=== PATIENT | female | born 1955 | race Caucasian/White ===

== ENCOUNTER 2017-09-25 17:47 | Inpatient (IN) | END 2017-09-29 10:49 | disposition left against medical advice (07) | DRG 291 ==

== ENCOUNTER 2018-10-05 11:34 | Inpatient (IN) | payer BC ==
[~2018-10-05] VITALS: Ht 177.8 cm; Wt 106.5 kg
[2018-10-05] MEDS ORDERED: PIPER-TAZO 3.375 GM IV (PMX) 100 ML IVPB STA (17:48)
[2018-10-05] MEDS ORDERED: VANCOMYCIN 1 GM (PMX) 250 ML IVPB STA (17:48)
--- NOTE | 2018-10-05 17:49 | ERD ---
ER Documentation Chief Complaint Chief Complaint Pt referred to Ed with severe lymph edema and cullulitis HPI This is a 63-year-old female with a history of CHF, as well as atrial fibrillation who presents with shortness of breath and bilateral lower extremity edema. She has a lesion over her right bhandari, and had been referred for surgical removal, she saw the surgeon today, who noted lower extremity swelling, and redness and pain, and recommended she evaluated. Additionally over the last week patient has complained of exertional shortness of breath, with associated chest pain. She has been smoking marijuana for many years, she is a former tobacco user. He denies a fever ROS All systems reviewed and are negative except as per history of present illness. Medications Home Meds Reported Medications Estradiol (Estradiol) 1 Each Patch.tdwk, 1 EACH TD Q7D 10/05/18 Torsemide (Torsemide) 20 Mg Tablet, 20 MG PO DAILY, TAB 10/05/18 Pramipexole* (Pramipexole*) 0.25 Mg Tablet, 0.25 MG PO TID, TAB 10/05/18 Apixaban* (Eliquis*) 5 Mg Tablet, 5 MG PO BID, TAB 10/05/18 Allergies Allergies: Coded Allergies: No Known Allergy (Unverified , 10/05/18) spoke with pt, no known allergy PMhx/Soc History of Surgery: Yes Anesthesia Reaction: No Hx Neurological Disorder: Yes (restless leg syndrome) Hx Respiratory Disorders: No Hx Cardiac Disorders: Yes Hx Psychiatric Problems: No Hx Miscellaneous Medical Probl: No Hx Alcohol Use: No Hx Substance Use: No Hx Tobacco Use: No Physical Exam Vitals Vital Signs Date Temp Pulse Resp B/P (MAP) Pulse Ox O2 O2 Flow FiO2 Time Delivery Rate 10/05/18 68 16 110/80 99 Room Air 19:10 (90) 10/05/18 72 18 100 21 19:09 10/05/18 97.9 91 16 125/81 97 11:38 (96) Physical Exam Const: Well-developed, well-nourished, nontoxic Head: Atraumatic Eyes: Normal Conjunctiva ENT: Normal External Ears, Nose and Mouth. Neck: Full range of motion. No meningismus. Resp: Breath sounds are coarse bilaterally, there is mild wheezing noted Cardio: Regular rate and rhythm, no murmurs Abd: Soft, non tender, non distended. Normal bowel sounds Skin: No petechiae or rashes Back: No midline or flank tenderness Ext: There is significant edema noted bilaterally, with erythema and induration, there are no fluctuant masses, there is a 2 x 2 area with an irregular shaped lesion, with no purulent drainage, pulses are intact distally Neur: Awake and alert Psych: Normal Mood and Affect Result Diagram: 10/05/18183110/05/18 183 Results 24 hrs Laboratory Tests Test 10/05/18 18:32 10/05/18 18:35 White Blood Count 8.9 10^3/ul Red Blood Count 3.99 10^6/ul Hemoglobin 12.0 g/dl Hematocrit 37.6 % Mean Corpuscular Volume 94.2 fl Mean Corpuscular Hemoglobin 30.1 pg Mean Corpuscular Hemoglobin Concent 31.9 g/dl Red Cell Distribution Width 14.8 % Platelet Count 206 10^3/UL Mean Platelet Volume 9.9 fl Immature Granulocytes % 0.500 % Neutrophils % 74.7 % Lymphocytes % 13.0 % Monocytes % 8.6 % Eosinophils % 2.6 % Basophils % 0.6 % Nucleated Red Blood Cells % 0.0 /100WBC Immature Granulocytes # 0.040 10^3/ul Neutrophils # 6.6 10^3/ul Lymphocytes # 1.2 10^3/ul Monocytes # 0.8 10^3/ul Eosinophils # 0.2 10^3/ul Basophils # 0.1 10^3/ul Nucleated Red Blood Cells # 0.0 10^3/ul Prothrombin Time 14.6 Sec Prothrombin Time Ratio 1.1 INR International Normalized Ratio 1.13 Activated Partial Thromboplast Time 28.4 Sec Urine Color YELLOW Urine Clarity SLIGHTLY CLOUDY Urine pH 7.0 Urine Specific [place] 1.029 Urine Ketones TRACE mg/dL Urine Nitrite NEGATIVE mg/dL Urine Bilirubin NEGATIVE mg/dL Urine Urobilinogen 1+ mg/dL Urine Leukocyte Esterase TRACE O[place]a/ul Urine Microscopic RBC 2 /HPF Urine Microscopic WBC 1 /HPF Urine Bacteria FEW /HPF Urine Hemoglobin NEGATIVE mg/dL Urine Glucose NEGATIVE mg/dL Urine Total Protein NEGATIVE mg/dl Sodium Level 141 mmol/L Potassium Level 4.4 mmol/L Chloride Level 107 mmol/L Carbon Dioxide Level 28 mmol/L Anion Gap 6 Blood Urea Nitrogen 21 mg/dl Creatinine 0.89 mg/dl Est Glomerular Filtrat Rate mL/min > 60 mL/min Glucose Level 93 mg/dl Calcium Level 8.9 mg/dl Total Bilirubin 0.2 mg/dl Direct Bilirubin 0.00 mg/dl Indirect Bilirubin 0.2 mg/dl Aspartate Amino Transf (AST/SGOT) 41 IU/L Alanine Aminotransferase (ALT/SGPT) 34 IU/L Alkaline Phosphatase 110 IU/L Troponin I < 0.012 ng/ml B-Type Natriuretic Peptide 1330 PG/ML Total Protein 6.6 g/dl Albumin 3.6 g/dl Globulin 3.00 g/dl Albumin/Globulin Ratio 1.20 POC Venous Lactate 2.1 mmol/L Current Medications Medications Dose Sig/Carli Start Time Status Last (Trade) Ordered Route PRN Stop Time Admin Dose Reason Admin Vancomycin 250 ml @ ONCE STAT 10/05/18 HCl 125 mls/hr IVPB 17:48 10/05/18 19:47 Piperacillin 100 ml @ ONCE STAT 10/05/18 DC 10/05/18 Sod/ 200 mls/hr IVPB 17:48 10/05/18 18:43 Tazobactam 18:17 Sod Albuterol 5 mg ONCE STAT 10/05/18 DC 10/05/18 (Proventil INH 18:24 10/05/18 19:09 0.083% (Neb)) 18:25 Ipratropium 0.5 mg ONCE STAT 10/05/18 DC 10/05/18 [place] INH 18:24 10/05/18 19:09 (Atrovent 18:25 0.02% (Neb)) Procedures/MDM EKG: Rate/Rhythm: Atrial fibrillation rate 74 QRS, ST, T-waves: No changes consistent w/ acute ischemia Impression: No evidence of ischemia or arrhythmia This is a 63-year-old female who presents for evaluation of shortness of breath, as well as leg swelling. Her leg swelling has been chronic for many years, she has a history of lymphedema, they were significant erythematous, and I cannot rule out cellulitis, thus we will treat empirically with vancomycin and Zosyn. She has no evidence of sepsis or severe sepsis, her exertional symptoms could be related to asthma/COPD, versus CHF, additionally she has a chronic right-sided pleural effusion which could also be extruding factor, patient will be given Lasix, and will require admission for further work-up, Accepting Care Team: Current data and ongoing care discussed. Primary: Sid Consulting: None Outstanding Data: none Departure Diagnosis: Primary Impression: Cellulitis Site of cellulitis: unspecified site Qualified Codes: L03.90 - Cellulitis, unspecified Additional Impression: Shortness of breath Condition: Stable NURY HASSAN MD October 05, 2018 17:49
[2018-10-05] MEDS ORDERED: PRAM0.25 PO (18:11)
[2018-10-05] MEDS ORDERED: APIX5TAB PO (18:11)
[2018-10-05] MEDS ORDERED: TORS20TA PO (18:12)
[2018-10-05] MEDS ORDERED: ESTR1PAT80 TD (18:14)
[2018-10-05] MEDS ORDERED: IPRATROPIUM (NEB) 0.5 MG/2.5 ML AMP INH STA (18:24)
[2018-10-05] MEDS ORDERED: ALBUTEROL 0.083% (NEB) 2.5 MG/3 ML AMP INH STA (18:24)
[2018-10-05] MEDS ORDERED: SOD CHLORIDE 0.9% 100 ML ONE (19:35)
[2018-10-05] MEDS ORDERED: IOHEXOL 350MG/ML 50 ML BTL ONE (19:35)
[2018-10-05] MEDS ORDERED: IOHEXOL 100 ML ONE (19:35)
[2018-10-05] MEDS ORDERED: PRAMIPEXOLE 0.25 MG TAB PO ONE (22:00)
[2018-10-05] MEDS ORDERED: HYDROCODONE/APAP (10/325) TAB PO ONE (22:00)
[2018-10-05] MEDS ORDERED: NACL 0.9% 3 ML SYG IV SCH (23:00)
[2018-10-05] MEDS ORDERED: ACETAMINOPHEN 325 MG TAB PO PRN (23:00)
[2018-10-05] MEDS ORDERED: ONDANSETRON 4 MG INJ IV PRN (23:00)
[2018-10-05] MEDS ORDERED: BISACODYL (EC) 5 MG TAB PO PRN (23:00)
[2018-10-05] MEDS ORDERED: DOCUSATE SODIUM 100 MG CAP PO PRN (23:00)
[2018-10-05] MEDS ORDERED: ACETAMINOPHEN 650 MG SUPP PR PRN (23:00)
[2018-10-05] MEDS ORDERED: MAGNESIUM HYDROXIDE 30ML CUP PO PRN (23:00)
[2018-10-05 23:54] VITALS: BP 113/67; PULSE 62; RESP 18; RESP 70
[2018-10-05 23:58] VITALS: Ht 177.8 cm; Wt 106.5 kg
[2018-10-06] VITALS (12 sets, daily range): BP systolic 112–129; BP diastolic 64–77; PULSE 64–97; RESP 16–20
[2018-10-06] MEDS: HYDROCODONE/APAP (5/325) TAB PO PRN ×3 (04:55→21:02)
[2018-10-06] MEDS ORDERED: PANTOPRAZOLE 40 MG INJ IV SCH (06:00)
[2018-10-06] MEDS: PRAMIPEXOLE 0.25 MG TAB PO SCH ×4 (09:00→20:29)
[2018-10-06] MEDS ORDERED: ENOXAPARIN 30 MG/0.3 ML SYG SC SCH ×2 (09:00)
[2018-10-06] MEDS ORDERED: FAMOTIDINE 20 MG INJ IV SCH (09:00)
[2018-10-06] MEDS ORDERED: FUROSEMIDE 40 MG INJ IV SCH ×2 (09:00→11:00)
[2018-10-06] MEDS: APIXABAN 5 MG TABLET PO SCH ×2 (10:00→20:28)
[2018-10-06] MEDS: CEFTRIAXONE 1 GM/50 ML (PMX) 50 ML IVPB SCH (10:01)
--- NOTE | 2018-10-06 10:45 | CONS ---
Assessment/Plan Cardiology NYHA: II Heart Failure Type: Acute Assessment/Plan Hospital Course (Demo Recall) Acute decompensated congestive heart failure Atrial fibrillation History of mitral valve repair Cough -Patient with symptoms of progressive shortness of breath, cough, wheezing and lower extremity edema -She does have evidence of volume overload. Would increase diuretic regimen to twice daily -CT of her chest with no evidence of significant volume overload. Consider possible infectious or primary pulmonary etiology as well -Would obtain echocardiogram -Anticoagulation as tolerated Consultation Date/Type/Reason Admit Date/Time October 05, 2018 at 19:04 Type of Consult Cardiology Reason for Consultation Shortness of breath, cough and lower extremity edema Date/Time of Note DATE: 10/06/18 TIME: 10:40 Hx of Present Illness This is a 63-year-old female who presents with progressive worsening shortness of breath, lower extremity edema and cough over the past few weeks. Patient has initially noticed increased lower extremity edema. She had a recent biopsy done from the lesion on her leg. She thinks since then, everything is started. She also complains with exertional shortness of breath. She complains of a cough which is been going on for months and occasional wheezing. She feels better after resuming nebulizers in the hospital. She does admit to significant marijuana use daily. She denies any fevers or chills, denies any chest pain. 12 point review of systems was performed with all pertinent positives and negatives mentioned above and all else is negative Past Medical History Atrial fibrillation History of mitral valve repair Medical History: congestive heart failure Home Meds Reported Medications Estradiol (Estradiol) 1 Each Patch.tdwk, 1 EACH TD Q7D 10/05/18 Torsemide (Torsemide) 20 Mg Tablet, 20 MG PO DAILY, TAB 10/05/18 Pramipexole* (Pramipexole*) 0.25 Mg Tablet, 0.25 MG PO TID, TAB 10/05/18 Apixaban* (Eliquis*) 5 Mg Tablet, 5 MG PO BID, TAB 10/05/18 Medications Current Medications Apixaban (Eliquis) 5 mg BID PO Last administered on 10/06/18at 10:00; Admin Dose 5 MG; Start 10/06/18 at 09:00 Pramipexole (Mirapex) 0.25 mg TID PO ; Start 10/06/18 at 09:00 IV Flush (NS 3 ml) 3 ml PER PROTOCOL IV ; Start 10/05/18 at 23:00 Ondansetron HCl (Zofran Inj) 4 mg Q6H PRN IV NAUSEA/VOMITING; Start 10/05/18 at 23:00 Acetaminophen (Tylenol Tab) 650 mg Q6H PRN PO .PAIN 1-3 OR TEMP; Start 10/05/18 at 23:00 Acetaminophen (Tylenol Supp) 650 mg Q6H PRN NC .PAIN 1-3 OR TEMP; Start 10/05/18 at 23:00 Acetaminophen/ Hydrocodone Bitart ([place] (5/325)) 1 tab Q6H PRN PO .MOD PAIN 4- 6 Last administered on 10/06/18at 04:55; Admin Dose 1 TAB; Start 10/05/18 at 23:00 Docusate Sodium (Colace) 100 mg Q12H PRN PO .CONSTIPATION; Start 10/05/18 at 23:00 Magnesium Hydroxide (Milk Of Mag) 30 ml DAILY PRN PO .CONSTIPATION; Start 10/05/18 at 23:00 Bisacodyl (Dulcolax) 5 mg DAILY PRN PO .CONSTIPATION; Start 10/05/18 at 23:00 Ceftriaxone Sodium 50 ml @ 100 mls/hr DAILY IVPB Last administered on 10/06/18at 10:01; Admin Dose 100 MLS/HR; Start 10/06/18 at 09:00 Furosemide (Lasix) 40 mg DAILY IV Last administered on 10/06/18at 10:00; Admin Dose 40 MG; Start 10/06/18 at 09:00 Enoxaparin Sodium (Lovenox) 30 mg DAILY SC ; Start 10/06/18 at 09:00; Status UNV Famotidine (Pepcid Iv) 20 mg BID IV Last administered on 10/06/18at 10:00; Admin Dose 20 MG; Start 10/06/18 at 09:00 Allergies: Coded Allergies: No Known Allergy (Unverified , 10/05/18) spoke with pt, no known allergy Past Surgical History Past Surgical Hx: other (Mitral valve repair) Social History Smoking Status: Unknown if ever smoked Drug Use: marijuana Exam/Review of Systems Vital Signs Vitals Vital Signs Date Temp Pulse Resp B/P (MAP) Pulse Ox O2 O2 Flow FiO2 Time Delivery Rate 10/06/18 98.1 67 16 129/74 98 Room Air 10:02 (92) 10/05/18 21 19:09 Exam Constitutional: alert, oriented (No apparent distress, no dyspnea with speaking, becomes agitated at times) Head: normocephalic Respiratory: other (Course breath sounds bilaterally with scattered wheezing and rhonchi) Cardiovascular: irregular rhythm (S1-S2 heard) Gastrointestinal: soft, non-tender, bowel sounds Extremities: edema, other (Lesion right lower extremity) Labs Result Diagram: 10/06/18 0421 10/06/18 0421 Results 24hrs Laboratory Tests Test 10/05/18 18:32 10/05/18 18:35 10/05/18 20:41 10/05/18 21:49 White Blood Count 8.9 Red Blood Count 3.99 L Hemoglobin 12.0 Hematocrit 37.6 Mean Corpuscular 94.2 Volume Mean Corpuscular 30.1 Hemoglobin Mean Corpuscular 31.9 L Hemoglobin Concent Red Cell 14.8 H Distribution Width Platelet Count 206 Mean Platelet 9.9 Volume Immature 0.500 H Granulocytes % Neutrophils % 74.7 Lymphocytes % 13.0 L Monocytes % 8.6 Eosinophils % 2.6 Basophils % 0.6 Nucleated Red 0.0 Blood Cells % Immature 0.040 H Granulocytes # Neutrophils # 6.6 Lymphocytes # 1.2 Monocytes # 0.8 Eosinophils # 0.2 Basophils # 0.1 Nucleated Red 0.0 Blood Cells # Prothrombin Time 14.6 Prothrombin Time 1.1 Ratio INR International 1.13 Normalized Ratio Activated 28.[address] Time Urine Color YELLOW Urine Clarity SLIGHTLY CLOUDY A Urine pH 7.0 Urine Specific 1.029 [place] Urine Ketones TRACE A Urine Nitrite NEGATIVE Urine Bilirubin NEGATIVE Urine Urobilinogen 1+ H Urine Leukocyte TRACE A Esterase Urine Microscopic 2 RBC Urine Microscopic 1 WBC Urine Bacteria FEW A Urine Hemoglobin NEGATIVE Urine Glucose NEGATIVE Urine Total NEGATIVE Protein Sodium Level 141 Potassium Level 4.4 Chloride Level 107 Carbon Dioxide 28 Level Anion Gap 6 Blood Urea 21 H Nitrogen Creatinine 0.89 Est Glomerular > 60 Filtrat Rate mL/min Glucose Level 93 Calcium Level 8.9 Total Bilirubin 0.2 Direct Bilirubin 0.00 Indirect Bilirubin 0.2 Aspartate Amino 41 Transf (AST/SGOT) Alanine 34 Aminotransferase ( ALT/SGPT) Alkaline 110 Phosphatase Troponin I < 0.012 B-Type Natriuretic 1330 H Peptide Total Protein 6.6 Albumin 3.6 Globulin 3.00 Albumin/Globulin 1.20 Ratio POC Venous Lactate 2.1 *H 1.6 Lactic Acid Level 1.0 Test 10/06/18 00:15 10/06/18 04:21 Creatine Kinase 158 145 Creatine Kinase 2.5 2.3 Index Creatinine Kinase 3.92 H 3.28 H MB (Mass) Troponin I < 0.012 < 0.012 White Blood Count 6.7 # Red Blood Count 3.81 L Hemoglobin 11.5 L Hematocrit 35.7 L Mean Corpuscular 93.7 Volume Mean Corpuscular 30.2 Hemoglobin Mean Corpuscular 32.2 Hemoglobin Concent Red Cell 14.8 H Distribution Width Platelet Count 183 Mean Platelet 9.6 Volume Immature 0.400 Granulocytes % Neutrophils % 68.9 Lymphocytes % 18.6 Monocytes % 9.2 Eosinophils % 2.5 Basophils % 0.4 Nucleated Red 0.0 Blood Cells % Immature 0.030 Granulocytes # Neutrophils # 4.6 Lymphocytes # 1.3 Monocytes # 0.6 Eosinophils # 0.2 Basophils # 0.0 Nucleated Red 0.0 Blood Cells # Sodium Level 141 Potassium Level 4.6 Chloride Level 111 H Carbon Dioxide 26 Level Anion Gap 4 L Blood Urea 17 Nitrogen Creatinine 0.87 Est Glomerular > 60 Filtrat Rate mL/min Glucose Level 95 Calcium Level 8.8 Total Bilirubin 0.4 Direct Bilirubin 0.00 Indirect Bilirubin 0.4 Aspartate Amino 35 Transf (AST/SGOT) Alanine 34 Aminotransferase ( ALT/SGPT) Alkaline 101 Phosphatase Total Protein 6.2 Albumin 3.2 L Globulin 3.00 Albumin/Globulin 1.06 Ratio Imaging Imaging ECG demonstrates atrial fibrillation at 74 bpm, QRS 96 ms, PVC, nonspecific ST abnormalities Medications Medications Current Medications Apixaban (Eliquis) 5 mg BID PO Last administered on 10/06/18at 10:00; Admin Dose 5 MG; Start 10/06/18 at 09:00 Pramipexole (Mirapex) 0.25 mg TID PO ; Start 10/06/18 at 09:00 IV Flush (NS 3 ml) 3 ml PER PROTOCOL IV ; Start 10/05/18 at 23:00 Ondansetron HCl (Zofran Inj) 4 mg Q6H PRN IV NAUSEA/VOMITING; Start 10/05/18 at 23:00 Acetaminophen (Tylenol Tab) 650 mg Q6H PRN PO .PAIN 1-3 OR TEMP; Start 10/05/18 at 23:00 Acetaminophen (Tylenol Supp) 650 mg Q6H PRN NC .PAIN 1-3 OR TEMP; Start 10/05/18 at 23:00 Acetaminophen/ Hydrocodone Bitart ([place] (5/325)) 1 tab Q6H PRN PO .MOD PAIN 4- 6 Last administered on 10/06/18at 04:55; Admin Dose 1 TAB; Start 10/05/18 at 23:00 Docusate Sodium (Colace) 100 mg Q12H PRN PO .CONSTIPATION; Start 10/05/18 at 23:00 Magnesium Hydroxide (Milk Of Mag) 30 ml DAILY PRN PO .CONSTIPATION; Start 10/05/18 at 23:00 Bisacodyl (Dulcolax) 5 mg DAILY PRN PO .CONSTIPATION; Start 10/05/18 at 23:00 Ceftriaxone Sodium 50 ml @ 100 mls/hr DAILY IVPB Last administered on 09/27 at 10:01; Admin Dose 100 MLS/HR; Start 10/06/18 at 09:00 Furosemide (Lasix) 40 mg DAILY IV Last administered on 10/06/18at 10:00; Admin Dose 40 MG; Start 10/06/18 at 09:00 Enoxaparin Sodium (Lovenox) 30 mg DAILY SC ; Start 10/06/18 at 09:00; Status UNV Famotidine (Pepcid Iv) 20 mg BID IV Last administered on 10/06/18at 10:00; Admin Dose 20 MG; Start 10/06/18 at 09:00 Juvenal Bond DO October 06, 2018 10:45
--- NOTE | 2018-10-06 13:43 | RADRPT ---
Echocardiogram Report Patient Name: LAVELL LIMPatient ID: [id number] : 1955 (63y 4m)Study Date: 10/06/2018 11:05:41 AM Gender: FAccession #: [id number] Tech: [facility] Location: 3307-A Ref.Physician: JUVENAL BOND Height(Cm): BSA: Weight(Kg): Quality: AdequateAccount #: Procedures: Echocardiographic Report: Transthoracic echocardiogram with complete 2D, M-Mode, and doppler examination. Indications: Congential Heart Disease, MV Repair. Measurements: 2D/M Mode Doppler Measurement Value Normal Range Measurement Value Normal Range LVIDd 2D 5.6 [ 3.8 - 5.2 ] cm AV Peak Leonard 1.4 [ 100.0 - 170.0 ] cm/sec LVIDs 2D 4.7 [ 2.2 - 3.5 ] cm AV Peak PG 8.0 [ 2.0 - 9.0 ] mmHg LVPWd 2D 1.0 [ 0.6 - 0.9 ] cm LVOT Peak Leonard 0.5 [ 70.0 - 110.0 ] cm/sec IVSd 2D 1.0 [ 0.6 - 0.9 ] cm LVOT Peak PG 1.0 [ 2.0 - 6.0 ] mmHg AoR Diam 2D 3.1 [ 2.3 - 3.1 ] cm MV Peak Leonard 1.9 [ 60.0 - 130.0 ] cm/sec EDV 2D 152.0 [ 46.0 - 106.0 ] ml MV Peak PG 15.0 [ 1.0 - 10.0 ] mmHg ESV 2D 102.0 [ 14.0 - 42.0 ] ml MV Mean Leonard 0.7 cm/sec EF 2D 32.9 [ 54.0 - 74.0 ] percent MV Mean PG 3.0 mmHg LA Dimen 2D 5.6 [ 2.7 - 3.8 ] cm MV VTI 59.9 cm TR Peak Leonard 2.1 [ 100.0 - 280.0 ] cm/sec TR Peak PG 17.0 mmHg RVSP 32.0 [ 10.0 - 36.0 ] mmHg Findings: Left Ventricle: Lower limits of normal systolic function. Left ventricular wall thickness upper limits of normal. Mild enlargement of left ventricle cavity. Ejection fraction is visually estimated at 50 %. Abnormal Diastolic Function. Right Ventricle: Normal right ventricular size. Normal right ventricular systolic function. Left Atrium: There is severe enlargement of left atrium. Right Atrium: The right atrium is normal in size. Mitral Valve: Mitral valve repair. Mild mitral leaflet calcification. Mild mitral annular calcification. Trace mitral regurgitation. Aortic Valve: No hemodynamically significant aortic stenosis by doppler. Aortic cusps appear mildly calcified. Tricuspid Valve: Normal appearance of the tricuspid valve. Estimated peak PA systolic pressure 32 mmHg. There is mild tricuspid regurgitation. Pericardium: Normal pericardium with no significant pericardial effusion. Aorta: Normal aortic root. IVC: Dilated IVC without respiratory collapse consistent with elevated right atrial pressure. Conclusions: Lower limits of normal systolic function. Left ventricular wall thickness upper limits of normal. Mild enlargement of left ventricle cavity. Ejection fraction is visually estimated at 50 %. Abnormal Diastolic Function. Normal right ventricular size. Normal right ventricular systolic function. There is severe enlargement of left atrium. The right atrium is normal in size. Mitral valve repair. Mild mitral leaflet calcification. Trace mitral regurgitation. No hemodynamically significant aortic stenosis by doppler. Estimated peak PA systolic pressure 32 mmHg. There is mild tricuspid regurgitation. Normal pericardium with no significant pericardial effusion. Electronically Signed By: Juvenal Bond 2018-10-06 13:43:20 PDT
--- NOTE | 2018-10-06 14:06 | HP ---
PARTH LORENZOA 10/06/18 1406: Date/Time of Note Date/Time of Note DATE: 10/06/18 TIME: 14:01 Assessment/Plan VTE Prophylaxis [place] [facility] [place] risk: 2 SCD applied (from [facility] [place] No SCD contraindicated: bilateral LE trauma Pharmacological prophylaxis: apixaban Lines/Catheters IV Catheter Type (from [facility] Saline Lock Urinary Cath still in place: No Assessment/Plan Hospital Course 1. Acute decompensated congestive heart failure, EF 50% 2. Atrial fibrillation 3. History of mitral valve repair 4. Cough 5. Obesity 6. history of restless legs syndrome, 7. Lymphedema lower extremities mixed etiology pt had vascular surgery on lower extremities, also abdominal liposuction. 8. History of being transgender , ow changed gender, currently on estrogen 9. Keratoacanthoma right leg with cellulitis, s/p biopsy. results are pending 10, S/p tonsillectomy, S.p removal of Tellez's neuroma, 2000, left wrist fracture fixed, 1997, open heart surgery, mitral valve repair 05/2009, full facial reconstruction, facelift, neck lift 03/2013 as far as gender reassignment surgery, 2012, leg veins palliative surgery, 2014, facelift, neck lift, breast augmentation twice, liposaction, and hair transplants. 10. hx of trauma right foot recently Assessment/Plan -Patient with symptoms of progressive shortness of breath, cough, wheezing and lower extremity edema -DVT prop. Eliquiz BID -tele -ID consult -c/w Rocephin -supp. oxygen -breathing treatment -pain meds -GI proph. Famotidine BID - diuretic regimen to twice daily -CT of her chest with no evidence of significant volume overload. Consider possible infectious or primary pulmonary etiology as well -Echocardiogram:Ejection fraction is visually estimated at 50 %. Abnormal Diastolic Function. -Dr Clark cardiology - right lung thoracentesis. -pt need plastic surgeon consultation right leg for reconstructive surgery outpatient Result Diagram: 10/06/1842010/06/181 Results 24hrs Laboratory Tests Test 10/05/18 18:32 10/05/18 18:35 10/05/18 20:41 10/05/18 21:49 White Blood Count 8.9 Red Blood Count 3.99 L Hemoglobin 12.0 Hematocrit 37.6 Mean Corpuscular 94.2 Volume Mean Corpuscular 30.1 Hemoglobin Mean Corpuscular 31.9 L Hemoglobin Concent Red Cell 14.8 H Distribution Width Platelet Count 206 Mean Platelet 9.9 Volume Immature 0.500 H Granulocytes % Neutrophils % 74.7 Lymphocytes % 13.0 L Monocytes % 8.6 Eosinophils % 2.6 Basophils % 0.6 Nucleated Red 0.0 Blood Cells % Immature 0.040 H Granulocytes # Neutrophils # 6.6 Lymphocytes # 1.2 Monocytes # 0.8 Eosinophils # 0.2 Basophils # 0.1 Nucleated Red 0.0 Blood Cells # Prothrombin Time 14.6 Prothrombin Time 1.1 Ratio INR International 1.13 Normalized Ratio Activated 28.[address] Time Urine Color YELLOW Urine Clarity SLIGHTLY CLOUDY A Urine pH 7.0 Urine Specific 1.029 [place] Urine Ketones TRACE A Urine Nitrite NEGATIVE Urine Bilirubin NEGATIVE Urine Urobilinogen 1+ H Urine Leukocyte TRACE A Esterase Urine Microscopic 2 RBC Urine Microscopic 1 WBC Urine Bacteria FEW A Urine Hemoglobin NEGATIVE Urine Glucose NEGATIVE Urine Total NEGATIVE Protein Sodium Level 141 Potassium Level 4.4 Chloride Level 107 Carbon Dioxide 28 Level Anion Gap 6 Blood Urea 21 H Nitrogen Creatinine 0.89 Est Glomerular > 60 Filtrat Rate mL/min Glucose Level 93 Calcium Level 8.9 Total Bilirubin 0.2 Direct Bilirubin 0.00 Indirect Bilirubin 0.2 Aspartate Amino 41 Transf (AST/SGOT) Alanine 34 Aminotransferase ( ALT/SGPT) Alkaline 110 Phosphatase Troponin I < 0.012 B-Type Natriuretic 1330 H Peptide Total Protein 6.6 Albumin 3.6 Globulin 3.00 Albumin/Globulin 1.20 Ratio POC Venous Lactate 2.1 *H 1.6 Lactic Acid Level 1.0 Test 10/06/18 00:15 10/06/18 04:21 Creatine Kinase 158 145 Creatine Kinase 2.5 2.3 Index Creatinine Kinase 3.92 H 3.28 H MB (Mass) Troponin I < 0.012 < 0.012 White Blood Count 6.7 # Red Blood Count 3.81 L Hemoglobin 11.5 L Hematocrit 35.7 L Mean Corpuscular 93.7 Volume Mean Corpuscular 30.2 Hemoglobin Mean Corpuscular 32.2 Hemoglobin Concent Red Cell 14.8 H Distribution Width Platelet Count 183 Mean Platelet 9.6 Volume Immature 0.400 Granulocytes % Neutrophils % 68.9 Lymphocytes % 18.6 Monocytes % 9.2 Eosinophils % 2.5 Basophils % 0.4 Nucleated Red 0.0 Blood Cells % Immature 0.030 Granulocytes # Neutrophils # 4.6 Lymphocytes # 1.3 Monocytes # 0.6 Eosinophils # 0.2 Basophils # 0.0 Nucleated Red 0.0 Blood Cells # Sodium Level 141 Potassium Level 4.6 Chloride Level 111 H Carbon Dioxide 26 Level Anion Gap 4 L Blood Urea 17 Nitrogen Creatinine 0.87 Est Glomerular > 60 Filtrat Rate mL/min Glucose Level 95 Calcium Level 8.8 Total Bilirubin 0.4 Direct Bilirubin 0.00 Indirect Bilirubin 0.4 Aspartate Amino 35 Transf (AST/SGOT) Alanine 34 Aminotransferase ( ALT/SGPT) Alkaline 101 Phosphatase Total Protein 6.2 Albumin 3.2 L Globulin 3.00 Albumin/Globulin 1.06 Ratio HPI/ROS Admit Date/Time Admit Date/Time October 05, 2018 at 19:04 Hx of Present Illness This is a 63-year-old female who presents with progressive worsening shortness of breath, lower extremity edema and cough over the past few weeks. Patient has initially noticed increased lower extremity edema fro 2 weeks. She had a recent biopsy done from the lesion on her right leg by dr Leos. She thinks since then, everything is started. She also complains with exertional shortness of breath. She complains of a dry cough which is been going on for months and occasional wheezing. She feels better after resuming nebulizers in the hospital. She does admit to significant marijuana use daily, she quit smoking cigarettes 2011. PMX: , CHF, history of restless legs syndrome, Hx of a.fib. on Eliquiz. , history of transgender , currently on estrogen Surgical history: In 1968 tonsillectomy, in 1973, wisdom teeth extraction, 2000, removal of Tellez's neuroma, 2000, left wrist fracture fixed, 1997, open heart surgery, mitral valve repair 05/2009, full facial reconstruction, facelift, neck lift 03/2013 as far as gender reassignment surgery, 2012, leg veins palliative surgery, 2014, facelift, neck lift, breast augmentation, and hair transplants. ROS Constitutional: other (pain) Respiratory: cough, shortness of breath Musculoskeletal: back pain Lymphatic: lymphadema (lower extremities) PMH/Family/Social Past Medical History Medical History: congestive heart failure Medications Current Medications Apixaban (Eliquis) 5 mg BID PO Last administered on 10/06/18at 10:00; Admin Dose 5 MG; Start 10/06/18 at 09:00 Pramipexole (Mirapex) 0.25 mg TID PO ; Start 10/06/18 at 09:00 IV Flush (NS 3 ml) 3 ml PER PROTOCOL IV ; Start 10/05/18 at 23:00 Ondansetron HCl (Zofran Inj) 4 mg Q6H PRN IV NAUSEA/VOMITING; Start 10/05/18 at 23:00 Acetaminophen (Tylenol Tab) 650 mg Q6H PRN PO .PAIN 1-3 OR TEMP; Start 10/05/18 at 23:00 Acetaminophen (Tylenol Supp) 650 mg Q6H PRN [place] .PAIN 1-3 OR TEMP; Start 10/05/18 at 23:00 Acetaminophen/ Hydrocodone Bitart ([place] (5/325)) 1 tab Q6H PRN PO .MOD PAIN 4- 6 Last administered on 10/06/18at 04:55; Admin Dose 1 TAB; Start 10/05/18 at 23:00 Docusate Sodium (Colace) 100 mg Q12H PRN PO .CONSTIPATION; Start 10/05/18 at 23:00 Magnesium Hydroxide (Milk Of Mag) 30 ml DAILY PRN PO .CONSTIPATION; Start 10/05/18 at 23:00 Bisacodyl (Dulcolax) 5 mg DAILY PRN PO .CONSTIPATION; Start 10/05/18 at 23:00 Ceftriaxone Sodium 50 ml @ 100 mls/hr DAILY IVPB Last administered on 10/06at 10:01; Admin Dose 100 MLS/HR; Start 10/06/18 at 09:00 Famotidine (Pepcid Iv) 20 mg BID IV Last administered on 10/06/18at 10:00; Admin Dose 20 MG; Start 10/06/18 at 09:00 Furosemide (Lasix) 40 mg BID DIURETICS IV ; Start 10/06/18 at 18:00; Stop 10/07/18 at 18:01 Coded Allergies: No Known Allergy (Unverified , 10/05/18) spoke with pt, no known allergy Past Surgical History Past Surgical Hx: other (Mitral valve repair and other) Social History Alcohol Use: none Smoking Status: Former smoker Drug Use: marijuana Exam/Review of Systems Vital Signs Vitals Vital Signs Date Temp Pulse Resp B/P (MAP) Pulse Ox O2 O2 Flow FiO2 Time Delivery Rate 10/06/18 97.9 75 17 124/67 97 Room Air 13:46 (86) 10/05/18 21 19:09 Exam Constitutional: alert, oriented Head: normocephalic Neck: supple Respiratory: congested cough, diminished breath sounds Cardiovascular: regular rate and rhythm Gastrointestinal: soft Musculoskeletal: swelling (3 +, right leg wound) SARAH GARCIA MD 10/06/18 1628: Assessment/Plan Assessment/Plan Assessment/Plan pt seen and examined with DRIVE IN TELLER BLE EDEMA/ LYmphedema? ? iv diurectics le cellutuis,> iv abx, will call ID Will get reports of CT A+P if done Result Diagram: 10/06/1842010/06/18 042 PMH/Family/Social Past Medical History Coded Allergies: No Known Allergy (Unverified , 10/05/18) spoke with pt, no known allergy KIRTI LORENZO October 06, 2018 14:06 SARAH GARCIA MD October 06, 2018 16:28
[2018-10-06] MEDS ORDERED: ALPRAZOLAM 0.25 MG TAB PO ONE (17:00)
[2018-10-06] MEDS ORDERED: MAGNESIUM OXIDE 400 MG TAB PO ONE (17:00)
[2018-10-06] MEDS: FUROSEMIDE 40 MG INJ IV SCH (17:27)
[2018-10-06] MEDS ORDERED: VANCOMYCIN IV PER PHARMACY XX SCH (17:30)
--- NOTE | 2018-10-06 18:01 | CONS ---
DATE OF ADMISSION: 10/05/2018 DATE OF CONSULTATION: 10/06/2018 TYPE OF CONSULTATION: Infectious disease. REASON FOR CONSULTATION: Antibiotic management. HISTORY OF PRESENT ILLNESS: Luz Marina Fowler is a 63-year-old female status post transgender surgery who comes in with severe lymphedema and cellulitis and is being seen for antibiotic management. Her past problems include acute decompensated congestive heart failure with ejection fraction of 50%, atrial fibrillation, history of mitral valve repair, obesity, restless leg syndrome. The patient has lymphe elke of the lower extremities. She has vascular surgery on both lower extremities. She also had abd ominal liposuction. She had gender change in 2012, currently on estrogens. She had a keratoacanthom a of the right leg with cellulitis, status post biopsy. Other surgeries include status post tonsille ctomy, status post removal of a Tellez's neuroma status post left wrist fracture, open heart surgery with mitral valve repair in 05/2009, full facial reconstruction, facelift, neck lift in 03/2010, hist ory of trauma to the right foot recently. The patient presents with shortness of breath. She is cu rrently on, I believe, Rocephin. Dr. Bond is seeing her for cardiology. She needs an ultrasound f or right lung thoracentesis and plastic surgeon consult for the right leg for reconstructive surgery as an outpatient. On admission, her white count was 8.9, H and H of 12 and 37.6, platelet count 206, 000. BUN and creatinine is 21/0.89. PHYSICAL EXAMINATION: SKIN: Without generalized rash. HEENT: Within normal limits. NECK: Supple. LYMPH NODES: None palpable. CHEST: Decreased breath sounds at the bases. HEART: Without murmur or gallop. ABDOMEN: Soft, nontender without organosplenomegaly or masses. EXTREMITIES: She has significant edema bilaterally with erythema and induration. There are no fluct uant masses. A 2 x 2 cm area of irregularly shaped lesion. No purulent drainage. RECTAL AND GENITAL: Deferred. NEUROLOGIC: No focal neurological abnormalities. HOSPITAL COURSE: A chest x-ray shows right-sided pleural effusion with infiltrates in the right lowe r lobe suggestive of airspace disease. These findings are stable compared to 09/25/2018; however, leonard perimposed airspace disease is not excluded. A CT scan of thorax, CT angiogram shows no pulmonary em boli, no aortic dissection, extensive chronic abnormalities of the right chest, pleural thickening an d parenchymal mass-like infiltrates. The patient is currently on ceftriaxone. She was on vancomycin and Zosyn. Urine shows mixed gram-positive organisms. I would think that the patient would require vancomycin and cefepime and Zosyn and I believe we will change the antibiotics around. I will dicta te my findings to the hospitalist I believe to Dr. Mario and Dr. Doshi and nurse practitioner Daniela mathews. Dictated By: SIMEON STINSON MD LIBAN/NTS Conf#: [id number] DID#: [id number] CC: GARDENIA DOSHI MD;*EndCC*
[2018-10-06] MEDS: IPRATROPIUM (NEB) 0.5 MG/2.5 ML AMP HHN SCH (20:08)
[2018-10-06] MEDS: ALBUTEROL 0.083% (NEB) 2.5 MG/3 ML AMP HHN SCH (20:08)
[2018-10-06] MEDS: VANCOMYCIN HCL 1.25 GM in SOD CHLORIDE 0.9% 250 ML IVPB SCH (20:29)
[2018-10-06] MEDS: FAMOTIDINE 20 MG TAB PO SCH (20:29)
[2018-10-06] MEDS: ALPRAZOLAM 0.5 MG TAB PO SCH (21:00)
[2018-10-07] VITALS (12 sets, daily range): BP systolic 117–148; BP diastolic 63–88; PULSE 64–150; RESP 16–18
[2018-10-07] MEDS: IPRATROPIUM (NEB) 0.5 MG/2.5 ML AMP HHN SCH ×4 (02:10→20:16)
[2018-10-07] MEDS: ALBUTEROL 0.083% (NEB) 2.5 MG/3 ML AMP HHN SCH ×4 (02:10→20:16)
[2018-10-07] MEDS ORDERED: MAGNESIUM OXIDE 400 MG TAB PO ONE ×2 (03:30→17:00)
[2018-10-07] MEDS: FUROSEMIDE 40 MG INJ IV SCH ×2 (05:53→17:01)
[2018-10-07] MEDS: HYDROCODONE/APAP (5/325) TAB PO PRN ×3 (06:02→21:48)
[2018-10-07] MEDS: FAMOTIDINE 20 MG TAB PO SCH ×2 (09:27→21:48)
[2018-10-07] MEDS: APIXABAN 5 MG TABLET PO SCH ×2 (09:27→21:48)
[2018-10-07] MEDS: VANCOMYCIN HCL 1.25 GM in SOD CHLORIDE 0.9% 250 ML IVPB SCH ×2 (09:28→20:22)
[2018-10-07] MEDS: ALPRAZOLAM 0.5 MG TAB PO SCH ×2 (09:33→21:48)
--- NOTE | 2018-10-07 10:23 | CONS ---
Assessment/Plan Assessment/Plan Hospital Course (Demo Recall) ID PROGRESS NOTE CURRENT ABX: DAY # 2-> Vanco IV + Ceftriaxone 10/07/18 0551 10/07/18 0551 24H INTERVAL SUMMARY * Awake, alert -- BLEXT pain issues ongoing * No fevers/chills, VSS, labs, chart reviewed DIAGNOSTIC IMAGING * 10/06/18 CXT US: No pleural fluid on either side * 10/05/2018 CT Chest: IMPRESSION: * 1. No CT evidence of pulmonary embolus. * 2. No CT evidence of aortic dissection or aneurysm. * 3. Extensive chronic abnormalities of the right chest including volume loss, pleural thickening, and parenchymal mass-like infiltrates, most likely stable since 09/25/2017. * 10/05/18 CXR:1. Redemonstration of right-sided pleural effusion with infiltrates in the right lower lobe, suggestive of airspace disease. These findings are stable compared to 09/25/2017, however superimposed airspace disease is not excluded. * 10/06/18 2D ECHO: Conclusions: * Lower limits of normal systolic function. Left ventricular wall thickness upper limits of normal. Mild enlargement of left ventricle cavity. Ejection fraction is visually estimated at 50 %. Abnormal Diastolic Function. * Normal right ventricular size. Normal right ventricular systolic function. * There is severe enlargement of left atrium. * The right atrium is normal in size. * Mitral valve repair. Mild mitral leaflet calcification. Trace mitral regurgitation. * No hemodynamically significant aortic stenosis by doppler. * Estimated peak PA systolic pressure 32 mmHg. There is mild tricuspid regurgitation. * Normal pericardium with no significant pericardial effusion. MICRO/OTHER * 10/05/18 URINE CULTURE Preliminary Organism 1 MIXED GRAM POSITIVE ORGANISMS COLONY COUNT <10,000 CFU/ml * 10/05/18 BCX (-) PHYSICAL EXAMINATION: GENERAL: VSS HEENT: AT, NC, anicteric NECK: Supple, CHEST: Equal chest rise bilaterally, without dyspnea on observation HEART: Pulse RRR ABDOMEN: Soft / NT EXTREMITIES: Warm, BLEXT lymphedema w/erythema and induration * -- See photos RLEXT 2 x 2 area with an irregular shaped lesion,open wound clean wound bed SKIN: No rash, no diaphoresis ID ASSESSMENT 63 yo obese F TNS-Gender on Estrogen replacement Tx admit with: 1. Acute decompensated congestive heart failure, EF 50% w/Diastolic dysfx on ECHO * Atrial fibrillation w/LAE contributing to fluid overload * History of mitral valve repair * BNP 1330 on admission w/cough 2. Acute on chronic BLEXT Lymphedema lower extremities mixed etiology pt had vascular surgery on lower extremities, also abdominal liposuction. * Fluid overloaded state * Venous insufficiency -> venous HTN due to obesity 3. RLEXT cellulitis w/ open wound * Keratoacanthoma right leg with cellulitis, s/p biopsy. results are pending 4. hx of trauma right foot recently 5. COPD suspected w/ exacerbation -- (+)Cough * CT chest & Chest US show clear lungs * Long-term tobacco history suspect emphysema (+/-) mixed COPD 6. Prothrombotic state - Afib, Estrogen Tx, obesity, lymphedema 7. Bacteriuria vs contaminated urine sample -> Insignificant * 10/05/18 URINE CULTURE Preliminary Organism 1 MIXED GRAM POSITIVE ORGANISMS COLONY COUNT <10,000 CFU/ml ABX ALLERGIES: NKDA INVASIVES: PIV CURRENT ABX: DAY #2-> Vanco IV + Ceftriaxone ID RECOMMENDATIONS/PLAN: 1. Continue Vanco IV and Ceftriaxone 2. Swab nares for MRSA screening and obtain open wound cx . Consultation Date/Type/Reason Admit Date/Time October 05, 2018 at 19:04 Initial Consult Date Date/Time of Note DATE: 10/07/18 TIME: 10:02 Exam/Review of Systems Exam Vitals Vital Signs Date Temp Pulse Resp B/P (MAP) Pulse Ox O2 O2 Flow FiO2 Time Delivery Rate 10/07/18 75 18 Nasal 2.0 08:53 Cannula 10/07/18 97.3 130/88 94 07:26 (102) 10/05/18 21 19:09 Intake and Output 10/06/18 10/06/18 10/07/18 1515:00 23:00 07:00 IntakeIntake Total 50 ml 1220 ml 400 ml BalanceBalance 50 ml 1220 ml 400 ml Results Result Diagram: 10/07/18 0551 10/07/18 0551 Results 24hrs Laboratory Tests Test 10/06/18 17:01 10/07/18 05:51 Potassium Level 4.4 3.9 Magnesium Level 1.9 White Blood Count 7.3 Red Blood Count 3.88 L Hemoglobin 11.7 L Hematocrit 35.8 L Mean Corpuscular Volume 92.3 Mean Corpuscular Hemoglobin 30.2 Mean Corpuscular Hemoglobin Concent 32.7 Red Cell Distribution Width 14.7 H Platelet Count 209 Mean Platelet Volume 9.7 Immature Granulocytes % 0.400 Neutrophils % 72.9 Lymphocytes % 14.5 L Monocytes % 7.8 Eosinophils % 3.7 Basophils % 0.7 Nucleated Red Blood Cells % 0.0 Immature Granulocytes # 0.030 Neutrophils # 5.3 Lymphocytes # 1.1 Monocytes # 0.6 Eosinophils # 0.3 Basophils # 0.1 Nucleated Red Blood Cells # 0.0 Sodium Level 140 Chloride Level 105 Carbon Dioxide Level 28 Anion Gap 7 Blood Urea Nitrogen 21 H Creatinine 1.00 Est Glomerular Filtrat Rate mL/min 56 L Glucose Level 141 # Hemoglobin A1c 5.7 Calcium Level 8.7 Thyroid Stimulating Hormone (TSH) 3.440 Medications Medication Current Medications Apixaban (Eliquis) 5 mg BID PO Last administered on 10/07/18at 09:27; Admin Dose 5 MG; Start 10/06/18 at 09:00 IV Flush (NS 3 ml) 3 ml PER PROTOCOL IV ; Start 10/05/18 at 23:00 Ondansetron HCl (Zofran Inj) 4 mg Q6H PRN IV NAUSEA/VOMITING; Start 10/05/18 at 23:00 Acetaminophen (Tylenol Tab) 650 mg Q6H PRN PO .PAIN 1-3 OR TEMP; Start 10/05/18 at 23:00 Acetaminophen (Tylenol Supp) 650 mg Q6H PRN [place] .PAIN 1-3 OR TEMP; Start 10/05/18 at 23:00 Acetaminophen/ Hydrocodone Bitart ([place] (5/325)) 1 tab Q6H PRN PO .MOD PAIN 4- 6 Last administered on 10/07/18at 06:02; Admin Dose 1 TAB; Start 10/05/18 at 23:00 Docusate Sodium (Colace) 100 mg Q12H PRN PO .CONSTIPATION; Start 10/05/18 at 23:00 Magnesium Hydroxide (Milk Of Mag) 30 ml DAILY PRN PO .CONSTIPATION; Start 10/05/18 at 23:00 Bisacodyl (Dulcolax) 5 mg DAILY PRN PO .CONSTIPATION; Start 10/05/18 at 23:00 Ceftriaxone Sodium 50 ml @ 100 mls/hr DAILY IVPB Last administered on 10:01; Admin Dose 100 MLS/HR; Start 10/06/18 at 09:00 Furosemide (Lasix) 40 mg BID DIURETICS IV Last administered on 10/07/18 05:53; Admin Dose 40 MG; Start 10/06/18 at 18:00; Stop 10/07/18 at 18:01 Albuterol (Proventil 0.083% (Neb)) 1.25 mg Q6H RESP THERAPY HHN Last administered on 10/07/18 08:50; Admin Dose 1.25 MG; Start 10/06/18 at 20:00 Ipratropium [place] (Atrovent 0.02% (Neb)) 0.5 mg Q6H RESP THERAPY HHN Last administered on 10/07/18 08:50; Admin Dose 0.5 MG; Start 10/06/18 at 20:00 Pramipexole (Mirapex) 0.75 mg QHS PO Last administered on 10/06/18 20:29; Admin Dose 0.75 MG; Start 10/06/18 at 21:00 Alprazolam (Xanax) 0.5 mg BID PO Last administered on 10/07/18 09:33; Admin Dose 0.5 MG; Start 10/06/18 at 21:00 Vancomycin HCl (Vanco Iv Per Pharmacy) VANCOMYCIN PER PHARMACY PER PROTOCOL XX ; Start 10/06/18 at 17:30 Famotidine (Pepcid) 20 mg BID PO Last administered on 10/07/18 09:27; Admin Dose 20 MG; Start 10/06/18 at 21:00 Vancomycin HCl 1.25 gm/Sodium Chloride 250 ml @ 83.333 mls/ hr Q12H IVPB Last administered on 10/07/18 09:28; Admin Dose 83.333 MLS/HR; Start 10/06/18 at 20:00 DUDLEY ARREDONDO NP October 07, 2018 10:16
--- NOTE | 2018-10-07 12:16 | CONS ---
Consult Date/Type/Reason Admit Date/Time October 05, 2018 at 19:04 Initial Consult Date Type of Consultation: cv Date/Time of Note DATE: 10/07/18 TIME: 12:12 Subjective cardiology follow up note S: Discussed with the staff and telemetry was reviewed patient remains in atrial fibrillation heart rate is under control She is still complain of shortness of breath. No chest pain or pressure No bleeding Objective:' General: no acute distress HEENT: NC/AT. pupils are equal. round. NECK: no stridor. CV irregularly irregular. systolic murmur; no gallop or rubs. PULM: Mild wheezing / rhonchi. GI: SOFT, NT, ND, no rebound or guarding Extremity: trace B/L LE edema. no clubbing. neuro: awake and alert, OX3. Psych: Anxious but pleasant rectal: deferred Objective Vitals Vital Signs Date Temp Pulse Resp B/P (MAP) Pulse Ox O2 O2 Flow FiO2 Time Delivery Rate 10/07/18 98.2 64 16 136/72 99 11:35 (93) 10/07/18 Nasal 2.0 08:53 Cannula 10/05/18 21 19:09 Intake and Output 10/06/18 10/06/18 10/07/18 1515:00 23:00 07:00 IntakeIntake Total 50 ml 1220 ml 400 ml BalanceBalance 50 ml 1220 ml 400 ml Results/Medications Result Diagram: 10/07/18 0551 10/07/18 0551 Results 24 hrs Laboratory Tests Test 10/06/18 17:01 10/07/18 05:51 Potassium Level 4.4 3.9 Magnesium Level 1.9 White Blood Count 7.3 Red Blood Count 3.88 L Hemoglobin 11.7 L Hematocrit 35.8 L Mean Corpuscular Volume 92.3 Mean Corpuscular Hemoglobin 30.2 Mean Corpuscular Hemoglobin Concent 32.7 Red Cell Distribution Width 14.7 H Platelet Count 209 Mean Platelet Volume 9.7 Immature Granulocytes % 0.400 Neutrophils % 72.9 Lymphocytes % 14.5 L Monocytes % 7.8 Eosinophils % 3.7 Basophils % 0.7 Nucleated Red Blood Cells % 0.0 Immature Granulocytes # 0.030 Neutrophils # 5.3 Lymphocytes # 1.1 Monocytes # 0.6 Eosinophils # 0.3 Basophils # 0.1 Nucleated Red Blood Cells # 0.0 Sodium Level 140 Chloride Level 105 Carbon Dioxide Level 28 Anion Gap 7 Blood Urea Nitrogen 21 H Creatinine 1.00 Est Glomerular Filtrat Rate mL/min 56 L Glucose Level 141 # Hemoglobin A1c 5.7 Calcium Level 8.7 Thyroid Stimulating Hormone (TSH) 3.440 Home Meds Reported Medications Estradiol (Estradiol) 1 Each Patch.tdwk, 1 EACH TD Q7D 10/05/18 Torsemide (Torsemide) 20 Mg Tablet, 20 MG PO DAILY, TAB 10/05/18 Pramipexole* (Pramipexole*) 0.25 Mg Tablet, 0.25 MG PO TID, TAB 10/05/18 Apixaban* (Eliquis*) 5 Mg Tablet, 5 MG PO BID, TAB 10/05/18 Medications Current Medications Apixaban (Eliquis) 5 mg BID PO Last administered on 10/07/18at 09:27; Admin Dose 5 MG; Start 10/06/18 at 09:00 IV Flush (NS 3 ml) 3 ml PER PROTOCOL IV ; Start 10/05/18 at 23:00 Ondansetron HCl (Zofran Inj) 4 mg Q6H PRN IV NAUSEA/VOMITING; Start 10/05/18 at 23:00 Acetaminophen (Tylenol Tab) 650 mg Q6H PRN PO .PAIN 1-3 OR TEMP; Start 10/05/18 at 23:00 Acetaminophen (Tylenol Supp) 650 mg Q6H PRN [place] .PAIN 1-3 OR TEMP; Start 10/05/18 at 23:00 Acetaminophen/ Hydrocodone Bitart ([place] (5/325)) 1 tab Q6H PRN PO .MOD PAIN 4- 6 Last administered on 10/07/18at 06:02; Admin Dose 1 TAB; Start 10/05/18 at 23:00 Docusate Sodium (Colace) 100 mg Q12H PRN PO .CONSTIPATION; Start 10/05/18 at 23:00 Magnesium Hydroxide (Milk Of Mag) 30 ml DAILY PRN PO .CONSTIPATION; Start 10/05/18 at 23:00 Bisacodyl (Dulcolax) 5 mg DAILY PRN PO .CONSTIPATION; Start 10/05/18 at 23:00 Ceftriaxone Sodium 50 ml @ 100 mls/hr DAILY IVPB Last administered on 10/06/18at 10:01; Admin Dose 100 MLS/HR; Start 10/06/18 at 09:00 Furosemide (Lasix) 40 mg BID DIURETICS IV Last administered on 10/07/18 05:53; Admin Dose 40 MG; Start 10/06/18 at 18:00; Stop 10/07/18 at 18:01 Albuterol (Proventil 0.083% (Neb)) 1.25 mg Q6H RESP THERAPY HHN Last administered on 10/07/18 08:50; Admin Dose 1.25 MG; Start 10/06/18 at 20:00 Ipratropium [place] (Atrovent 0.02% (Neb)) 0.5 mg Q6H RESP THERAPY HHN Last administered on 10/07/18 08:50; Admin Dose 0.5 MG; Start 10/06/18 at 20:00 Pramipexole (Mirapex) 0.75 mg QHS PO Last administered on 10/06/18 20:29; Admin Dose 0.75 MG; Start 10/06/18 at 21:00 Alprazolam (Xanax) 0.5 mg BID PO Last administered on 10/07/18 09:33; Admin Dose 0.5 MG; Start 10/06/18 at 21:00 Vancomycin HCl (Vanco Iv Per Pharmacy) VANCOMYCIN PER PHARMACY PER PROTOCOL XX ; Start 10/06/18 at 17:30 Famotidine (Pepcid) 20 mg BID PO Last administered on 10/07/18 09:27; Admin Dose 20 MG; Start 10/06/18 at 21:00 Vancomycin HCl 1.25 gm/Sodium Chloride 250 ml @ 83.333 mls/ hr Q12H IVPB Last administered on 10/07/18 09:28; Admin Dose 83.333 MLS/HR; Start 10/06/18 at 20:00 Assessment/Plan Hospital Course (Demo Recall) Dyspnea: Multifactorial partially related to CHF but appears to be also at least partially related to her pulmonary disease History of asthma as a child Status mitral valve repair Atrial fibrillation ANEMIA ANXIETY REC cont anticoagulation HR is stable cont lasix for now and dec tomorrow if stable consider pulm consultations thank you GALEN ARMENTA,GALEN BA October 07, 2018 12:16
[2018-10-07] MEDS: CEFTRIAXONE 1 GM/50 ML (PMX) 50 ML IVPB SCH (12:29)
--- NOTE | 2018-10-07 14:13 | PN ---
Date/Time of Note Date/Time of Note DATE: 10/07/18 TIME: 14:10 Assessment/Plan VTE Prophylaxis Risk score (from Ns)>0 risk: 2 SCD applied (from Ns): No SCD contraindicated: low risk/ambulating Pharmacological prophylaxis: apixaban Lines/Catheters IV [facility] (from [facility] Saline Lock Urinary Cath still in place: No Assessment/Plan Hospital Course 1. SOB with acute decompensated congestive heart failure, EF 50% 2. Chronic Atrial fibrillation, controlled 3. History of mitral valve repair 4. Cough, decreased 5. Obesity 6. history of restless legs syndrome, 7. Lymphedema lower extremities mixed etiology pt had vascular surgery on lower extremities, also abdominal liposuction. 8. History of being transgender , ow changed gender, currently on estrogen 9. Keratoacanthoma right leg with cellulitis, s/p biopsy. results are pending 10, S/p tonsillectomy, S.p removal of Tellez's neuroma, 2000, left wrist fracture fixed, 1997, open heart surgery, mitral valve repair 05/2009, full facial reconstruction, facelift, neck lift 03/2013 as far as gender reassignment surgery, 2012, leg veins palliative surgery, 2014, facelift, neck lift, breast augmentation twice, liposuction, and hair transplants. 10. hx of trauma right foot recently 11. Anemia Assessment/Plan -Patient with symptoms of progressive shortness of breath, cough, wheezing and lower extremity edema -DVT prop. Eliquiz BID -tele -US lower extremities ordered -ID consult Dr Walter seen -c/w Rocephin and Vanco -supp. oxygen -fluid restrictions 1 L -breathing treatment -pain meds -GI proph. Famotidine BID - diuretic regimen to twice daily -CT of her chest with no evidence of significant volume overload. Consider possible infectious or primary pulmonary etiology as well -Echocardiogram: Ejection fraction is visually estimated at 50 %. Abnormal Diastolic Function. -Dr Bond cardiology -US right lung normal -pt need plastic surgeon consultation right leg for reconstructive surgery outpatient Result Diagram: 10/07/18 0551 10/07/18 0551 Results 24hrs Laboratory Tests Test 10/06/18 17:01 10/07/18 05:51 Potassium Level 4.4 3.9 Magnesium Level 1.9 White Blood Count 7.3 Red Blood Count 3.88 L Hemoglobin 11.7 L Hematocrit 35.8 L Mean Corpuscular Volume 92.3 Mean Corpuscular Hemoglobin 30.2 Mean Corpuscular Hemoglobin Concent 32.7 Red Cell Distribution Width 14.7 H Platelet Count 209 Mean Platelet Volume 9.7 Immature Granulocytes % 0.400 Neutrophils % 72.9 Lymphocytes % 14.5 L Monocytes % 7.8 Eosinophils % 3.7 Basophils % 0.7 Nucleated Red Blood Cells % 0.0 Immature Granulocytes # 0.030 Neutrophils # 5.3 Lymphocytes # 1.1 Monocytes # 0.6 Eosinophils # 0.3 Basophils # 0.1 Nucleated Red Blood Cells # 0.0 Sodium Level 140 Chloride Level 105 Carbon Dioxide Level 28 Anion Gap 7 Blood Urea Nitrogen 21 H Creatinine 1.00 Est Glomerular Filtrat Rate mL/min 56 L Glucose Level 141 # Hemoglobin A1c 5.7 Calcium Level 8.7 Thyroid Stimulating Hormone (TSH) 3.440 Subjective 24 Hr Interval Summary Cardiovascular: no complaints Musculoskeletal: bone/joint pain, restricted range of motion Skin: skin lesions (RIGHT LEG) Exam/Review of Systems Exam Vitals Vital Signs Date Temp Pulse Resp B/P (MAP) Pulse Ox O2 O2 Flow FiO2 Time Delivery Rate 10/07/18 2.0 13:30 10/07/18 72 18 Nasal 13:25 Cannula 10/07/18 98.2 136/72 99 11:35 (93) 10/05/18 21 19:09 Intake and Output 10/06/18 10/06/18 10/07/18 1515:00 23:00 07:00 IntakeIntake Total 50 ml 1220 ml 400 ml BalanceBalance 50 ml 1220 ml 400 ml Constitutional: alert, oriented Psych: nl mood/affect Head: normocephalic Eyes: nl conjunctiva Respiratory: diminished breath sounds Cardiovascular: irregular rhythm (AFIB ON MONITOR) Gastrointestinal: soft Musculoskeletal: swelling (2 PLUS) Skin: other (RIGHT LEG KERATOACANTOMA) Results Results 24hrs Laboratory Tests Test 10/06/18 17:01 10/07/18 05:51 Potassium Level 4.4 3.9 Magnesium Level 1.9 White Blood Count 7.3 Red Blood Count 3.88 L Hemoglobin 11.7 L Hematocrit 35.8 L Mean Corpuscular Volume 92.3 Mean Corpuscular Hemoglobin 30.2 Mean Corpuscular Hemoglobin Concent 32.7 Red Cell Distribution Width 14.7 H Platelet Count 209 Mean Platelet Volume 9.7 Immature Granulocytes % 0.400 Neutrophils % 72.9 Lymphocytes % 14.5 L Monocytes % 7.8 Eosinophils % 3.7 Basophils % 0.7 Nucleated Red Blood Cells % 0.0 Immature Granulocytes # 0.030 Neutrophils # 5.3 Lymphocytes # 1.1 Monocytes # 0.6 Eosinophils # 0.3 Basophils # 0.1 Nucleated Red Blood Cells # 0.0 Sodium Level 140 Chloride Level 105 Carbon Dioxide Level 28 Anion Gap 7 Blood Urea Nitrogen 21 H Creatinine 1.00 Est Glomerular Filtrat Rate mL/min 56 L Glucose Level 141 # Hemoglobin A1c 5.7 Calcium Level 8.7 Thyroid Stimulating Hormone (TSH) 3.440 Medications Medication Current Medications Apixaban (Eliquis) 5 mg BID PO Last administered on 10/07/18at 09:27; Admin Dose 5 MG; Start 10/06/18 at 09:00 IV Flush (NS 3 ml) 3 ml PER PROTOCOL IV ; Start 10/05/18 at 23:00 Ondansetron HCl (Zofran Inj) 4 mg Q6H PRN IV NAUSEA/VOMITING; Start 10/05/18 at 23:00 Acetaminophen (Tylenol Tab) 650 mg Q6H PRN PO .PAIN 1-3 OR TEMP; Start 10/05/18 at 23:00 Acetaminophen (Tylenol Supp) 650 mg Q6H PRN [place] .PAIN 1-3 OR TEMP; Start 10/05/18 at 23:00 Acetaminophen/ Hydrocodone Bitart ([place] (5/325)) 1 tab Q6H PRN PO .MOD PAIN 4- 6 Last administered on 10/07/18at 06:02; Admin Dose 1 TAB; Start 10/05/18 at 23:00 Docusate Sodium (Colace) 100 mg Q12H PRN PO .CONSTIPATION; Start 10/05/18 at 23:00 Magnesium Hydroxide (Milk Of Mag) 30 ml DAILY PRN PO .CONSTIPATION; Start 10/05/18 at 23:00 Bisacodyl (Dulcolax) 5 mg DAILY PRN PO .CONSTIPATION; Start 10/05/18 at 23:00 Ceftriaxone Sodium 50 ml @ 100 mls/hr DAILY IVPB Last administered on 10/07/18at 12:29; Admin Dose 100 MLS/HR; Start 10/06/18 at 09:00 Furosemide (Lasix) 40 mg BID DIURETICS IV Last administered on 10/07/18 05:53; Admin Dose 40 MG; Start 10/06/18 at 18:00; Stop 10/07/18 at 18:01 Albuterol (Proventil 0.083% (Neb)) 1.25 mg Q6H RESP THERAPY HHN Last administered on 10/07/18 13:23; Admin Dose 1.25 MG; Start 10/06/18 at 20:00 Ipratropium [place] (Atrovent 0.02% (Neb)) 0.5 mg Q6H RESP THERAPY HHN Last administered on 10/07/18 13:22; Admin Dose 0.5 MG; Start 10/06/18 at 20:00 Pramipexole (Mirapex) 0.75 mg QHS PO Last administered on 10/06/18 20:29; Admin Dose 0.75 MG; Start 10/06/18 at 21:00 Alprazolam (Xanax) 0.5 mg BID PO Last administered on 10/07/18 09:33; Admin Dose 0.5 MG; Start 10/06/18 at 21:00 Vancomycin HCl (Vanco Iv Per Pharmacy) VANCOMYCIN PER PHARMACY PER PROTOCOL XX ; Start 10/06/18 at 17:30 Famotidine (Pepcid) 20 mg BID PO Last administered on 10/07/18 09:27; Admin Dose 20 MG; Start 10/06/18 at 21:00 Vancomycin HCl 1.25 gm/Sodium Chloride 250 ml @ 83.333 mls/ hr Q12H IVPB Last administered on 10/07/18 09:28; Admin Dose 83.333 MLS/HR; Start 10/06/18 at 20:00 Miscellaneous Information (*Rx Drug Level Order Reminder*) 1 0700 ONCE XX ; Start 10/08/18 at 07:00; Stop 10/08/18 at 07:01 KIRTI LORENZO October 07, 2018 14:13
[2018-10-07] MEDS: PRAMIPEXOLE 0.25 MG TAB PO SCH (21:48)
[2018-10-08] VITALS (11 sets, daily range): BP systolic 102–143; BP diastolic 50–84; PULSE 62–91; RESP 16–18
[2018-10-08] MEDS: HYDROCODONE/APAP (5/325) TAB PO PRN ×2 (01:10→18:16)
[2018-10-08] MEDS: ALBUTEROL 0.083% (NEB) 2.5 MG/3 ML AMP HHN SCH ×4 (01:37→20:22)
[2018-10-08] MEDS: IPRATROPIUM (NEB) 0.5 MG/2.5 ML AMP HHN SCH ×4 (01:37→20:22)
[2018-10-08] MEDS: VANCOMYCIN HCL 1.25 GM in SOD CHLORIDE 0.9% 250 ML IVPB SCH ×2 (08:29→20:26)
[2018-10-08] MEDS: APIXABAN 5 MG TABLET PO SCH ×2 (08:31→20:27)
[2018-10-08] MEDS: FAMOTIDINE 20 MG TAB PO SCH ×2 (08:31→20:27)
[2018-10-08] MEDS: ALPRAZOLAM 0.5 MG TAB PO SCH ×2 (08:31→20:27)
--- NOTE | 2018-10-08 10:48 | PN ---
Date/Time of Note Date/Time of Note DATE: 10/08/18 TIME: 10:44 Assessment/Plan VTE Prophylaxis Risk score (from Ns)>0 risk: 2 SCD applied (from Ns): Yes SCD contraindicated: bilateral LE trauma Pharmacological prophylaxis: apixaban Lines/Catheters IV Catheter Type (from [facility]): Saline Lock Urinary Cath still in place: No Assessment/Plan Hospital Course 1. SOB with acute decompensated congestive heart failure, EF 50% 2. Chronic Atrial fibrillation, controlled 3. History of mitral valve repair 4. Cough, decreased 5. Obesity 6. history of restless legs syndrome, 7. Lymphedema lower extremities mixed etiology pt had vascular surgery on lower extremities, also abdominal liposuction. 8. History of being transgender , ow changed gender, currently on estrogen 9. Keratoacanthoma right leg with cellulitis, s/p biopsy. results are pending 10, S/p tonsillectomy, S.p removal of Tellez's neuroma, 2000, left wrist fracture fixed, 1997, open heart surgery, mitral valve repair 05/2009, full facial reconstruction, facelift, neck lift 03/2013 as far as gender reassignment surgery, 2012, leg veins palliative surgery, 2014, facelift, neck lift, breast augmentation twice, liposuction, and hair transplants. 10. hx of trauma right foot recently 11. Anemia Assessment/Plan -creatinine increased more likely due to Vanco -DVT prop. Eliquiz BID -tele -US lower extremities negative -ID consult Dr Walter seen -c/w Rocephin and Vanco -supp. oxygen -bl. cul negative -fluid restrictions 1 L -c/w breathing treatment -pain meds -GI proph. Famotidine BID - diuretic regimen to twice daily -CT of her chest with no evidence of significant volume overload. Consider possible infectious or primary pulmonary etiology as well -Echocardiogram: Ejection fraction is visually estimated at 50 %. Abnormal Diastolic Function. -Dr Bond cardiology seen -US right lung normal -pt need plastic surgeon consultation right leg for reconstructive surgery outpatient, dr Rodriguez might see her on Tuesday Result Diagram: 10/08/18 0648 10/08/18 0648 Results 24hrs Laboratory Tests Test 10/08/18 06:48 White Blood Count 8.4 Red Blood Count 4.24 Hemoglobin 12.7 Hematocrit 39.3 Mean Corpuscular Volume 92.7 Mean Corpuscular Hemoglobin 30.0 Mean Corpuscular Hemoglobin Concent 32.3 Red Cell Distribution Width 14.5 Platelet Count 238 Mean Platelet Volume 9.4 Immature Granulocytes % 0.500 H Neutrophils % 70.0 Lymphocytes % 17.1 Monocytes % 7.5 Eosinophils % 4.2 Basophils % 0.7 Nucleated Red Blood Cells % 0.0 Immature Granulocytes # 0.040 H Neutrophils # 5.9 Lymphocytes # 1.4 Monocytes # 0.6 Eosinophils # 0.4 Basophils # 0.1 Nucleated Red Blood Cells # 0.0 Sodium Level 138 Potassium Level 4.2 Chloride Level 103 Carbon Dioxide Level 28 Anion Gap 7 Blood Urea Nitrogen 20 Creatinine 1.01 H Est Glomerular Filtrat Rate mL/min 56 L Glucose Level 118 Calcium Level 8.8 Phosphorus Level 4.1 Magnesium Level 2.0 Vancomycin Level Trough 14.6 Subjective 24 Hr Interval Summary Respiratory: shortness of breath Skin: skin lesions (right leg) Exam/Review of Systems Exam Vitals Vital Signs Date Temp Pulse Resp B/P (MAP) Pulse Ox O2 O2 Flow FiO2 Time Delivery Rate 10/08/18 Nasal 2.0 09:54 Cannula 10/08/18 79 08:55 10/08/18 97.4 16 143/81 99 07:26 (101) 10/05/18 21 19:09 Intake and Output 10/07/18 10/07/18 10/08/18 1515:00 23:00 07:00 IntakeIntake Total 1250 ml 250 ml BalanceBalance 1250 ml 250 ml Constitutional: alert, oriented Psych: depression Neck: supple Respiratory: clear to auscultation Cardiovascular: regular rate and rhythm Gastrointestinal: soft Musculoskeletal: muscle weakness, swelling Results Results 24hrs Laboratory Tests Test 10/08/18 06:48 White Blood Count 8.4 Red Blood Count 4.24 Hemoglobin 12.7 Hematocrit 39.3 Mean Corpuscular Volume 92.7 Mean Corpuscular Hemoglobin 30.0 Mean Corpuscular Hemoglobin Concent 32.3 Red Cell Distribution Width 14.5 Platelet Count 238 Mean Platelet Volume 9.4 Immature Granulocytes % 0.500 H Neutrophils % 70.0 Lymphocytes % 17.1 Monocytes % 7.5 Eosinophils % 4.2 Basophils % 0.7 Nucleated Red Blood Cells % 0.0 Immature Granulocytes # 0.040 H Neutrophils # 5.9 Lymphocytes # 1.4 Monocytes # 0.6 Eosinophils # 0.4 Basophils # 0.1 Nucleated Red Blood Cells # 0.0 Sodium Level 138 Potassium Level 4.2 Chloride Level 103 Carbon Dioxide Level 28 Anion Gap 7 Blood Urea Nitrogen 20 Creatinine 1.01 H Est Glomerular Filtrat Rate mL/min 56 L Glucose Level 118 Calcium Level 8.8 Phosphorus Level 4.1 Magnesium Level 2.0 Vancomycin Level Trough 14.6 Medications Medication Current Medications Apixaban (Eliquis) 5 mg BID PO Last administered on 10/08/18at 08:31; Admin Dose 5 MG; Start 10/06/18 at 09:00 IV Flush (NS 3 ml) 3 ml PER PROTOCOL IV ; Start 10/05/18 at 23:00 Ondansetron HCl (Zofran Inj) 4 mg Q6H PRN IV NAUSEA/VOMITING; Start 10/05/18 at 23:00 Acetaminophen (Tylenol Tab) 650 mg Q6H PRN PO .PAIN 1-3 OR TEMP; Start 10/05/18 at 23:00 Acetaminophen (Tylenol Supp) 650 mg Q6H PRN [place] .PAIN 1-3 OR TEMP; Start 10/05/18 at 23:00 Docusate Sodium (Colace) 100 mg Q12H PRN PO .CONSTIPATION; Start 10/05/18 at 23:00 Magnesium Hydroxide (Milk Of Mag) 30 ml DAILY PRN PO .CONSTIPATION; Start 10/05/18 at 23:00 Bisacodyl (Dulcolax) 5 mg DAILY PRN PO .CONSTIPATION; Start 10/05/18 at 23:00 Ceftriaxone Sodium 50 ml @ 100 mls/hr DAILY IVPB Last administered on 10/07/18at 12:29; Admin Dose 100 MLS/HR; Start 10/06/18 at 09:00 Albuterol (Proventil 0.083% (Neb)) 1.25 mg Q6H RESP THERAPY HHN Last administered on 10/08/18at 09:11; Admin Dose 1.25 MG; Start 10/06/18 at 20:00 Ipratropium [place] (Atrovent 0.02% (Neb)) 0.5 mg Q6H RESP THERAPY HHN Last administered on 10/08/18at 09:10; Admin Dose 0.5 MG; Start 10/06/18 at 20:00 Pramipexole (Mirapex) 0.75 mg QHS PO Last administered on 10/07/18at 21:48; Admin Dose 0.75 MG; Start 10/06/18 at 21:00 Alprazolam (Xanax) 0.5 mg BID PO Last administered on 10/08/18 08:31; Admin Dose 0.5 MG; Start 10/06/18 at 21:00 Vancomycin HCl (Vanco Iv Per Pharmacy) VANCOMYCIN PER PHARMACY PER PROTOCOL XX ; Start 10/06/18 at 17:30 Famotidine (Pepcid) 20 mg BID PO Last administered on 10/08/18at 08:31; Admin Dose 20 MG; Start 10/06/18 at 21:00 Vancomycin HCl 1.25 gm/Sodium Chloride 250 ml @ 83.333 mls/ hr Q12H IVPB Last administered on 10/08/18at 08:29; Admin Dose 83.333 MLS/HR; Start 10/06/18 at 20:00 Acetaminophen/ Hydrocodone Bitart ([place] (5/325)) 1 tab Q4H PRN PO PAIN LEVEL 7-10 Last administered on 10/08/18at 01:10; Admin Dose 1 TAB; Start 10/07/18 at 21:30 KIRTI LORENZO October 08, 2018 10:48
--- NOTE | 2018-10-08 12:23 | CONS ---
Assessment/Plan Assessment/Plan Hospital Course (Demo Recall) ID PROGRESS NOTE CURRENT ABX: DAY # 3-> Vanco IV + Ceftriaxone 24H INTERVAL SUMMARY * Clinically stable -- Awake, alert, polite -- BLEXT pain issues ongoing -No fevers/chills, VSS, labs, chart reviewed * Leg wound cx and MRSA Nares cx pending * Leg wound COVERED WITH FOAM DRESSING- pending plastic surgery can be done as OP * (-)BLEXT DVT, (-) Upper ext DVT DIAGNOSTIC IMAGING * 10/06/18 CXT US: No pleural fluid on either side * 10/05/2018 CT Chest: IMPRESSION: * 1. No CT evidence of pulmonary embolus. * 2. No CT evidence of aortic dissection or aneurysm. * 3. Extensive chronic abnormalities of the right chest including volume loss, pleural thickening, and parenchymal mass-like infiltrates, most likely stable since 09/25/2017. * 10/05/18 CXR:1. Redemonstration of right-sided pleural effusion with infiltrates in the right lower lobe, suggestive of airspace disease. These findings are stable compared to 09/25/2017, however superimposed airspace disease is not excluded. * 10/06/18 2D ECHO: Conclusions: * Lower limits of normal systolic function. Left ventricular wall thickness upper limits of normal. Mild enlargement of left ventricle cavity. Ejection fraction is visually estimated at 50 %. Abnormal Diastolic Function. * Normal right ventricular size. Normal right ventricular systolic function. * There is severe enlargement of left atrium. * The right atrium is normal in size. * Mitral valve repair. Mild mitral leaflet calcification. Trace mitral regurgitation. * No hemodynamically significant aortic stenosis by doppler. * Estimated peak PA systolic pressure 32 mmHg. There is mild tricuspid regurgitation. * Normal pericardium with no significant pericardial effusion. MICRO/OTHER * 10/05/18 URINE CULTURE Preliminary Organism 1 MIXED GRAM POSITIVE ORGANISMS COLONY COUNT <10,000 CFU/ml * 10/05/18 BCX (-) PHYSICAL EXAMINATION: GENERAL: VSS HEENT: AT, NC, anicteric NECK: Supple, CHEST: Equal chest rise bilaterally, without dyspnea on observation HEART: Pulse RRR ABDOMEN: Soft / NT EXTREMITIES: Warm, BLEXT lymphedema w/erythema and induration * -- See photos RLEXT 2 x 2 area with an irregular shaped lesion,open wound clean wound bed SKIN: No rash, no diaphoresis ID ASSESSMENT 63 yo obese F TNS-Gender on Estrogen replacement Tx admit with: 1. Acute decompensated congestive heart failure, EF 50% w/Diastolic dysfx on ECHO * Atrial fibrillation w/LAE contributing to fluid overload * History of mitral valve repair * BNP 1330 on admission w/cough 2. Acute on chronic BLEXT Lymphedema lower extremities mixed etiology pt had vascular surgery on lower extremities, also abdominal liposuction. * Fluid overloaded state * Venous insufficiency -> venous HTN due to obesity 3. RLEXT cellulitis w/ open wound * Keratoacanthoma right leg with cellulitis, s/p biopsy. results are pending 4. hx of trauma right foot recently 5. COPD suspected w/ exacerbation -- (+)Cough * CT chest & Chest US show clear lungs * Long-term tobacco history suspect emphysema (+/-) mixed COPD 6. Prothrombotic state - Afib, Estrogen Tx, obesity, lymphedema 7. Bacteriuria vs contaminated urine sample -> Insignificant * 10/05/18 URINE CULTURE Preliminary Organism 1 MIXED GRAM POSITIVE ORGANISMS COLONY COUNT <10,000 CFU/ml ABX ALLERGIES: NKDA INVASIVES: PIV CURRENT ABX: DAY #3-> Vanco IV + Ceftriaxone ID RECOMMENDATIONS/PLAN: 1. Continue Vanco IV and Ceftriaxone = if wound cx (-) consider DC ABX vs change to PO Doxy/Keflex and DC home to OP plastic surgery f/u 2. Swab nares for MRSA screening and obtain open wound cx . Consultation Date/Type/Reason Admit Date/Time October 05, 2018 at 19:04 Initial Consult Date Date/Time of Note DATE: 10/08/18 TIME: 12:20 Exam/Review of Systems Exam Vitals Vital Signs Date Temp Pulse Resp B/P (MAP) Pulse Ox O2 O2 Flow FiO2 Time Delivery Rate 10/08/18 97.6 82 16 110/64 98 11:27 (79) 10/08/18 Nasal 2.0 09:54 Cannula 10/05/18 21 19:09 Intake and Output 10/07/18 10/07/18 10/08/18 1515:00 23:00 07:00 IntakeIntake Total 1250 ml 250 ml BalanceBalance 1250 ml 250 ml Results Result Diagram: 5/12/19 0648 10/08/18 0648 Results 24hrs Laboratory Tests Test 10/08/18 06:48 White Blood Count 8.4 Red Blood Count 4.24 Hemoglobin 12.7 Hematocrit 39.3 Mean Corpuscular Volume 92.7 Mean Corpuscular Hemoglobin 30.0 Mean Corpuscular Hemoglobin Concent 32.3 Red Cell Distribution Width 14.5 Platelet Count 238 Mean Platelet Volume 9.4 Immature Granulocytes % 0.500 H Neutrophils % 70.0 Lymphocytes % 17.1 Monocytes % 7.5 Eosinophils % 4.2 Basophils % 0.7 Nucleated Red Blood Cells % 0.0 Immature Granulocytes # 0.040 H Neutrophils # 5.9 Lymphocytes # 1.4 Monocytes # 0.6 Eosinophils # 0.4 Basophils # 0.1 Nucleated Red Blood Cells # 0.0 Sodium Level 138 Potassium Level 4.2 Chloride Level 103 Carbon Dioxide Level 28 Anion Gap 7 Blood Urea Nitrogen 20 Creatinine 1.01 H Est Glomerular Filtrat Rate mL/min 56 L Glucose Level 118 Calcium Level 8.8 Phosphorus Level 4.1 Magnesium Level 2.0 Vancomycin Level Trough 14.6 Medications Medication Current Medications Apixaban (Eliquis) 5 mg BID PO Last administered on 10/08/18at 08:31; Admin Dose 5 MG; Start 10/06/18 at 09:00 IV Flush (NS 3 ml) 3 ml PER PROTOCOL IV ; Start 10/05/18 at 23:00 Ondansetron HCl (Zofran Inj) 4 mg Q6H PRN IV NAUSEA/VOMITING; Start 10/05/18 at 23:00 Acetaminophen (Tylenol Tab) 650 mg Q6H PRN PO .PAIN 1-3 OR TEMP; Start 10/05/18 at 23:00 Acetaminophen (Tylenol Supp) 650 mg Q6H PRN [place] .PAIN 1-3 OR TEMP; Start 10/05/18 at 23:00 Docusate Sodium (Colace) 100 mg Q12H PRN PO .CONSTIPATION; Start 10/05/18 at 23:00 Magnesium Hydroxide (Milk Of Mag) 30 ml DAILY PRN PO .CONSTIPATION; Start 10/05/18 at 23:00 Bisacodyl (Dulcolax) 5 mg DAILY PRN PO .CONSTIPATION; Start 10/05/18 at 23:00 Ceftriaxone Sodium 50 ml @ 100 mls/hr DAILY IVPB Last administered on 10/07/18 12:29; Admin Dose 100 MLS/HR; Start 10/06/18 at 09:00 Albuterol (Proventil 0.083% (Neb)) 1.25 mg Q6H RESP THERAPY HHN Last administered on 10/08/18 09:11; Admin Dose 1.25 MG; Start 10/06/18 at 20:00 Ipratropium [place] (Atrovent 0.02% (Neb)) 0.5 mg Q6H RESP THERAPY HHN Last administered on 10/08/18 09:10; Admin Dose 0.5 MG; Start 10/06/18 at 20:00 Pramipexole (Mirapex) 0.75 mg QHS PO Last administered on 10/07/18 21:48; Admin Dose 0.75 MG; Start 10/06/18 at 21:00 Alprazolam (Xanax) 0.5 mg BID PO Last administered on 10/08/18 08:31; Admin Dose 0.5 MG; Start 10/06/18 at 21:00 Vancomycin HCl (Vanco Iv Per Pharmacy) VANCOMYCIN PER PHARMACY PER PROTOCOL XX ; Start 10/06/18 at 17:30 Famotidine (Pepcid) 20 mg BID PO Last administered on 10/08/18 08:31; Admin Dose 20 MG; Start 10/06/18 at 21:00 Vancomycin HCl 1.25 gm/Sodium Chloride 250 ml @ 83.333 mls/ hr Q12H IVPB Last administered on 10/08/18 08:29; Admin Dose 83.333 MLS/HR; Start 10/06/18 at 20:00 Acetaminophen/ Hydrocodone Bitart ([place] (5/325)) 1 tab Q4H PRN PO PAIN LEVEL 7-10 Last administered on 10/08/18 01:10; Admin Dose 1 TAB; Start 10/07/18 at 21:30 DUDLEY ARREDONDO NP October 08, 2018 12:23
[2018-10-08] MEDS: CEFTRIAXONE 1 GM/50 ML (PMX) 50 ML IVPB SCH (12:53)
--- NOTE | 2018-10-08 12:58 | CONS ---
Consult Date/Type/Reason Admit Date/Time October 05, 2018 at 19:04 Initial Consult Date Type of Consultation: cv Reason for Consultation cardiology follow up note S: Discussed with the staff and telemetry was reviewed patient remains in atrial fibrillation heart rate is under control now but last night was tachycardic She is still complain of shortness of breath but better today No chest pain or pressure No bleeding Objective:' General: no acute distress HEENT: NC/AT. pupils are equal. round. NECK: no stridor. CV irregularly irregular. systolic murmur; no gallop or rubs. PULM: Mild wheezing / rhonchi. GI: SOFT, NT, ND, no rebound or guarding Extremity: trace B/L LE edema. no clubbing. neuro: awake and alert, OX3. Psych: Anxious but pleasant rectal: deferred Date/Time of Note DATE: 10/08/18 TIME: 12:57 Objective Vitals Vital Signs Date Temp Pulse Resp B/P (MAP) Pulse Ox O2 O2 Flow FiO2 Time Delivery Rate 10/08/18 82 12:30 10/08/18 97.6 16 110/64 98 11:27 (79) 10/08/18 Nasal 2.0 09:54 Cannula 10/05/18 21 19:09 Intake and Output 10/07/18 10/07/18 10/08/18 1515:00 23:00 07:00 IntakeIntake Total 1250 ml 250 ml BalanceBalance 1250 ml 250 ml Results/Medications Result Diagram: 10/08/18 0648 10/08/18 0648 Results 24 hrs Laboratory Tests Test 10/08/18 06:48 White Blood Count 8.4 Red Blood Count 4.24 Hemoglobin 12.7 Hematocrit 39.3 Mean Corpuscular Volume 92.7 Mean Corpuscular Hemoglobin 30.0 Mean Corpuscular Hemoglobin Concent 32.3 Red Cell Distribution Width 14.5 Platelet Count 238 Mean Platelet Volume 9.4 Immature Granulocytes % 0.500 H Neutrophils % 70.0 Lymphocytes % 17.1 Monocytes % 7.5 Eosinophils % 4.2 Basophils % 0.7 Nucleated Red Blood Cells % 0.0 Immature Granulocytes # 0.040 H Neutrophils # 5.9 Lymphocytes # 1.4 Monocytes # 0.6 Eosinophils # 0.4 Basophils # 0.1 Nucleated Red Blood Cells # 0.0 Sodium Level 138 Potassium Level 4.2 Chloride Level 103 Carbon Dioxide Level 28 Anion Gap 7 Blood Urea Nitrogen 20 Creatinine 1.01 H Est Glomerular Filtrat Rate mL/min 56 L Glucose Level 118 Calcium Level 8.8 Phosphorus Level 4.1 Magnesium Level 2.0 Vancomycin Level Trough 14.6 Home Meds Reported Medications Estradiol (Estradiol) 1 Each Patch.tdwk, 1 EACH TD Q7D 10/05/18 Torsemide (Torsemide) 20 Mg Tablet, 20 MG PO DAILY, TAB 10/05/18 Pramipexole* (Pramipexole*) 0.25 Mg Tablet, 0.25 MG PO TID, TAB 10/05/18 Apixaban* (Eliquis*) 5 Mg Tablet, 5 MG PO BID, TAB 10/05/18 Medications Current Medications Apixaban (Eliquis) 5 mg BID PO Last administered on 10/08/18at 08:31; Admin Dose 5 MG; Start 10/06/18 at 09:00 IV Flush (NS 3 ml) 3 ml PER PROTOCOL IV ; Start 10/05/18 at 23:00 Ondansetron HCl (Zofran Inj) 4 mg Q6H PRN IV NAUSEA/VOMITING; Start 10/05/18 at 23:00 Acetaminophen (Tylenol Tab) 650 mg Q6H PRN PO .PAIN 1-3 OR TEMP; Start 10/05/18 at 23:00 Acetaminophen (Tylenol Supp) 650 mg Q6H PRN [place] .PAIN 1-3 OR TEMP; Start 10/05/18 at 23:00 Docusate Sodium (Colace) 100 mg Q12H PRN PO .CONSTIPATION; Start 10/05/18 at 23:00 Magnesium Hydroxide (Milk Of Mag) 30 ml DAILY PRN PO .CONSTIPATION; Start 10/05/18 at 23:00 Bisacodyl (Dulcolax) 5 mg DAILY PRN PO .CONSTIPATION; Start 10/05/18 at 23:00 Ceftriaxone Sodium 50 ml @ 100 mls/hr DAILY IVPB Last administered on 10/08/18at 12:53; Admin Dose 100 MLS/HR; Start 10/06/18 at 09:00 Albuterol (Proventil 0.083% (Neb)) 1.25 mg Q6H RESP THERAPY HHN Last administered on 10/08/18at 09:11; Admin Dose 1.25 MG; Start 10/06/18 at 20:00 Ipratropium [place] (Atrovent 0.02% (Neb)) 0.5 mg Q6H RESP THERAPY HHN Last administered on 10/08/18 09:10; Admin Dose 0.5 MG; Start 10/06/18 at 20:00 Pramipexole (Mirapex) 0.75 mg QHS PO Last administered on 10/07/18 21:48; Admin Dose 0.75 MG; Start 10/06/18 at 21:00 Alprazolam (Xanax) 0.5 mg BID PO Last administered on 10/08/18 08:31; Admin Dose 0.5 MG; Start 10/06/18 at 21:00 Vancomycin HCl (Vanco Iv Per Pharmacy) VANCOMYCIN PER PHARMACY PER PROTOCOL XX ; Start 10/06/18 at 17:30 Famotidine (Pepcid) 20 mg BID PO Last administered on 10/08/18 08:31; Admin Dose 20 MG; Start 10/06/18 at 21:00 Vancomycin HCl 1.25 gm/Sodium Chloride 250 ml @ 83.333 mls/ hr Q12H IVPB Last administered on 10/08/18 08:29; Admin Dose 83.333 MLS/HR; Start 10/06/18 at 20:00 Acetaminophen/ Hydrocodone Bitart ([place] (5/325)) 1 tab Q4H PRN PO PAIN LEVEL 7-10 Last administered on 10/08/18 01:10; Admin Dose 1 TAB; Start 10/07/18 at 21:30 Assessment/Plan Hospital Course (Demo Recall) Dyspnea: Multifactorial partially related to CHF but appears to be also at least partially related to her pulmonary disease History of asthma as a child Status mitral valve repair Atrial fibrillation ANEMIA ANXIETY REC cont anticoagulation HR is stable cont lasix for now consider pulm consultations thank you. I will follow along with you until Dr. Mcfarland returns on Tuesday GALEN ARMENTA,GALEN BA October 08, 2018 12:58
[2018-10-08] MEDS: PRAMIPEXOLE 0.25 MG TAB PO SCH (20:27)
[2018-10-09] VITALS (12 sets, daily range): BP systolic 100–141; BP diastolic 62–79; PULSE 56–83; RESP 16–20
[2018-10-09] MEDS: IPRATROPIUM (NEB) 0.5 MG/2.5 ML AMP HHN SCH ×4 (01:09→21:05)
[2018-10-09] MEDS: ALBUTEROL 0.083% (NEB) 2.5 MG/3 ML AMP HHN SCH ×4 (01:09→21:04)
[2018-10-09] MEDS: FAMOTIDINE 20 MG TAB PO SCH ×2 (09:01→21:20)
[2018-10-09] MEDS: APIXABAN 5 MG TABLET PO SCH ×2 (09:01→21:21)
[2018-10-09] MEDS: ALPRAZOLAM 0.5 MG TAB PO SCH ×2 (09:01→21:20)
[2018-10-09] MEDS: VANCOMYCIN HCL 1.25 GM in SOD CHLORIDE 0.9% 250 ML IVPB SCH ×2 (09:02→21:20)
[2018-10-09] MEDS: CEFTRIAXONE 1 GM/50 ML (PMX) 50 ML IVPB SCH (09:04)
[2018-10-09] MEDS: HYDROCODONE/APAP (5/325) TAB PO PRN ×3 (09:08→21:21)
--- NOTE | 2018-10-09 12:37 | CONS ---
Assessment/Plan Cardiology NYHA: II Heart Failure Type: Acute Heart Failure Type: Both Assessment/Plan Hospital Course (Demo Recall) Acute decompensated systolic/diastolic congestive heart failure Cardiomyopathy with left ventricular ejection fraction 50% Atrial fibrillation History of mitral valve repair -Patient shortness of breath has continued to improve as well as lower extremity edema. -Patient's diuretics have been stopped for unclear reason, if no contraindication, would restart. BMP was initially elevated, has been trending down -Lower extremity edema likely multifactorial including an element of volume overload as well as possibly lymphedema versus venous insufficiency. Her legs are less tense after diuretics -Continue anticoagulation as tolerated Consultation Date/Type/Reason Admit Date/Time October 05, 2018 at 19:04 Initial Consult Date Type of Consult Cardiology Date/Time of Note DATE: 10/09/18 TIME: 12:34 24 HR Interval Summary Free Text/Dictation Feeling better, denies shortness of breath. Lower examinee swelling has improved Exam/Review of Systems Vital Signs Vitals Vital Signs Date Temp Pulse Resp B/P (MAP) Pulse Ox O2 O2 Flow FiO2 Time Delivery Rate 10/09/18 97.8 67 16 130/79 98 11:21 (96) 10/09/18 21 07:46 10/09/18 Nasal 2.0 01:10 Cannula Intake and Output 10/08/18 10/08/18 10/09/18 1414:59 22:59 06:59 IntakeIntake Total 250 ml 850 ml 450 ml BalanceBalance 250 ml 850 ml 450 ml Exam Constitutional: alert, oriented (No apparent distress) Head: normocephalic Respiratory: other (Coarse breath sounds bilaterally, no wheezing) Cardiovascular: irregular rhythm (S1-S2 heard) Gastrointestinal: soft, non-tender, bowel sounds Extremities: edema Labs Result Diagram: 10/09/18 0940 10/09/18 0940 Results 24hrs Laboratory Tests Test 10/09/18 09:40 White Blood Count 8.3 Red Blood Count 4.12 L Hemoglobin 12.3 Hematocrit 38.4 Mean Corpuscular Volume 93.2 Mean Corpuscular Hemoglobin 29.9 Mean Corpuscular Hemoglobin Concent 32.0 Red Cell Distribution Width 14.5 Platelet Count 238 Mean Platelet Volume 9.5 Immature Granulocytes % 0.600 H Neutrophils % 73.5 Lymphocytes % 12.2 L Monocytes % 9.2 Eosinophils % 4.0 Basophils % 0.5 Nucleated Red Blood Cells % 0.0 Immature Granulocytes # 0.050 H Neutrophils # 6.1 Lymphocytes # 1.0 Monocytes # 0.8 Eosinophils # 0.3 Basophils # 0.0 Nucleated Red Blood Cells # 0.0 Sodium Level 140 Potassium Level 4.5 Chloride Level 106 Carbon Dioxide Level 27 Anion Gap 7 Blood Urea Nitrogen 21 H Creatinine 0.87 Est Glomerular Filtrat Rate mL/min > 60 Glucose Level 104 Calcium Level 9.1 Magnesium Level 2.1 Total Bilirubin 0.4 Direct Bilirubin 0.00 Indirect Bilirubin 0.4 Aspartate Amino Transf (AST/SGOT) 32 Alanine Aminotransferase (ALT/SGPT) 18 Alkaline Phosphatase 103 B-Type Natriuretic Peptide 531 H Total Protein 7.5 Albumin 3.8 Globulin 3.70 H Albumin/Globulin Ratio 1.02 Medications Medications Current Medications Apixaban (Eliquis) 5 mg BID PO Last administered on 10/09/18at 09:01; Admin Dose 5 MG; Start 10/06/18 at 09:00 IV Flush (NS 3 ml) 3 ml PER PROTOCOL IV ; Start 10/05/18 at 23:00 Ondansetron HCl (Zofran Inj) 4 mg Q6H PRN IV NAUSEA/VOMITING; Start 10/05/18 at 23:00 Acetaminophen (Tylenol Tab) 650 mg Q6H PRN PO .PAIN 1-3 OR TEMP; Start 10/05/18 at 23:00 Acetaminophen (Tylenol Supp) 650 mg Q6H PRN [place] .PAIN 1-3 OR TEMP; Start 10/05/18 at 23:00 Docusate Sodium (Colace) 100 mg Q12H PRN PO .CONSTIPATION; Start 10/05/18 at 23:00 Magnesium Hydroxide (Milk Of Mag) 30 ml DAILY PRN PO .CONSTIPATION; Start 10/05/18 at 23:00 Bisacodyl (Dulcolax) 5 mg DAILY PRN PO .CONSTIPATION; Start 10/05/18 at 23:00 Ceftriaxone Sodium 50 ml @ 100 mls/hr DAILY IVPB Last administered on 10/09/18at 09:04; Admin Dose 100 MLS/HR; Start 10/06/18 at 09:00 Albuterol (Proventil 0.083% (Neb)) 1.25 mg Q6H RESP THERAPY HHN Last administered on 10/09/18at 07:45; Admin Dose 1.25 MG; Start 10/06/18 at 20:00 Ipratropium [place] (Atrovent 0.02% (Neb)) 0.5 mg Q6H RESP THERAPY HHN Last administered on 10/09/18 07:45; Admin Dose 0.5 MG; Start 10/06/18 at 20:00 Pramipexole (Mirapex) 0.75 mg QHS PO Last administered on 10/08/18 20:27; Admin Dose 0.75 MG; Start 10/06/18 at 21:00 Alprazolam (Xanax) 0.5 mg BID PO Last administered on 10/09/18 09:01; Admin Dose 0.5 MG; Start 10/06/18 at 21:00 Vancomycin HCl (Vanco Iv Per Pharmacy) VANCOMYCIN PER PHARMACY PER PROTOCOL XX ; Start 10/06/18 at 17:30 Famotidine (Pepcid) 20 mg BID PO Last administered on 10/09/18 09:01; Admin Dose 20 MG; Start 10/06/18 at 21:00 Vancomycin HCl 1.25 gm/Sodium Chloride 250 ml @ 83.333 mls/ hr Q12H IVPB Last administered on 10/09/18 09:02; Admin Dose 83.333 MLS/HR; Start 10/06/18 at 20:00 Acetaminophen/ Hydrocodone Bitart ([place] (5/325)) 1 tab Q4H PRN PO PAIN LEVEL 7-10 Last administered on 10/09/18 09:08; Admin Dose 1 TAB; Start 10/07/18 at 21:30 Juvenal Bond DO October 09, 2018 12:37
--- NOTE | 2018-10-09 13:53 | PN ---
Date/Time of Note Date/Time of Note DATE: 10/09/18 TIME: 13:49 Assessment/Plan VTE Prophylaxis Risk score (from Ns)>0 risk: 4 SCD applied (from Ns): Yes Pharmacological prophylaxis: NA/contraindicated Pharm contraindication: low risk/ambulating Lines/Catheters IV [facility]ter Type [facility]from [facility] [place] Urinary Cath still in place: No Assessment/Plan Assessment/Plan ospital Course 1. SOB with acute decompensated congestive heart failure, EF 50%, CT chest Exte nsive chronic abnormalities of the right chest including volume loss, pleural thickening, and parenchymal mass-like infiltrates, most likely stable since 09/25/2017, She was seen in the past for this and was told that it has been shrinking and patient had refused biopsy in the past, this was probably done in [place] 2. Chronic Atrial fibrillation, controlled 3. History of mitral valve repair 4. Cough, decreased 5. Obesity 6. history of restless legs syndrome, 7. BLE edema likely secondary to CHF vs Lymphedema lower extremities mixed etiology pt had vascular surgery on lower extremities, also abdominal liposuction. Since patient is on estradiol due to transgender change 8. History of being transgender , ow changed gender, currently on estrogen 9. Keratoacanthoma right leg with cellulitis, s/p biopsy. results are pending 10, S/p tonsillectomy, S.p removal of Tellez's neuroma, 2000, left wrist fracture fixed, 1997, open heart surgery, mitral valve repair 05/2009, full facial reconstruction, facelift, neck lift 03/2013 as far as gender reassignment surgery, 2012, leg veins palliative surgery, 2014, facelift, neck lift, breast augmentation twice, liposuction, and hair transplants. 10. hx of trauma right foot recently 11. Anemia Assessment/Plan - restart lasix dont know why discontinued, fluid restriction, daily weight -CT scan of the abdomen and pelvis to check for lymph nodes -c/w Rocephin and Vanco -Treated with Eliquis -supp. oxygen -bl. cul negative -fluid restrictions 1 L -c/w breathing treatment -CT of her chest with no evidence of significant volume overload. Consider possible infectious or primary pulmonary etiology as well -Echocardiogram: Ejection fraction is visually estimated at 50 %. Abnormal D iastolic Function. -Dr Bond cardiology seen -pt need plastic surgeon consultation right leg for reconstructive surgery outpatient, dr Rodriguez might see her on Tuesday Result Diagram: 10/09/1840 10/09/18 0940 Results 24hrs Laboratory Tests Test 10/09/18 09:40 White Blood Count 8.3 Red Blood Count 4.12 L Hemoglobin 12.3 Hematocrit 38.4 Mean Corpuscular Volume 93.2 Mean Corpuscular Hemoglobin 29.9 Mean Corpuscular Hemoglobin Concent 32.0 Red Cell Distribution Width 14.5 Platelet Count 238 Mean Platelet Volume 9.5 Immature Granulocytes % 0.600 H Neutrophils % 73.5 Lymphocytes % 12.2 L Monocytes % 9.2 Eosinophils % 4.0 Basophils % 0.5 Nucleated Red Blood Cells % 0.0 Immature Granulocytes # 0.050 H Neutrophils # 6.1 Lymphocytes # 1.0 Monocytes # 0.8 Eosinophils # 0.3 Basophils # 0.0 Nucleated Red Blood Cells # 0.0 Sodium Level 140 Potassium Level 4.5 Chloride Level 106 Carbon Dioxide Level 27 Anion Gap 7 Blood Urea Nitrogen 21 H Creatinine 0.87 Est Glomerular Filtrat Rate mL/min > 60 Glucose Level 104 Calcium Level 9.1 Magnesium Level 2.1 Total Bilirubin 0.4 Direct Bilirubin 0.00 Indirect Bilirubin 0.4 Aspartate Amino Transf (AST/SGOT) 32 Alanine Aminotransferase (ALT/SGPT) 18 Alkaline Phosphatase 103 B-Type Natriuretic Peptide 531 H Total Protein 7.5 Albumin 3.8 Globulin 3.70 H Albumin/Globulin Ratio 1.02 Subjective 24 Hr Interval Summary Free Text/Dictation Feels The swelling is slightly better still sob at times Exam/Review of Systems Exam Vitals Vital Signs Date Temp Pulse Resp B/P (MAP) Pulse Ox O2 O2 Flow FiO2 Time Delivery Rate 10/09/18 74 18 95 21 13:12 10/09/18 97.8 130/79 11:21 (96) 10/09/18 Nasal 2.0 01:10 Cannula Intake and Output 10/08/18 10/08/18 10/09/18 1414:59 22:59 06:59 IntakeIntake Total 250 ml 850 ml 450 ml BalanceBalance 250 ml 850 ml 450 ml Exam onstitutional: alert, oriented Psych: depression Neck: supple Respiratory: deCreased breath sounds at the bases Cardiovascular: regular rate and rhythm Gastrointestinal: soft Musculoskeletal: ble swelling++, thickening of the skin present at the ankles Results Results 24hrs Laboratory Tests Test 10/09/18 09:40 White Blood Count 8.3 Red Blood Count 4.12 L Hemoglobin 12.3 Hematocrit 38.4 Mean Corpuscular Volume 93.2 Mean Corpuscular Hemoglobin 29.9 Mean Corpuscular Hemoglobin Concent 32.0 Red Cell Distribution Width 14.5 Platelet Count 238 Mean Platelet Volume 9.5 Immature Granulocytes % 0.600 H Neutrophils % 73.5 Lymphocytes % 12.2 L Monocytes % 9.2 Eosinophils % 4.0 Basophils % 0.5 Nucleated Red Blood Cells % 0.0 Immature Granulocytes # 0.050 H Neutrophils # 6.1 Lymphocytes # 1.0 Monocytes # 0.8 Eosinophils # 0.3 Basophils # 0.0 Nucleated Red Blood Cells # 0.0 Sodium Level 140 Potassium Level 4.5 Chloride Level 106 Carbon Dioxide Level 27 Anion Gap 7 Blood Urea Nitrogen 21 H Creatinine 0.87 Est Glomerular Filtrat Rate mL/min > 60 Glucose Level 104 Calcium Level 9.1 Magnesium Level 2.1 Total Bilirubin 0.4 Direct Bilirubin 0.00 Indirect Bilirubin 0.4 Aspartate Amino Transf (AST/SGOT) 32 Alanine Aminotransferase (ALT/SGPT) 18 Alkaline Phosphatase 103 B-Type Natriuretic Peptide 531 H Total Protein 7.5 Albumin 3.8 Globulin 3.70 H Albumin/Globulin Ratio 1.02 Medications Medication Current Medications Apixaban (Eliquis) 5 mg BID PO Last administered on 10/09/18at 09:01; Admin Dose 5 MG; Start 10/06/18 at 09:00 IV Flush (NS 3 ml) 3 ml PER PROTOCOL IV ; Start 10/05/18 at 23:00 Ondansetron HCl (Zofran Inj) 4 mg Q6H PRN IV NAUSEA/VOMITING; Start 10/05/18 at 23:00 Acetaminophen (Tylenol Tab) 650 mg Q6H PRN PO .PAIN 1-3 OR TEMP; Start 10/05/18 at 23:00 Acetaminophen (Tylenol Supp) 650 mg Q6H PRN [place] .PAIN 1-3 OR TEMP; Start 10/05/18 at 23:00 Docusate Sodium (Colace) 100 mg Q12H PRN PO .CONSTIPATION; Start 10/05/18 at 23:00 Magnesium Hydroxide (Milk Of Mag) 30 ml DAILY PRN PO .CONSTIPATION; Start 10/05/18 at 23:00 Bisacodyl (Dulcolax) 5 mg DAILY PRN PO .CONSTIPATION; Start 10/05/18 at 23:00 Ceftriaxone Sodium 50 ml @ 100 mls/hr DAILY IVPB Last administered on 10/09/18 09:04; Admin Dose 100 MLS/HR; Start 10/06/18 at 09:00 Albuterol (Proventil 0.083% (Neb)) 1.25 mg Q6H RESP THERAPY HHN Last administered on 10/09/18 13:11; Admin Dose 1.25 MG; Start 10/06/18 at 20:00 Ipratropium [place] (Atrovent 0.02% (Neb)) 0.5 mg Q6H RESP THERAPY HHN Last administered on 10/09/18 13:11; Admin Dose 0.5 MG; Start 10/06/18 at 20:00 Pramipexole (Mirapex) 0.75 mg QHS PO Last administered on 10/08/18 20:27; Admin Dose 0.75 MG; Start 10/06/18 at 21:00 Alprazolam (Xanax) 0.5 mg BID PO Last administered on 10/09/18 09:01; Admin Dose 0.5 MG; Start 10/06/18 at 21:00 Vancomycin HCl (Vanco Iv Per Pharmacy) VANCOMYCIN PER PHARMACY PER PROTOCOL XX ; Start 10/06/18 at 17:30 Famotidine (Pepcid) 20 mg BID PO Last administered on 10/09/18 09:01; Admin Dose 20 MG; Start 10/06/18 at 21:00 Vancomycin HCl 1.25 gm/Sodium Chloride 250 ml @ 83.333 mls/ hr Q12H IVPB Last administered on 10/09/18 09:02; Admin Dose 83.333 MLS/HR; Start 10/06/18 at 20:00 Acetaminophen/ Hydrocodone Bitart ([place] (5/325)) 1 tab Q4H PRN PO PAIN LEVEL 7-10 Last administered on 10/09/18 09:08; Admin Dose 1 TAB; Start 10/07/18 at 21:30 Furosemide (Lasix) 40 mg DAILY IV ; Start 10/09/18 at 14:00; Status UNSARAH HERNADEZ MD October 09, 2018 13:53
--- NOTE | 2018-10-09 15:15 | CONS ---
Assessment/Plan Assessment/Plan Hospital Course (Demo Recall) No events overnight patient is alert looks comfortable denies pain no fevers WBC 8.3 no shift no bands BUN 21 creatinine 0.87 Microbiology: Blood cultures negative wound culture pending Antimicrobials: Vancomycin and Rocephin Physical examination: Well-developed obese 63-year-old woman who is alert in no distress. Head atraumatic normocephalic sclera nonicteric vehicle mucosa dry neck is supple chest rise symmetrical breath sounds clear heart S1-S2 abdomen soft bowel sounds present extremities with bilateral lower extremities edema right leg has a dry wound below knee Assessment: 1. Bilateral lower extremities lymphedema 2. Acute on chronic bilateral lower extremity cellulitis 3. CHF exacerbation 4. Atrial fibrillation 5. History of mitral valve repair 6. COPD Plan: Patient remains stable continue present care continue on current antibiotics for now follow cardiology recommendations Consultation Date/Type/Reason Admit Date/Time October 05, 2018 at 19:04 Initial Consult Date Type of Consult id Date/Time of Note DATE: 10/09/18 TIME: 15:15 Exam/Review of Systems Exam Vitals Vital Signs Date Temp Pulse Resp B/P (MAP) Pulse Ox O2 O2 Flow FiO2 Time Delivery Rate 10/09/18 74 18 95 21 13:12 10/09/18 97.8 130/79 11:21 (96) 10/09/18 Nasal 2.0 01:10 Cannula Intake and Output 10/08/18 10/08/18 10/09/18 1515:00 23:00 07:00 IntakeIntake Total 250 ml 850 ml 450 ml BalanceBalance 250 ml 850 ml 450 ml Results Result Diagram: 10/09/18 0940 10/09/18 0940 Results 24hrs Laboratory Tests Test 10/09/18 09:40 White Blood Count 8.3 Red Blood Count 4.12 L Hemoglobin 12.3 Hematocrit 38.4 Mean Corpuscular Volume 93.2 Mean Corpuscular Hemoglobin 29.9 Mean Corpuscular Hemoglobin Concent 32.0 Red Cell Distribution Width 14.5 Platelet Count 238 Mean Platelet Volume 9.5 Immature Granulocytes % 0.600 H Neutrophils % 73.5 Lymphocytes % 12.2 L Monocytes % 9.2 Eosinophils % 4.0 Basophils % 0.5 Nucleated Red Blood Cells % 0.0 Immature Granulocytes # 0.050 H Neutrophils # 6.1 Lymphocytes # 1.0 Monocytes # 0.8 Eosinophils # 0.3 Basophils # 0.0 Nucleated Red Blood Cells # 0.0 Sodium Level 140 Potassium Level 4.5 Chloride Level 106 Carbon Dioxide Level 27 Anion Gap 7 Blood Urea Nitrogen 21 H Creatinine 0.87 Est Glomerular Filtrat Rate mL/min > 60 Glucose Level 104 Calcium Level 9.1 Magnesium Level 2.1 Total Bilirubin 0.4 Direct Bilirubin 0.00 Indirect Bilirubin 0.4 Aspartate Amino Transf (AST/SGOT) 32 Alanine Aminotransferase (ALT/SGPT) 18 Alkaline Phosphatase 103 B-Type Natriuretic Peptide 531 H Total Protein 7.5 Albumin 3.8 Globulin 3.70 H Albumin/Globulin Ratio 1.02 Medications Medication Current Medications Apixaban (Eliquis) 5 mg BID PO Last administered on 10/09/18at 09:01; Admin Dose 5 MG; Start 10/06/18 at 09:00 IV Flush (NS 3 ml) 3 ml PER PROTOCOL IV ; Start 10/05/18 at 23:00 Ondansetron HCl (Zofran Inj) 4 mg Q6H PRN IV NAUSEA/VOMITING; Start 10/05/18 at 23:00 Acetaminophen (Tylenol Tab) 650 mg Q6H PRN PO .PAIN 1-3 OR TEMP; Start 10/05/18 at 23:00 Acetaminophen (Tylenol Supp) 650 mg Q6H PRN [place] .PAIN 1-3 OR TEMP; Start 10/05/18 at 23:00 Docusate Sodium (Colace) 100 mg Q12H PRN PO .CONSTIPATION; Start 10/05/18 at 23:00 Magnesium Hydroxide (Milk Of Mag) 30 ml DAILY PRN PO .CONSTIPATION; Start 10/05/18 at 23:00 Bisacodyl (Dulcolax) 5 mg DAILY PRN PO .CONSTIPATION; Start 10/05/18 at 23:00 Ceftriaxone Sodium 50 ml @ 100 mls/hr DAILY IVPB Last administered on 10/09/18at 09:04; Admin Dose 100 MLS/HR; Start 10/06/18 at 09:00 Albuterol (Proventil 0.083% (Neb)) 1.25 mg Q6H RESP THERAPY HHN Last administered on 10/09/18at 13:11; Admin Dose 1.25 MG; Start 10/06/18 at 20:00 Ipratropium [place] (Atrovent 0.02% (Neb)) 0.5 mg Q6H RESP THERAPY HHN Last administered on 10/09/18 13:11; Admin Dose 0.5 MG; Start 10/06/18 at 20:00 Pramipexole (Mirapex) 0.75 mg QHS PO Last administered on 10/08/18 20:27; Admin Dose 0.75 MG; Start 10/06/18 at 21:00 Alprazolam (Xanax) 0.5 mg BID PO Last administered on 10/09/18 09:01; Admin Dose 0.5 MG; Start 10/06/18 at 21:00 Vancomycin HCl (Vanco Iv Per Pharmacy) VANCOMYCIN PER PHARMACY PER PROTOCOL XX ; Start 10/06/18 at 17:30 Famotidine (Pepcid) 20 mg BID PO Last administered on 10/09/18 09:01; Admin Dose 20 MG; Start 10/06/18 at 21:00 Vancomycin HCl 1.25 gm/Sodium Chloride 250 ml @ 83.333 mls/ hr Q12H IVPB Last administered on 10/09/18 09:02; Admin Dose 83.333 MLS/HR; Start 10/06/18 at 20:00 Acetaminophen/ Hydrocodone Bitart ([place] (5/325)) 1 tab Q4H PRN PO PAIN LEVEL 7-10 Last administered on 10/09/18 09:08; Admin Dose 1 TAB; Start 10/07/18 at 21:30 Furosemide (Lasix) 40 mg DAILY IV ; Start 10/09/18 at 14:00 Miscellaneous Information (*Rx Drug Level Order Reminder*) VANCO TROUGH ON 09/27... 0700 ONCE XX ; Start 10/10/18 at 07:00; Stop 10/10/18 at 07:01 ALMA ROSA BARNES NP October 09, 2018 15:15
[2018-10-09] MEDS: COLLAGENASE 5 GM (UD JAR) TOP SCH ×2 (16:03→21:20)
[2018-10-09] MEDS: FUROSEMIDE 40 MG INJ IV SCH (16:03)
--- NOTE | 2018-10-09 17:48 | CONS ---
DATE OF ADMISSION: 10/05/2018 DATE OF CONSULTATION: 10/09/2018 TYPE OF CONSULTATION: Surgical. REASON FOR CONSULTATION: Evaluation of the lesion on the right bhandari and also evaluation of the patient with both lower extremities edema and swelling for a long time. HISTORY OF PRESENT ILLNESS: Actually, this patient was referred to Dr. Gerard' surgical clinic several days ago. When I saw her first in, she was complaining of shortness of breath and also swelling of both lower extremities and at that time, they found that there was erythema of both lower extremities and also on the right bhandari, there was anteriorly a dry lesion of the skin about 3 x 3 cm which appears to be a little bit deep going into the tissues. The patient had a biopsy report in which apparently wound doctor had done biopsy outside of the hospital in clinic for her and the report of the biopsy was keratoacanthoma. Considering the possibility of cellulitis of the lower extremities with lymphedema and possibly also pitting edema, so the patient was advised and was referred to emergency room to be worked out for her possible congestive heart failure, possible pneumonia, possible cellulitis of lower extremities and other medical problems. The patient was admitted to the medical service and has been seen by data management specialist in consultation for heart problem and also has been seen by infectious disease people and by internal medicine. The patient has been started on antibiotics, Zosyn and vancomycin, considering the cellulitis of the lower extremities and possible pneumonia and also Lasix for treatment of possible congestive heart failure. The patient meanwhile has had more study including chest thorax, CT angiogram and also chest ultrasound which failed to show any evidence of pleural effusion, both lower extremities venous study which failed to show any deep vein thrombosis and also ultrasound evaluation of the left upper extremity venous system which failed to show any evidence of deep vein thrombosis in that area. PAST MEDICAL HISTORY: The patient was admitted in this hospital almost a year ago for possible congestive heart failure and past history, the patient states that she was in [place], [place] few years ago when she was rehabilitation for treatment of alcohol addiction and over there, she got pneumonia with some chest problem with pleural effusion, but she said that they never admitted her in the hospital and somehow they treated her over there. PAST SURGICAL HISTORY: The patient has extensive history of operation in the past includin. 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 2. In 2012, she has had transgender sex transformation operation in [facility] [place]. 3. Later on in 2010, she has had liposuction of the lower abdomen and groin areas. 4. She has had complete facelift x2. 5. She has had breast augmentation some years ago. 6. She has had bilateral lower extremity superficial saphenous vein ablation for bilateral varicose veins per patient. 7. She has had also some trauma to the wrist and fractured bone which has been treated by internal fixation. PHYSICAL EXAMINATION: GENERAL: The patient is alert, awake, oriented x3, lying down in the bed, does not appear in acute distress. VITAL SIGNS: Today, temperature 97.8, heart rate 67 in atrial fibrillation, respiratory rate 16 and 18, blood pressure 130/79, saturation 98% on room air. HEAD AND NECK: Grossly within normal limits. HEART: Atrial fibrillation with slow rate. LUNGS: Harsh breathing sound, slight decreased breathing sound mainly on the right side. ABDOMEN: Soft. GENITOURINARY: The patient has external genitalia of the female, but of course she admits that she has had sex change operation many years ago in [facility] [place] and has status from genital male to female. EXTREMITIES: Lower extremities: There is mild erythema of both lower extremities. There appears to be 2+ pitting edema of both feet, but also there is generalized edema of both lower extremities from the ankles to thighs to the groins. To me, it appears to be lymphedema and maybe trace pitting edema. Dorsalis pedis pulses bilaterally are palpable. There is 3 x 3 cm wide lesion of the skin anterior bhandari which is quite dry and appears like it was grossly. There is no purulence and discharge to this lesion and this is the lesion which has been biopsied and has been reported to be keratoacanthoma. LABORATORY DATA: Today, WBC 8300 and it has been like this since admission, differential 73% which is normal differential, hemoglobin 12.3, hematocrit 38.4. Chemistry at time of admission: Sodium and potassium are normal. BUN and creatinine are normal. There has been 1 episode of increased beta natriuretic peptide which was high at 1330. Today chemistry: Sodium, potassium are normal. BUN and creatinine are normal. Natriuretic peptide has decreased to 531, still is up. Bilirubin is normal. Albumin and globulin are normal range. Coagulation normal parameters. Urinalysis has not been abnormal. DIAGNOSTIC DATA: Reports of the images including chest x-ray and CT scan of the thorax: Please refer to the official report which is in the chart. IMPRESSION: This is a transgender woman with multiple medical complaints or problems includin. Possible congestive heart failure. 2. Thickening of the pleural lining on the right side, question of pleural effusion, question of old infection and fibrosis in the right lung. 3. Cannabis abuser. 4. Previously EtOH. 5. Previously cigarette smoker. 6. Question of chronic obstructive pulmonary disease. 7. Bilateral lower extremity lymphedema (possible cause liposuction and destroying the lymphatics in the groin). 8. Possible mild pitting edema due to possible congestive heart failure with fluid overload. 9. Cellulitis of bilateral lower extremity with induration of the subcutaneous tissues. 10. Keratoacanthoma of the right anterior bhandari per report of the biopsy which was done outside of the hospital. SUGGESTIONS AND PLAN: Under general surgery, I recommend: 1. Elevation of the lower extremity by elevating lower end of bed and this should be done by putting a special pillows under the mattress not above the mattress but under the mattress and elevate it up to 45 degrees and keep the patient's lower extremities on top of it all the time. 2. Local treatment of the wound as follows: A. Put Santyl cream on the wound. B. Cover it with Adaptic. C. Place [place] jelly on Adaptic for moisture. D. Put sponges on top of it. E. Wrap around it with Kerlix or tape it onto the skin. The dressing should be done b.i.d. 3. Continue antibiotic per infectious disease. 4. Treatment of heart problem and pulmonary problem per internal medicine and data management specialist. 5. We will continue to see the patient on daily basis. 6. Please make sure that the foot of the bed is always elevated 45 degrees. Thank you for consultation. Dictated By: JAYDE KANG MD PS/NTS Conf#: [id number] DID#: [id number] CC: GARDENIA DOSHI MD;*EndCC* MTDD
[2018-10-09] MEDS: PRAMIPEXOLE 0.25 MG TAB PO SCH (21:20)
[2018-10-10] VITALS (12 sets, daily range): BP systolic 116–128; BP diastolic 68–83; PULSE 68–86; RESP 16–20
[2018-10-10] MEDS: ALBUTEROL 0.083% (NEB) 2.5 MG/3 ML AMP HHN SCH ×4 (01:17→19:46)
[2018-10-10] MEDS: IPRATROPIUM (NEB) 0.5 MG/2.5 ML AMP HHN SCH ×4 (01:17→19:47)
[2018-10-10] MEDS: CEFTRIAXONE 1 GM/50 ML (PMX) 50 ML IVPB SCH (08:38)
[2018-10-10] MEDS: APIXABAN 5 MG TABLET PO SCH ×2 (08:38→20:16)
[2018-10-10] MEDS: COLLAGENASE 5 GM (UD JAR) TOP SCH ×2 (08:38→20:17)
[2018-10-10] MEDS: FAMOTIDINE 20 MG TAB PO SCH ×2 (08:38→20:15)
[2018-10-10] MEDS: ALPRAZOLAM 0.5 MG TAB PO SCH (08:39)
[2018-10-10] MEDS: FUROSEMIDE 40 MG INJ IV SCH ×2 (08:39→20:17)
[2018-10-10] MEDS: VANCOMYCIN HCL 1.25 GM in SOD CHLORIDE 0.9% 250 ML IVPB SCH (10:50)
[2018-10-10] MEDS ORDERED: METOCLOPRAMIDE 10 MG INJ IV PRN (12:00)
[2018-10-10] MEDS ORDERED: METOCLOPRAMIDE 10 MG INJ IV SCH (12:00)
--- NOTE | 2018-10-10 12:51 | PN ---
Date/Time of Note Date/Time of Note DATE: 10/10/18 TIME: 12:42 Assessment/Plan VTE Prophylaxis Risk score (from Ns)>0 risk: 4 SCD applied (from Ns): Yes Pharmacological prophylaxis: NA/contraindicated Pharm contraindication: low risk/ambulating Lines/Catheters IV Catheter Type (from Nrs): Saline Lock Urinary Cath still in place: No Assessment/Plan Assessment/Plan 1. SOB with acute decompensated congestive heart failure, EF 50%, CT chest Extensive chronic abnormalities of the right chest including volume loss, pleural thickening, and parenchymal mass-like infiltrates, most likely stable since 09/25/2017, She was seen in the past for this and was told that it has been shrinking and patient had refused biopsy in the past, this was probably done in [place] 2. Chronic Atrial fibrillation, controlled 3. History of mitral valve repair 4. Cough, decreased 5. Obesity 6. history of restless legs syndrome, 7. BLE edema likely secondary to CHF vs Lymphedema lower extremities mixed etiology pt had vascular surgery on lower extremities, also abdominal liposuction. Since patient is on estradiol due to transgender change 8. History of being transgender , ow changed gender, currently on estrogen 9. Keratoacanthoma right leg with cellulitis, s/p biopsy. results are pending 10, S/p tonsillectomy, S.p removal of Tellez's neuroma, 2000, left wrist fracture fixed, 1997, open heart surgery, mitral valve repair 05/2009, full facial reconstruction, facelift, neck lift 03/2013 as far as gender reassignment surgery, 2012, leg veins palliative surgery, 2014, facelift, neck lift, breast augmentation twice, liposuction, and hair transplants. 10. hx of trauma right foot recently 11. Anemia Assessment/Plan -Increase Lasix to 40 IV twice daily, restriction strict 1 L and strict I's and O's -Decrease frequency of [place] due to sleepiness and dose as needed -CT scan of the abdomen and pelvis today for any lymphadenopathy -Elevate the legs as per surgery -c/w Rocephin and Vanco, fu ID recs -Treated with Eliquis -supp. oxygen -bl. cul negative -fluid restrictions 1 L -c/w breathing treatment -CT of her chest with no evidence of significant volume overload. Consider possible infectious or primary pulmonary etiology as well -Echocardiogram: Ejection fraction is visually estimated at 50 %. Abnormal Diastolic Function. -Dr Bond cardiology seen -pt need plastic surgeon consultation right leg for reconstructive surgery outpatient Result Diagram: 10/09/18 0940 10/10/18 0704 Results 24hrs Laboratory Tests Test 10/10/18 07:04 Sodium Level 140 Potassium Level 4.2 Chloride Level 103 Carbon Dioxide Level 31 Anion Gap 6 Blood Urea Nitrogen 21 H Creatinine 1.02 H Est Glomerular Filtrat Rate mL/min 55 L Glucose Level 93 Calcium Level 9.0 Phosphorus Level 4.5 Magnesium Level 2.1 Vancomycin Level Trough 18.1 Subjective 24 Hr Interval Summary Free Text/Dictation lethargic does not like to raise her legs and she gets short of breath Exam/Review of Systems Exam Vitals Vital Signs Date Temp Pulse Resp B/P (MAP) Pulse Ox O2 O2 Flow FiO2 Time Delivery Rate 10/10/18 85 12:12 10/10/18 97.4 16 128/68 96 Room Air 11:18 (88) 10/10/18 2.0 08:00 10/10/18 21 01:17 Intake and Output 10/09/18 10/09/18 10/10/18 1414:59 22:59 06:59 IntakeIntake Total 850 ml 550 ml BalanceBalance 850 ml 550 ml Exam nstitutional: Lethargic Psych: depression Neck: supple Respiratory: deCreased breath sounds at the bases, rhonchi at the bases Cardiovascular: regular rate and rhythm Gastrointestinal: soft Musculoskeletal: ble swelling++, thickening of the skin present at the ankles keratocanthoma t leg Results Results 24hrs Laboratory Tests Test 10/10/18 07:04 Sodium Level 140 Potassium Level 4.2 Chloride Level 103 Carbon Dioxide Level 31 Anion Gap 6 Blood Urea Nitrogen 21 H Creatinine 1.02 H Est Glomerular Filtrat Rate mL/min 55 L Glucose Level 93 Calcium Level 9.0 Phosphorus Level 4.5 Magnesium Level 2.1 Vancomycin Level Trough 18.1 Medications Medication Current Medications Apixaban (Eliquis) 5 mg BID PO Last administered on 10/10/18at 08:38; Admin Dose 5 MG; Start 10/06/18 at 09:00 IV Flush (NS 3 ml) 3 ml PER PROTOCOL IV ; Start 10/05/18 at 23:00 Ondansetron HCl (Zofran Inj) 4 mg Q6H PRN IV NAUSEA/VOMITING Last administered on 10/10/18at 05:52; Admin Dose 4 MG; Start 10/05/18 at 23:00 Acetaminophen (Tylenol Tab) 650 mg Q6H PRN PO .PAIN 1-3 OR TEMP; Start 10/05/18 at 23:00 Acetaminophen (Tylenol Supp) 650 mg Q6H PRN [place] .PAIN 1-3 OR TEMP; Start 10/05/18 at 23:00 Docusate Sodium (Colace) 100 mg Q12H PRN PO .CONSTIPATION; Start 10/05/18 at 23:00 Magnesium Hydroxide (Milk Of Mag) 30 ml DAILY PRN PO .CONSTIPATION; Start 10/05/18 at 23:00 Bisacodyl (Dulcolax) 5 mg DAILY PRN PO .CONSTIPATION; Start 10/05/18 at 23:00 Ceftriaxone Sodium 50 ml @ 100 mls/hr DAILY IVPB Last administered on 10/10/18at 08:38; Admin Dose 100 MLS/HR; Start 10/06/18 at 09:00 Albuterol (Proventil 0.083% (Neb)) 1.25 mg Q6H RESP THERAPY HHN Last administered on 10/10/18 01:17; Admin Dose 1.25 MG; Start 10/06/18 at 20:00 Ipratropium [place] (Atrovent 0.02% (Neb)) 0.5 mg Q6H RESP THERAPY HHN Last administered on 10/10/18at 01:17; Admin Dose 0.5 MG; Start 10/06/18 at 20:00 Pramipexole (Mirapex) 0.75 mg QHS PO Last administered on 10/09/18at 21:20; Admin Dose 0.75 MG; Start 10/06/18 at 21:00 Alprazolam (Xanax) 0.5 mg BID PO Last administered on 10/10/18 08:39; Admin Dose 0.5 MG; Start 10/06/18 at 21:00 Vancomycin HCl (Vanco Iv Per Pharmacy) VANCOMYCIN PER PHARMACY PER PROTOCOL XX ; Start 10/06/18 at 17:30 Famotidine (Pepcid) 20 mg BID PO Last administered on 10/10/18at 08:38; Admin Dose 20 MG; Start 10/06/18 at 21:00 Acetaminophen/ Hydrocodone Bitart ([place] (5/325)) 1 tab Q4H PRN PO PAIN LEVEL 7-10 Last administered on 10/09/18at 21:21; Admin Dose 1 TAB; Start 10/07/18 at 21:30 Furosemide (Lasix) 40 mg DAILY IV Last administered on 10/10/18at 08:39; Admin Dose 40 MG; Start 10/09/18 at 14:00 Collagenase (Santyl) 1 applic BID TOP Last administered on 10/10/18at 08:38; Admin Dose 1 APPLIC; Start 10/09/18 at 16:00 Metoclopramide HCl (Reglan) 10 mg Q6H PRN IV NAUSEA; Start 10/10/18 at 12:00 Vancomycin HCl 250 ml @ 125 mls/hr Q12H IVPB ; Start 10/10/18 at 22:00 SARAH GARCIA MD October 10, 2018 12:51
--- NOTE | 2018-10-10 15:22 | CONS ---
Assessment/Plan Assessment/Plan Hospital Course (Demo Recall) No events overnight no fevers Microbiology: Blood cultures negative wound culture pending Antimicrobials: Vancomycin and Rocephin Physical examination: Well-developed obese 63-year-old woman who is alert in no distress. Head atraumatic normocephalic sclera nonicteric vehicle mucosa dry neck is supple chest rise symmetrical breath sounds clear heart S1-S2 abdomen soft bowel sounds present extremities with bilateral lower extremities edema right leg has a dry wound below knee Assessment: 1. Bilateral lower extremities lymphedema 2. Acute on chronic bilateral lower extremity cellulitis 3. CHF exacerbation 4. Atrial fibrillation 5. History of mitral valve repair 6. COPD Plan: Patient remains stable, will change abx to oral Doxycycline to continue for 5 more days Consultation Date/Type/Reason Admit Date/Time October 05, 2018 at 19:04 Initial Consult Date Type of Consult id Date/Time of Note DATE: 10/10/18 TIME: 15:21 Exam/Review of Systems Exam Vitals Vital Signs Date Temp Pulse Resp B/P (MAP) Pulse Ox O2 O2 Flow FiO2 Time Delivery Rate 10/10/18 69 18 98 21 14:44 10/10/18 97.4 128/68 Room Air 11:18 (88) 10/10/18 2.0 08:00 Intake and Output 10/09/18 10/09/18 10/10/18 1515:00 23:00 07:00 IntakeIntake Total 850 ml 550 ml BalanceBalance 850 ml 550 ml Results Result Diagram: 10/09/18 0940 10/10/18 0704 Results 24hrs Laboratory Tests Test 10/10/18 07:04 Sodium Level 140 Potassium Level 4.2 Chloride Level 103 Carbon Dioxide Level 31 Anion Gap 6 Blood Urea Nitrogen 21 H Creatinine 1.02 H Est Glomerular Filtrat Rate mL/min 55 L Glucose Level 93 Calcium Level 9.0 Phosphorus Level 4.5 Magnesium Level 2.1 Vancomycin Level Trough 18.1 Medications Medication Current Medications Apixaban (Eliquis) 5 mg BID PO Last administered on 10/10/18at 08:38; Admin Dose 5 MG; Start 10/06/18 at 09:00 IV Flush (NS 3 ml) 3 ml PER PROTOCOL IV ; Start 10/05/18 at 23:00 Ondansetron HCl (Zofran Inj) 4 mg Q6H PRN IV NAUSEA/VOMITING Last administered on 10/10/18 05:52; Admin Dose 4 MG; Start 10/05/18 at 23:00 Acetaminophen (Tylenol Tab) 650 mg Q6H PRN PO .PAIN 1-3 OR TEMP; Start 10/05/18 at 23:00 Acetaminophen (Tylenol Supp) 650 mg Q6H PRN [place] .PAIN 1-3 OR TEMP; Start 10/05/18 at 23:00 Docusate Sodium (Colace) 100 mg Q12H PRN PO .CONSTIPATION; Start 10/05/18 at 23:00 Magnesium Hydroxide (Milk Of Mag) 30 ml DAILY PRN PO .CONSTIPATION; Start 10/05/18 at 23:00 Bisacodyl (Dulcolax) 5 mg DAILY PRN PO .CONSTIPATION; Start 10/05/18 at 23:00 Ceftriaxone Sodium 50 ml @ 100 mls/hr DAILY IVPB Last administered on 10/10/18 08:38; Admin Dose 100 MLS/HR; Start 10/06/18 at 09:00 Albuterol (Proventil 0.083% (Neb)) 1.25 mg Q6H RESP THERAPY HHN Last administered on 10/10/18 14:44; Admin Dose 1.25 MG; Start 10/06/18 at 20:00 Ipratropium [place] (Atrovent 0.02% (Neb)) 0.5 mg Q6H RESP THERAPY HHN Last ad ministered on 10/10/18at 14:44; Admin Dose 0.5 MG; Start 10/06/18 at 20:00 Pramipexole (Mirapex) 0.75 mg QHS PO Last administered on 10/09/18at 21:20; Admin Dose 0.75 MG; Start 10/06/18 at 21:00 Vancomycin HCl (Vanco Iv Per Pharmacy) VANCOMYCIN PER PHARMACY PER PROTOCOL XX ; Start 10/06/18 at 17:30 Famotidine (Pepcid) 20 mg BID PO Last administered on 10/10/18 08:38; Admin Dose 20 MG; Start 10/06/18 at 21:00 Collagenase (Santyl) 1 applic BID TOP Last administered on 10/10/18 08:38; Admin Dose 1 APPLIC; Start 10/09/18 at 16:00 Metoclopramide HCl (Reglan) 10 mg Q6H PRN IV NAUSEA; Start 10/10/18 at 12:00 Vancomycin HCl 250 ml @ 125 mls/hr Q12H IVPB ; Start 10/10/18 at 22:00 Acetaminophen/ Hydrocodone Bitart ([place] (5/325)) 1 tab Q6 PRN PO PAIN LEVEL 7- 10; Start 10/10/18 at 13:00 Alprazolam (Xanax) 0.5 mg BID PRN PO ANXIETY; Start 10/10/18 at 13:00 Furosemide (Lasix) 40 mg BID IV ; Start 10/10/18 at 21:00 ALMA ROSA BARNES NP October 10, 2018 15:22
--- NOTE | 2018-10-10 15:51 | PN ---
DATE: 10/10/2018 The patient has been admitted because of complaint of shortness of breath and swelling of the lower extremities and lesion on the right anterior bhandari. Biopsy on the lesion of the skin of anterior bhandari which has been done off site has been reported by pathologist as keratoacanthoma. SUBJECTIVE: Feels okay. No new event except that she states that she gets more short of breath when the foot of the leg is elevated. OBJECTIVE: VITAL SIGNS: Temperature maximum 97.4, heart rate 70, respirations 16, blood pressure 128/68, saturation 96% on room air. HOSPITAL COURSE: We had ordered to have Santyl ointment and then cover with Adaptic and other dressings and wrap it with Kerlix, but right now, the patient is out of the bed and walking in the hallway and there is no dressing on the wound over the right leg. The patient prefers that the dressing be fixed and hold in place with tapes. Overall, the admitting diagnosis of the patient has been: 1. Bilateral lower extremity lymphedema. 2. Acute on chronic bilateral lower extremity cellulitis. 3. Congestive heart failure. Cardiology has seen the patient. 4. Atrial fibrillation. 5. History of mitral valve repair. 5. Chronic obstructive pulmonary disease. The patient has been seen by infectious disease. They recommended to continue on current antibiotics. Also, asset availability leader is following the patient recommending their own recommendation. The patient's Lasix has been increased today by medical service and fluid intake has been ordered to be restricted to 1 liter per day and creatinine slightly has increased today which is slightly out of range of normal. It has increased to 1.02. It was 0.[address] scan of the abdomen and pelvis has been ordered by medical service and the report on the chart was noticed. Basically, it was ordered by internal medicine to rule out pelvic adenopathy causing the edema or lymphedema but apparently there is no adenopathy reported on the CT scan report. IMPRESSION: The patient is transgender and has had many operations, liposuction, gender change operation and lower extremity bilateral superficial venous cannulation for supposedly varices. The patient only has deep venous system remained. Ultrasound Doppler in this hospital was done on this admission to rule out deep vein thrombosis. Of course, there is no evidence of deep venous thrombosis but I do not know about the competency of deep venous system valve because that can account to some extent for the bilateral lower extremity swelling and edema. Still, I believe this is mostly the lymphedema and there is some degree of pitting edema in that,too. Suggestion from surgical point of view in regard to the wound and through swelling of the lower extremities is: 1. Elevation of lower part of the bed to 45 degree at least. 2. Application of Santyl ointment on the right lower extremity anterior bhandari wound and cover it with Adaptic and then sponges and then tape it in place. This should be done b.i.d. We will continue to follow. Dictated By: JAYDE KANG MD PS/NTS Conf#: [id number] DID#: [id number] CC: GARDENIA DOSHI MD;*EndCC* MTDD
--- NOTE | 2018-10-10 16:43 | CONS ---
DATE OF ADMISSION: 10/05/2018 DATE OF CONSULTATION: TYPE OF CONSULTATION: Pulmonary. REASON FOR CONSULT: Abnormal chest CTA. HISTORY OF PRESENT ILLNESS: This is a 63-year-old transgender individual who has had increasing shor tness of breath, respiratory distress, presented with lower extremity cellulitis following biopsy of anterior bhandari wound. The patient states she has had chronic right-sided infiltrate which has previou sly been biopsied in the past and negative for malignancy. The patient had declined further workup. CT of the chest performed today shows chronic lung changes with reduced volume in the right lung wit h atelectasis. PAST MEDICAL HISTORY: In addition, Tellez's neuroma, left wrist fracture and mitral valve repair, tr ansgender individual with multiple cosmetic surgery, transgender reassignment surgery in 2019, breast augmentation, hip transplant and valve replacement. MEDICATIONS: Per chart. ALLERGIES: NONE. SOCIAL HISTORY: Significant ongoing marijuana use. PHYSICAL EXAMINATION: GENERAL: Well-nourished, well-developed lady, comfortable at rest, in no acute distress. VITAL SIGNS: Currently afebrile, pulse is 58, blood pressure 128/75, O2 saturation 96% on room air. NECK: Supple. No JVD. No lymphadenopathy. CARDIAC: S1, S2. No added sounds or murmurs. CHEST: Diminished air entry bilaterally. ABDOMEN: Soft, nontender. No guarding or rebound. EXTREMITIES: No cyanosis, clubbing, edema. NEUROLOGIC: Grossly intact. No focal deficits. DIAGNOSTIC DATA: Chest CT was reviewed, which showed volume loss in the right lung with chronic pleu ral thickening and atelectasis. Lower extremity Dopplers are negative for deep vein thrombosis. IMPRESSION AND PLAN: Chronic right lung process which does not require further workup at present. I would recommend continue treatment of cellulitis, repeat CT of the chest in 6 months' time and encou rage activity and bronchodilator treatment. Dictated By: LIZET SALAS MD SV/NTS Conf#: [id number] DID#: [id number] CC: GARDENIA DOSHI MD; JAYDE KANG MD;*EndCC*
--- NOTE | 2018-10-10 17:14 | CONS ---
Assessment/Plan Cardiology NYHA: II Heart Failure Type: Acute Heart Failure Type: Both Assessment/Plan Hospital Course (Demo Recall) Acute decompensated systolic/diastolic congestive heart failure Cardiomyopathy with left ventricular ejection fraction 50% Atrial fibrillation History of mitral valve repair -Patient shortness of breath has continued to improve as well as lower extremity edema. -Patient's diuretics has been restarted, continue as renal function and blood pressure permits -Lower extremity edema likely multifactorial including an element of volume overload as well as possibly lymphedema versus venous insufficiency. Her legs are less tense after diuretics -Continue anticoagulation as tolerated Consultation Date/Type/Reason Admit Date/Time October 05, 2018 at 19:04 Initial Consult Date Type of Consult Cardiology Date/Time of Note DATE: 10/10/18 TIME: 17:12 24 HR Interval Summary Free Text/Dictation Denies shortness of breath, lower extremity swelling has improved. Complains of fatigue Exam/Review of Systems Vital Signs Vitals Vital Signs Date Temp Pulse Resp B/P (MAP) Pulse Ox O2 O2 Flow FiO2 Time Delivery Rate 10/10/18 70 16:01 10/10/18 97.6 16 128/75 97 Room Air 15:30 (92) 10/10/18 21 14:44 10/10/18 2.0 08:00 Intake and Output 10/09/18 10/09/18 10/10/18 1414:59 22:59 06:59 IntakeIntake Total 850 ml 550 ml BalanceBalance 850 ml 550 ml Exam Constitutional: alert, oriented Head: normocephalic Respiratory: other (Coarse breath sounds bilaterally, no wheezing) Cardiovascular: irregular rhythm, systolic murmur (S1-S2 heard) Gastrointestinal: soft, non-tender, bowel sounds Extremities: edema Labs Result Diagram: 10/09/18 0940 10/10/18 0704 Results 24hrs Laboratory Tests Test 10/10/18 07:04 Sodium Level 140 Potassium Level 4.2 Chloride Level 103 Carbon Dioxide Level 31 Anion Gap 6 Blood Urea Nitrogen 21 H Creatinine 1.02 H Est Glomerular Filtrat Rate mL/min 55 L Glucose Level 93 Calcium Level 9.0 Phosphorus Level 4.5 Magnesium Level 2.1 Vancomycin Level Trough 18.1 Medications Medications Current Medications Apixaban (Eliquis) 5 mg BID PO Last administered on 10/10/18at 08:38; Admin Dose 5 MG; Start 10/06/18 at 09:00 IV Flush (NS 3 ml) 3 ml PER PROTOCOL IV ; Start 10/05/18 at 23:00 Ondansetron HCl (Zofran Inj) 4 mg Q6H PRN IV NAUSEA/VOMITING Last administered on 10/10/18at 05:52; Admin Dose 4 MG; Start 10/05/18 at 23:00 Acetaminophen (Tylenol Tab) 650 mg Q6H PRN PO .PAIN 1-3 OR TEMP; Start 10/05/18 at 23:00 Acetaminophen (Tylenol Supp) 650 mg Q6H PRN [place] .PAIN 1-3 OR TEMP; Start 10/05/18 at 23:00 Docusate Sodium (Colace) 100 mg Q12H PRN PO .CONSTIPATION; Start 10/05/18 at 23:00 Magnesium Hydroxide (Milk Of Mag) 30 ml DAILY PRN PO .CONSTIPATION; Start 10/05 at 23:00 Bisacodyl (Dulcolax) 5 mg DAILY PRN PO .CONSTIPATION; Start 10/05/18 at 23:00 Albuterol (Proventil 0.083% (Neb)) 1.25 mg Q6H RESP THERAPY HHN Last administered on 10/10/18at 14:44; Admin Dose 1.25 MG; Start 10/06/18 at 20:00 Ipratropium [place] (Atrovent 0.02% (Neb)) 0.5 mg Q6H RESP THERAPY HHN Last administered on 10/10/18at 14:44; Admin Dose 0.5 MG; Start 10/06/18 at 20:00 Pramipexole (Mirapex) 0.75 mg QHS PO Last administered on 10/09/18at 21:20; Admin Dose 0.75 MG; Start 10/06/18 at 21:00 Famotidine (Pepcid) 20 mg BID PO Last administered on 10/10/18 08:38; Admin Dose 20 MG; Start 10/06/18 at 21:00 Collagenase (Santyl) 1 applic BID TOP Last administered on 10/10/18at 08:38; Admin Dose 1 APPLIC; Start 10/09/18 at 16:00 Metoclopramide HCl (Reglan) 10 mg Q6H PRN IV NAUSEA; Start 10/10/18 at 12:00 Acetaminophen/ Hydrocodone Bitart ([place] (5/325)) 1 tab Q6 PRN PO PAIN LEVEL 7- 10; Start 10/10/18 at 13:00 Alprazolam (Xanax) 0.5 mg BID PRN PO ANXIETY; Start 10/10/18 at 13:00 Furosemide (Lasix) 40 mg BID IV ; Start 10/10/18 at 21:00 Doxycycline Hyclate (Vibramycin) 100 mg BID PO ; Start 10/10/18 at 21:00 Juvenal Bond DO October 10, 2018 17:14
[2018-10-10] MEDS: HYDROCODONE/APAP (5/325) TAB PO PRN (20:16)
[2018-10-10] MEDS: ALPRAZOLAM 0.5 MG TAB PO PRN (20:16)
[2018-10-10] MEDS: DOXYCYCLINE 100 MG TAB PO SCH (20:17)
[2018-10-10] MEDS: PRAMIPEXOLE 0.25 MG TAB PO SCH (20:17)
[2018-10-10] MEDS ORDERED: VANCOMYCIN 1 GM 250 ML IVPB SCH (22:00)
[2018-10-11] VITALS (10 sets, daily range): BP systolic 110–139; BP diastolic 65–84; PULSE 69–118; RESP 17–20
[2018-10-11] MEDS ORDERED: ZOLPIDEM 5 MG TAB PO ONE ×2 (00:30→21:00)
[2018-10-11] MEDS: ALBUTEROL 0.083% (NEB) 2.5 MG/3 ML AMP HHN SCH ×4 (02:04→20:07)
[2018-10-11] MEDS: IPRATROPIUM (NEB) 0.5 MG/2.5 ML AMP HHN SCH ×4 (02:04→20:07)
[2018-10-11] MEDS: FAMOTIDINE 20 MG TAB PO SCH ×2 (08:55→20:08)
[2018-10-11] MEDS: DOXYCYCLINE 100 MG TAB PO SCH ×2 (08:55→20:08)
[2018-10-11] MEDS: FUROSEMIDE 40 MG INJ IV SCH (08:56)
[2018-10-11] MEDS: APIXABAN 5 MG TABLET PO SCH ×2 (08:56→20:08)
[2018-10-11] MEDS: COLLAGENASE 5 GM (UD JAR) TOP SCH ×2 (08:57→20:08)
[2018-10-11] MEDS: LORAZEPAM 2 MG INJ IV PRN ×2 (12:19→22:53)
--- NOTE | 2018-10-11 12:36 | CONS ---
Assessment/Plan Cardiology NYHA: II Heart Failure Type: Acute Heart Failure Type: Both Assessment/Plan Hospital Course (Demo Recall) Acute decompensated systolic/diastolic congestive heart failure Cardiomyopathy with left ventricular ejection fraction 50% Atrial fibrillation History of mitral valve repair Psychiatric disorder -Patient with improvement in shortness of breath and some improvement in lower extremity edema. In discussion with primary physician/assistant superintendent for curriculum, would attempt a Bumex drip today to see if any further improvement. -It is hard to gauge from the patient if she is feeling better, she becomes agitated at times and tells me "I been awake for 24 hours a day and working the past 7 days straight to survive and that is why I do not feel well", but patient has been hospitalized for the past few days. -Lower extremity edema likely multifactorial including an element of volume overload as well as possibly lymphedema versus venous insufficiency. Her legs are less tense after diuretics. We will see if any further improvement with Bumex drip -Continue anticoagulation as tolerated Consultation Date/Type/Reason Admit Date/Time October 05, 2018 at 19:04 Initial Consult Date Type of Consult Cardiology Date/Time of Note DATE: 10/11/18 TIME: 12:33 24 HR Interval Summary Free Text/Dictation Denies current shortness of breath, still with lower extremity edema but it is improving. Denies chest pain Exam/Review of Systems Vital Signs Vitals Vital Signs Date Temp Pulse Resp B/P (MAP) Pulse Ox O2 O2 Flow FiO2 Time Delivery Rate 10/11/18 98.0 78 18 118/65 97 Room Air 11:39 (82) 10/11/18 2.0 08:00 10/11/18 21 07:25 Intake and Output 10/10/18 10/10/18 10/11/18 1515:00 23:00 07:00 IntakeIntake Total 520 ml 320 ml BalanceBalance 520 ml 320 ml Exam Exam Becomes agitated at times Constitutional: alert, oriented Head: normocephalic Respiratory: other (Coarse breath sounds bilaterally, no wheezing) Cardiovascular: irregular rhythm, systolic murmur (S1-S2 heard) Gastrointestinal: soft, non-tender, bowel sounds Extremities: edema Labs Result Diagram: 10/09/18 0940 10/11/18 1014 Results 24hrs Laboratory Tests Test 10/11/18 10:14 Sodium Level 139 Potassium Level 4.0 Chloride Level 100 Carbon Dioxide Level 30 Anion Gap 9 Blood Urea Nitrogen 22 H Creatinine 0.96 Est Glomerular Filtrat Rate mL/min 59 L Glucose Level 113 Calcium Level 9.7 Medications Medications Current Medications Apixaban (Eliquis) 5 mg BID PO Last administered on 10/11/18 08:56; Admin Dose 5 MG; Start 10/06/18 at 09:00 IV Flush (NS 3 ml) 3 ml PER PROTOCOL IV ; Start 10/05/18 at 23:00 Ondansetron HCl (Zofran Inj) 4 mg Q6H PRN IV NAUSEA/VOMITING Last administered on 10/10/18 05:52; Admin Dose 4 MG; Start 10/05/18 at 23:00 Acetaminophen (Tylenol Tab) 650 mg Q6H PRN PO .PAIN 1-3 OR TEMP; Start 10/05/18 at 23:00 Acetaminophen (Tylenol Supp) 650 mg Q6H PRN [place] .PAIN 1-3 OR TEMP; Start 10/05/18 at 23:00 Docusate Sodium (Colace) 100 mg Q12H PRN PO .CONSTIPATION; Start 10/05/18 at 23:00 Magnesium Hydroxide (Milk Of Mag) 30 ml DAILY PRN PO .CONSTIPATION; Start 10/05/18 at 23:00 Bisacodyl (Dulcolax) 5 mg DAILY PRN PO .CONSTIPATION; Start 10/05/18 at 23:00 Albuterol (Proventil 0.083% (Neb)) 1.25 mg Q6H RESP THERAPY HHN Last administered on 10/11/18 07:24; Admin Dose 1.25 MG; Start 10/06/18 at 20:00 [place]pratropium [place] (Atrovent 0.02% (Neb)) 0.5 mg Q6H RESP THERAPY HHN Last administered on 10/11/18 07:24; Admin Dose 0.5 MG; Start 10/06/18 at 20:00 Pramipexole (Mirapex) 0.75 mg QHS PO Last administered on 10/10/18 20:17; Admin Dose 0.75 MG; Start 10/06/18 at 21:00 Famotidine (Pepcid) 20 mg BID PO Last administered on 10/11/18 08:55; Admin Dose 20 MG; Start 10/06/18 at 21:00 Collagenase (Santyl) 1 applic BID TOP Last administered on 10/11/18 08:57; Admin Dose 1 APPLIC; Start 10/09/18 at 16:00 Metoclopramide HCl (Reglan) 10 mg Q6H PRN IV NAUSEA; Start 10/10/18 at 12:00 Acetaminophen/ Hydrocodone Bitart ([place] (5/325)) 1 tab Q6 PRN PO PAIN LEVEL 7- 10 Last administered on 10/10/18 20:16; Admin Dose 1 TAB; Start 10/10/18 at 13:00 Alprazolam (Xanax) 0.5 mg BID PRN PO ANXIETY Last administered on 10/10/18 20:16; Admin Dose 0.5 MG; Start 10/10/18 at 13:00 Doxycycline Hyclate (Vibramycin) 100 mg BID PO Last administered on 10/11/18 08:55; Admin Dose 100 MG; Start 10/10/18 at 21:00 Lorazepam (Ativan) 1 mg Q6H PRN IV ANXIETY Last administered on 10/11/18at 12:19; Admin Dose 1 MG; Start 10/11/18 at 12:30 Bumetanide 4 mg/ Dextrose 52 ml @ 10 mls/hr Q5H12M ONCE IV ; Start 10/11/18 at 12:30; Stop 10/11/18 at 17:41; Status Juvenal Thompson DO October 11, 2018 12:36
--- NOTE | 2018-10-11 12:38 | PN ---
Date/Time of Note Date/Time of Note DATE: 10/11/18 TIME: 12:28 Assessment/Plan VTE Prophylaxis Risk score (from Ns)>0 risk: 4 SCD applied (from Ns): No SCD contraindicated: low risk/ambulating Pharmacological prophylaxis: NA/contraindicated Pharm contraindication: low risk/ambulating Lines/Catheters IV Catheter Type (from [facility]): [place] Urinary Cath still in place: No Assessment/Plan Assessment/Plan 1. SOB with acute decompensated congestive heart failure, EF 50%, CT chest Extensive chronic abnormalities of the right chest including volume loss, pleural thickening, and parenchymal mass-like infiltrates, most likely stable since 09/25/2017, She was seen in the past for this and was told that it has been shrinking and patient had refused biopsy in the past, this was probably done in [place] 2. Chronic Atrial fibrillation, controlled 3. History of mitral valve repair 4. Cough, decreased 5. Obesity 6. history of restless legs syndrome, 7. BLE edema likely secondary to CHF vs Lymphedema lower extremities mixed etiology pt had vascular surgery on lower extremities, also abdominal liposuction. Since patient is on estradiol due to transgender change 8. History of being transgender , ow changed gender, currently on estrogen 9. Keratoacanthoma right leg with cellulitis, s/p biopsy. results are pending 10, S/p tonsillectomy, S.p removal of Tellez's neuroma, 2000, left wrist fracture fixed, 1997, open heart surgery, mitral valve repair 05/2009, full facial reconstruction, facelift, neck lift 03/2013 as far as gender reassignment surgery, 2012, leg veins palliative surgery, 2014, facelift, neck lift, breast augmentation twice, liposuction, and hair transplants. 10. hx of trauma right foot recently 11. Anemia 12 Depression with suicidal ideation Assessment/Plan -spoke to Dr Bond will do bumex gtt for few hrs and watch for diuresis to see if improvement in diuresis - iv ativan for anxiety - pscy consult - 1:1 sitter, social scientist talking to patient - CT scan of the abdomen and pelvis reviewed -Elevate the legs as per surgery -c/w Rocephin and Vanco, fu ID recs -Treated with Eliquis -supp. oxygen -bl. cul negative -fluid restrictions 1 L -c/w breathing treatment -CT of her chest with no evidence of significant volume overload. no intervention per pul -Echocardiogram: Ejection fraction is visually estimated at 50 %. Abnormal Diastolic Function. -Dr Bond cardiology seen -pt need plastic surgeon consultation right leg for reconstructive surgery outpatient Result Diagram: 10/09/18 0940 10/11/18 1014 Results 24hrs Laboratory Tests Test 10/11/18 10:14 Sodium Level 139 Potassium Level 4.0 Chloride Level 100 Carbon Dioxide Level 30 Anion Gap 9 Blood Urea Nitrogen 22 H Creatinine 0.96 Est Glomerular Filtrat Rate mL/min 59 L Glucose Level 113 Calcium Level 9.7 Subjective 24 Hr Interval Summary Free Text/Dictation She is feeling suicidal, says she wants to kill herself sHe has been using daily marijuana at home Is quite frustrated with her medical condition and ble edema Exam/Review of Systems Exam Vitals Vital Signs Date Temp Pulse Resp B/P (MAP) Pulse Ox O2 O2 Flow FiO2 Time Delivery Rate 10/11/18 98.0 78 18 118/65 97 Room Air 11:39 (82) 10/11/18 2.0 08:00 10/11/18 21 07:25 Intake and Output 10/10/18 10/10/18 10/11/18 1414:59 22:59 06:59 IntakeIntake Total 520 ml 320 ml BalanceBalance 520 ml 320 ml Exam Exam nstitutional: Awake alert Psych: depression Neck: supple Respiratory: deCreased breath sounds at the bases, rhonchi at the bases Cardiovascular: regular rate and rhythm Gastrointestinal: soft Musculoskeletal: ble swelling++, thickening of the skin present at the ankles keratocanthoma t leg Results Results 24hrs Laboratory Tests Test 10/11/18 10:14 Sodium Level 139 Potassium Level 4.0 Chloride Level 100 Carbon Dioxide Level 30 Anion Gap 9 Blood Urea Nitrogen 22 H Creatinine 0.96 Est Glomerular Filtrat Rate mL/min 59 L Glucose Level 113 Calcium Level 9.7 Medications Medication Current Medications Apixaban (Eliquis) 5 mg BID PO Last administered on 10/11/18at 08:56; Admin Dose 5 MG; Start 10/06/18 at 09:00 IV Flush (NS 3 ml) 3 ml PER PROTOCOL IV ; Start 10/05/18 at 23:00 Ondansetron HCl (Zofran Inj) 4 mg Q6H PRN IV NAUSEA/VOMITING Last administered on 10/10/18 05:52; Admin Dose 4 MG; Start 10/05/18 at 23:00 Acetaminophen (Tylenol Tab) 650 mg Q6H PRN PO .PAIN 1-3 OR TEMP; Start 10/05/18 at 23:00 Acetaminophen (Tylenol Supp) 650 mg Q6H PRN [place] .PAIN 1-3 OR TEMP; Start 10/05/18 at 23:00 Docusate Sodium (Colace) 100 mg Q12H PRN PO .CONSTIPATION; Start 10/05/18 at 23:00 Magnesium Hydroxide (Milk Of Mag) 30 ml DAILY PRN PO .CONSTIPATION; Start 10/05/18 at 23:00 Bisacodyl (Dulcolax) 5 mg DAILY PRN PO .CONSTIPATION; Start 10/05/18 at 23:00 Albuterol (Proventil 0.083% (Neb)) 1.25 mg Q6H RESP THERAPY HHN Last administered on 10/11/18at 07:24; Admin Dose 1.25 MG; Start 10/06/18 at 20:00 Ipratropium [place] (Atrovent 0.02% (Neb)) 0.5 mg Q6H RESP THERAPY HHN Last administered on 10/11/18 07:24; Admin Dose 0.5 MG; Start 10/06/18 at 20:00 Pramipexole (Mirapex) 0.75 mg QHS PO Last administered on 10/10/18 20:17; Admin Dose 0.75 MG; Start 10/06/18 at 21:00 Famotidine (Pepcid) 20 mg BID PO Last administered on 10/11/18 08:55; Admin Dose 20 MG; Start 10/06/18 at 21:00 Collagenase (Santyl) 1 applic BID TOP Last administered on 10/11/18 08:57; Admin Dose 1 APPLIC; Start 10/09/18 at 16:00 Metoclopramide HCl (Reglan) 10 mg Q6H PRN IV NAUSEA; Start 10/10/18 at 12:00 Acetaminophen/ Hydrocodone Bitart ([place] (5/325)) 1 tab Q6 PRN PO PAIN LEVEL 7- 10 Last administered on 10/10/18 20:16; Admin Dose 1 TAB; Start 10/10/18 at 13:00 Alprazolam (Xanax) 0.5 mg BID PRN PO ANXIETY Last administered on 10/10/18at 20:16; Admin Dose 0.5 MG; Start 10/10/18 at 13:00 Doxycycline Hyclate (Vibramycin) 100 mg BID PO Last administered on 10/11/18at 08:55; Admin Dose 100 MG; Start 10/10/18 at 21:00 Lorazepam (Ativan) 1 mg Q6H PRN IV ANXIETY Last administered on 10/11/18at 12:19; Admin Dose 1 MG; Start 10/11/18 at 12:30 SARAH GARCIA MD October 11, 2018 12:38
[2018-10-11] MEDS ORDERED: BUMETANIDE 4 MG in DEXTROSE 5% 24 ML IV ONE (14:00)
--- NOTE | 2018-10-11 14:41 | CONS ---
Assessment/Plan Assessment/Plan Hospital Course (Demo Recall) Patient is awake and very depressed dialysis social worker at bedside, no fevers overnight Microbiology: Blood cultures negative wound culture pending Antimicrobials: Doxycycline Physical examination: Well-developed obese 63-year-old woman who is alert in no distress. Head atraumatic normocephalic sclera nonicteric vehicle mucosa dry neck is supple chest rise symmetrical breath sounds clear heart S1-S2 abdomen soft bowel sounds present extremities with bilateral lower extremities edema right leg has a dry wound below knee Assessment: 1. Bilateral lower extremities lymphedema 2. Acute on chronic bilateral lower extremity cellulitis 3. CHF exacerbation 4. Atrial fibrillation 5. History of mitral valve repair 6. COPD Plan: Clinically unchanged, continue abx, psych eval Consultation Date/Type/Reason Admit Date/Time October 05, 2018 at 19:04 Initial Consult Date Type of Consult id Date/Time of Note DATE: 10/11/18 TIME: 14:40 Exam/Review of Systems Exam Vitals Vital Signs Date Temp Pulse Resp B/P (MAP) Pulse Ox O2 O2 Flow FiO2 Time Delivery Rate 10/11/18 118 14:10 10/11/18 98.0 18 118/65 97 Room Air 11:39 (82) 10/11/18 2.0 08:00 10/11/18 21 07:25 Intake and Output 10/10/18 10/10/18 10/11/18 1515:00 23:00 07:00 IntakeIntake Total 520 ml 320 ml BalanceBalance 520 ml 320 ml Results Result Diagram: 10/09/18 0940 10/11/18 1014 Results 24hrs Laboratory Tests Test 10/11/18 10:14 Sodium Level 139 Potassium Level 4.0 Chloride Level 100 Carbon Dioxide Level 30 Anion Gap 9 Blood Urea Nitrogen 22 H Creatinine 0.96 Est Glomerular Filtrat Rate mL/min 59 L Glucose Level 113 Calcium Level 9.7 Medications Medication Current Medications Apixaban (Eliquis) 5 mg BID PO Last administered on 10/11/18at 08:56; Admin Dose 5 MG; Start 10/06/18 at 09:00 IV Flush (NS 3 ml) 3 ml PER PROTOCOL IV ; Start 10/05/18 at 23:00 Ondansetron HCl (Zofran Inj) 4 mg Q6H PRN IV NAUSEA/VOMITING Last administered on 10/10/18at 05:52; Admin Dose 4 MG; Start 10/05/18 at 23:00 Acetaminophen (Tylenol Tab) 650 mg Q6H PRN PO .PAIN 1-3 OR TEMP; Start 10/05/18 at 23:00 Acetaminophen (Tylenol Supp) 650 mg Q6H PRN [place] .PAIN 1-3 OR TEMP; Start 10/05/18 at 23:00 Docusate Sodium (Colace) 100 mg Q12H PRN PO .CONSTIPATION; Start 10/05/18 at 23:00 Magnesium Hydroxide (Milk Of Mag) 30 ml DAILY PRN PO .CONSTIPATION; Start 10/05/18 at 23:00 Bisacodyl (Dulcolax) 5 mg DAILY PRN PO .CONSTIPATION; Start 10/05/18 at 23:00 Albuterol (Proventil 0.083% (Neb)) 1.25 mg Q6H RESP THERAPY HHN Last administered on 10/11/18at 07:24; Admin Dose 1.25 MG; Start 10/06/18 at 20:00 Ipratropium [place] (Atrovent 0.02% (Neb)) 0.5 mg Q6H RESP THERAPY HHN Last administered on 10/11/18at 07:24; Admin Dose 0.5 MG; Start 10/06/18 at 20:00 Pramipexole (Mirapex) 0.75 mg QHS PO Last administered on 10/10/18at 20:17; Admin Dose 0.75 MG; Start 10/06/18 at 21:00 Famotidine (Pepcid) 20 mg BID PO Last administered on 10/11/18at 08:55; Admin Dose 20 MG; Start 10/06/18 at 21:00 Collagenase (Santyl) 1 applic BID TOP Last administered on 10/11/18 08:57; Admin Dose 1 APPLIC; Start 10/09/18 at 16:00 Metoclopramide HCl (Reglan) 10 mg Q6H PRN IV NAUSEA; Start 10/10/18 at 12:00 Acetaminophen/ Hydrocodone Bitart ([place] (5/325)) 1 tab Q6 PRN PO PAIN LEVEL 7- 10 Last administered on 10/10/18at 20:16; Admin Dose 1 TAB; Start 10/10/18 at 13:00 Alprazolam (Xanax) 0.5 mg BID PRN PO ANXIETY Last administered on 10/10/18at 20:16; Admin Dose 0.5 MG; Start 10/10/18 at 13:00 Doxycycline Hyclate (Vibramycin) 100 mg BID PO Last administered on 10/11/18at 08:55; Admin Dose 100 MG; Start 10/10/18 at 21:00 Lorazepam (Ativan) 1 mg Q6H PRN IV ANXIETY Last administered on 10/11/18at 12:19; Admin Dose 1 MG; Start 10/11/18 at 12:30 Bumetanide 4 mg/ Dextrose 40 ml @ 10 mls/hr Q4H ONCE IV ; Start 10/11/18 at 14:00; Stop 10/11/18 at 17:59 ALMA ROSA BARNES NP October 11, 2018 14:41
--- NOTE | 2018-10-11 14:44 | PSY ---
Date/Time of Note Date/Time of Note DATE: 10/11/18 TIME: 14:19 Psychiatric Subjective Eval Subjective Evaluation Chief Complaint: Pt referred to Ed with severe lymph edema and cullulitis Reason for consult: Suicidal ideation History of present illness This is a 63 year old transexual who has been treated for symptoms of bipolar disorder for most of her life. She reports that she has been prescribed nearly every medication on the book, and has not experienced any clinical improvement. She reports having a history of problems with racing thoughts which are negative intrusive in nature. She is self critical. She states that her racing thoughts keep her up at night. Sometimes she is up for several days. Generally she has difficulty sleeping more than a few hours. She was admitted for: 1. Acute decompensated congestive heart failure, EF 50% 2. Atrial fibrillation 3. History of mitral valve repair 4. Cough 5. Obesity 6. history of restless legs syndrome, 7. Lymphedema lower extremities mixed etiology pt had vascular surgery on lower extremities, also abdominal liposuction. 8. History of being transgender , ow changed gender, currently on estrogen 9. Keratoacanthoma right leg with cellulitis, s/p biopsy. results are pending 10, S/p tonsillectomy, S.p removal of Tellez's neuroma, 2000, left wrist fracture fixed, 1997, open heart surgery, mitral valve repair 05/2009, full facial reconstruction, facelift, neck lift 03/2013 as far as gender reassignment surgery, 2012, leg veins palliative surgery, 2014, facelift, neck lift, breast augmentation twice, liposaction, and hair transplants. 10. hx of trauma right foot recently During her hospital stay she has been irritable, easily agitated and has expressed thoughts that life is not worth living. She said, "I would rather take a pill and ." It to over 30 minutes to develop a therapeutic rapport with the patient. She was irritable, angry and not receptive for treatment recommendations. Eventually a consensus on treatment was obtained. She denies hallucinations or delusions. She does report feeling depressed, helpless and hopeless. She is depressed about her declining health. She has no prior history of psychiatric admissions. She has no prior history of suicide attempts. Past psychiatric history She said that she has been treated for bipolar disorder most of her adult life. She is also transsexual, and has been biologically a female for the past 12 years. She has been prescribed Depakote, Tegretol, a variety of antidepressants and antipsychotics all with little clinical benefit. She had never been prescribed Lamotrigine. She had been prescribed Gabapentin but at a dose significantly less than 600mg po tid. She denied any history of suicide attempts or psychiatric admissions. Medical history Problems Medical Problems: (1) Cellulitis Status: Acute (2) Shortness of breath Status: Acute Allergies: Coded Allergies: No Known Allergy (Unverified , 10/05/18) spoke with pt, no known allergy Substance Abuse Substance use: other (She reports excessive cannabis use, which has helpled stabilizer her mood. ) Social History Marital status: Level of education: College DPA/Conservatorship: No Occupation/Fpc: unemployed Psychiatric Objective Eval Review of Systems: Review of Systems: Applicable Constitutional: Normal Eyes: Normal ENT: Normal Neck: Normal Respiratory: Abnormal Chest/Breast: Normal Cardiovascular: Abnormal GI: Normal Genitourinary: Normal Skin: Abnormal Lymphatic: Normal Musculoskeletal: Normal Neurological: Normal Physical Examination: Physical Examination: Applicable Sleep: Insomnia Appetite: Adequate Energy: Adequate Interest: Adequate Mental Status Examination: Appearance: Groomed Eye Contact: Good Psychomotor Activity: Agitated Behavior: Hostile Speech: Pressured AFFECT: Libile, Depressed, Intense Mood: Depressed, Anxious Though Process: Linear Thought Content: Normal Suicidal: Yes Homicidal: No On 72 hour hold: No Orientation: x4 Cognition: Alert Insight: Intact Judgement: Intact Attention Span: Intact Laboratory Results Laboratory Tests Test 10/10/18 07:04 10/11/18 10:14 Sodium Level 140 mmol/L 139 mmol/L Potassium Level 4.2 mmol/L 4.0 mmol/L Chloride Level 103 mmol/L 100 mmol/L Carbon Dioxide Level 31 mmol/L 30 mmol/L Anion Gap 6 9 Blood Urea Nitrogen 21 mg/dl 22 mg/dl Creatinine 1.02 mg/dl 0.96 mg/dl Est Glomerular Filtrat Rate mL/min 55 mL/min 59 mL/min Glucose Level 93 mg/dl 113 mg/dl Calcium Level 9.0 mg/dl 9.7 mg/dl Phosphorus Level 4.5 mg/dl Magnesium Level 2.1 mg/dl Vancomycin Level Trough 18.1 ug/ml Assessment and Plan Assessment/Diagnosis Diagnosis F31.63 Bipolar disorder, severe, mixed without psychotic features. Recommendation/Plan Medication Management Gabapentin 300mg po daily, then increase 300mg daily until 900mg po tid. Latuda 40mg po pm on the first day, increase maximum daily dose 40mg every day until 120mg. Latuda 40mg po pm prn racing thoughts. This could be increased daily until 120mg po pm. Lamotrigine 25mg tab i po daily for 2 weeks, then 25 mg po bid for 2 weeks, then 50g po bid for 1 week, then 100mg po bid thereafter. Dysphoric Esha http://en.wikipedia.org/wiki/Mixed_state_%28psychiatry%29 http://www.psychiatrictimes .com/articles/jreyb-wkwwlq-leycm-xwfjqtqz-rpvyk-rtdc-1 http://www.bipolardisorderscenters.com/owgu-qw-januwrxzi-esha/ Lamotrigine: The role of lamotrigine in the management of bipolar disorder https://www.ncbi.nlm.nih.gov/pmc/articles/VZF2742901/ Lamotrigine (Lamictal) https://www.zacarias.org/Learn-More/Treatment/Crabnx-Zmycou-Vrhlzitdxue/Lamotrigine- (Lamictal) Anticonvulsant treatments of dysphoric esha: a trial of gabapentin, lamotrigine and carbamazepine in [facility] https://www.ncbi.nlm.nih.gov/pmc/articles/FHI4692502/ Multiple antipsychotics: No Discharge Disposition: Psychiatric inpatient Legal Status: Voluntary Other The patient is not medically cleared, and hence the issue of 5150 is mute. She appears to be medically competent at this time. She can not be safely treated in the community for her psychiatric condition at this time. She can not be safely treated at a psychiatric facility at this time. She does not require a sitter as she denies suicide intent. The risk for imminent self harm is remote. She has agreed to a treatment plan provided above. STEPHANIE PEDRO MD October 11, 2018 14:33
--- NOTE | 2018-10-11 16:56 | PN ---
DATE: 10/11/2018 SUBJECTIVE: Upon the patient has had some psychiatric issues, so they have requested a psychology consultation for her and also they have assign 1:1 sitter with the patient. Otherwise, she does not have that much of complaint and she was eating her lunch right now. OBJECTIVE: GENERAL: Awake, alert, oriented. VITAL SIGNS: Temperature maximum 98, heart rate 78, respiration 18, blood pressure 118/65, saturation 97% room air. HEART: Regular. LUNGS: Clear. Harsh breathing sounds. No wheezes. HEART: I think the heart is atrial fibrillation with a slow rate. ABDOMEN: Soft. No tenderness. LOWER EXTREMITIES: Cellulitis, erythema, I would say about 60% better. The swelling comparing to when I saw the patient 5 to 6 days ago in the clinic, swelling is may be slightly 20 or 30% at most better. The wound over the right bhandari is slightly better, some necrotic tissue has fallen off. The culture has been negative here. We know the biopsy was done and report was AKANTOKERATOMA which could be self-limited; therefore, if the patient cooperates and they can do the dressing with application of Santyl b.i.d., we hope that this is going to heal. LABORATORY DATA: sodium and potassium normal, BUN 22, creatinine has decreased to 0.96, which is upper normal level. [employer] Systems Engineer and nephrology are following the patient. Impression is that the swelling in the lower extremity is mostly from congestive heart failure. From surgical and on my point of view, I think swelling of the lower extremities mainly is lymphedema that is probably secondary to liposuction, which has destroyed a lot of lymphatics in the groin and also the operation that she has had for sex change This has caused also damage to the lymphatics in the groin area. Therefore, all of the procedure or maneuvers that the patient has to do even at home and follow is continued elevation of the foot of the bed 45-degree or even more as much as she can tolerate many hours during 24 hours. I instructed the patient and her friend how to do it and they have ordered some special 6 wide sponges that can go under the foot of the mattress and that caused elevation and she is going to order a big one when she goes home and she understands and she is planning to continue to have the foot of the bed up as much as possible, as many hours as possible at home, besides any other instructions given by aluminum sheet cutter and pearl restorer. We will continue to follow. Dictated By: JAYDE KANG MD PS/RAJEEV Conf#: [id number] DID#: [id number] CC: BRIDGER KEE NP; GARDENIA DOSHI MD;*EndCC* MTDD
[2018-10-11] MEDS: ALPRAZOLAM 0.5 MG TAB PO PRN (20:08)
[2018-10-11] MEDS: HYDROCODONE/APAP (5/325) TAB PO PRN (20:08)
[2018-10-11] MEDS: PRAMIPEXOLE 0.25 MG TAB PO SCH (20:08)
[2018-10-12] VITALS (9 sets, daily range): BP systolic 114–136; BP diastolic 59–77; PULSE 60–82; RESP 18–20
[2018-10-12] MEDS: ALBUTEROL 0.083% (NEB) 2.5 MG/3 ML AMP HHN SCH ×4 (01:47→20:30)
[2018-10-12] MEDS: IPRATROPIUM (NEB) 0.5 MG/2.5 ML AMP HHN SCH ×4 (01:47→20:30)
[2018-10-12] MEDS: APIXABAN 5 MG TABLET PO SCH ×2 (08:23→21:29)
[2018-10-12] MEDS: FAMOTIDINE 20 MG TAB PO SCH ×2 (08:23→21:00)
[2018-10-12] MEDS: COLLAGENASE 5 GM (UD JAR) TOP SCH ×2 (08:23→21:35)
[2018-10-12] MEDS: DOXYCYCLINE 100 MG TAB PO SCH ×2 (08:23→21:29)
--- NOTE | 2018-10-12 11:59 | PN ---
Date/Time of Note Date/Time of Note DATE: 10/12/18 TIME: 11:59 Assessment/Plan VTE Prophylaxis Risk score (from Ns)>0 risk: 3 SCD applied (from Ns): No SCD contraindicated: low risk/ambulating Pharmacological prophylaxis: NA/contraindicated Pharm contraindication: low risk/ambulating Lines/Catheters IV C[facility]ter Type [facility]from [facility] Saline Lock Urinary Cath still in place: No Assessment/Plan Assessment/Plan sessment/Plan 1. SOB with acute decompensated congestive heart failure, EF 50%, CT chest Extensive chronic abnormalities of the right chest including volume loss, pleural thickening, and parenchymal mass-like infiltrates, most likely stable since 09/25/2017, She was seen in the past for this and was told that it has been shrinking and patient had refused biopsy in the past, this was probably done in [place] 2. Chronic Atrial fibrillation, controlled 3. History of mitral valve repair 4. Cough, decreased 5. Obesity 6. history of restless legs syndrome, 7. BLE edema likely secondary to CHF vs Lymphedema lower extremities mixed etiology pt had vascular surgery on lower extremities, also abdominal liposuction. Since patient is on estradiol due to transgender change 8. History of being transgender , ow changed gender, currently on estrogen 9. Keratoacanthoma right leg with cellulitis, s/p biopsy. results are pending 10, S/p tonsillectomy, S.p removal of Tellez's neuroma, 2000, left wrist fracture fixed, 1997, open heart surgery, mitral valve repair 05/2009, full facial reconstruction, facelift, neck lift 03/2013 as far as gender reassignment surgery, 2012, leg veins palliative surgery, 2014, facelift, neck lift, breast augmentation twice, liposuction, and hair transplants. 10. hx of trauma right foot recently 11. Anemia 12 Depression with suicidal ideation Assessment/Plan [place] improved after Bumex diuresis, cr 1.06 will give Bumex drip for 4 hours again today - iv ativan for anxiety - per pscy will give Lamictal/gabapentin not sure if Latuda is covered with insurance will check with case management -Softener - CT scan of the abdomen and pelvis reviewed -Elevate the legs as per surgery -c/w Rocephin and Vanco, fu ID recs -Treated with Eliquis -supp. oxygen -bl. cul negative -fluid restrictions 1 L -c/w breathing treatment -CT of her chest with no evidence of significant volume overload. no intervention per pul -Echocardiogram: Ejection fraction is visually estimated at 50 %. Abnormal Diastolic Function. -Dr Bond cardiology seen -pt need plastic surgeon consultation right leg for reconstructive surgery outpatient Result Diagram: 10/09/18 0940 10/12/18 0558 Results 24hrs Laboratory Tests Test 10/12/18 05:58 Sodium Level 139 Potassium Level 4.3 Chloride Level 99 Carbon Dioxide Level 32 H Anion Gap 8 Blood Urea Nitrogen 29 H Creatinine 1.06 H Est Glomerular Filtrat Rate mL/min 53 L Glucose Level 117 Calcium Level 10.0 Subjective 24 Hr Interval Summary Free Text/Dictation Patient felt a lot better after Bumex drip yesterday Pain that she is able to lie down flat the swelling is somewhat little improved Patient's depression is also better however requesting the antidepressant medicines suggested by the psychiatrist Exam/Review of Systems Exam Vitals Vital Signs Date Temp Pulse Resp B/P (MAP) Pulse Ox O2 O2 Flow FiO2 Time Delivery Rate 10/12/18 66 08:09 10/12/18 18 95 21 07:54 10/12/18 97.6 136/77 Room Air 07:08 (96) 10/11/18 2.0 19:20 Intake and Output 10/11/18 10/11/18 10/12/18 1515:00 23:00 07:00 IntakeIntake Total 640 ml BalanceBalance 640 ml Exam Exam Exam nstitutional: Awake alert Psych: depression Neck: supple Respiratory: deCreased breath sounds at the bases, rhonchi at the bases Cardiovascular: regular rate and rhythm Gastrointestinal: soft Musculoskeletal: ble swelling++, thickening of the skin present at the ankles keratocanthoma t leg Results Results 24hrs Laboratory Tests Test 10/12/18 05:58 Sodium Level 139 Potassium Level 4.3 Chloride Level 99 Carbon Dioxide Level 32 H Anion Gap 8 Blood Urea Nitrogen 29 H Creatinine 1.06 H Est Glomerular Filtrat Rate mL/min 53 L Glucose Level 117 Calcium Level 10.0 Medications Medication Current Medications Apixaban (Eliquis) 5 mg BID PO Last administered on 10/12/18at 08:23; Admin Dose 5 MG; Start 10/06/18 at 09:00 IV Flush (NS 3 ml) 3 ml PER PROTOCOL IV ; Start 10/05/18 at 23:00 Ondansetron HCl (Zofran Inj) 4 mg Q6H PRN IV NAUSEA/VOMITING Last administered on 10/10/18 05:52; Admin Dose 4 MG; Start 10/05/18 at 23:00 Acetaminophen (Tylenol Tab) 650 mg Q6H PRN PO .PAIN 1-3 OR TEMP; Start 10/05/18 at 23:00 Acetaminophen (Tylenol Supp) 650 mg Q6H PRN [place] .PAIN 1-3 OR TEMP; Start 10/05/18 at 23:00 Docusate Sodium (Colace) 100 mg Q12H PRN PO .CONSTIPATION; Start 10/05/18 at 23:00 Magnesium Hydroxide (Milk Of Mag) 30 ml DAILY PRN PO .CONSTIPATION; Start 10/05/18 at 23:00 Bisacodyl (Dulcolax) 5 mg DAILY PRN PO .CONSTIPATION; Start 10/05/18 at 23:00 Albuterol (Proventil 0.083% (Neb)) 1.25 mg Q6H RESP THERAPY HHN Last administered on 10/12/18 07:52; Admin Dose 1.25 MG; Start 10/06/18 at 20:00 Ipratropium [place] (Atrovent 0.02% (Neb)) 0.5 mg Q6H RESP THERAPY HHN Last administered on 10/12/18 07:52; Admin Dose 0.5 MG; Start 10/06/18 at 20:00 Pramipexole (Mirapex) 0.75 mg QHS PO Last administered on 10/11/18 20:08; Admin Dose 0.75 MG; Start 10/06/18 at 21:00 Famotidine (Pepcid) 20 mg BID PO Last administered on 10/12/18 08:23; Admin Dose 20 MG; Start 10/06/18 at 21:00 Collagenase (Santyl) 1 applic BID TOP Last administered on 10/12/18 08:23; Admin Dose 1 APPLIC; Start 10/09/18 at 16:00 Metoclopramide HCl (Reglan) 10 mg Q6H PRN IV NAUSEA; Start 10/10/18 at 12:00 Acetaminophen/ Hydrocodone Bitart ([place] (5/325)) 1 tab Q6 PRN PO PAIN LEVEL 7- 10 Last administered on 10/11/18 20:08; Admin Dose 1 TAB; Start 10/10/18 at 13:00 Alprazolam (Xanax) 0.5 mg BID PRN PO ANXIETY Last administered on 10/11/18 20:08; Admin Dose 0.5 MG; Start 10/10/18 at 13:00 Doxycycline Hyclate (Vibramycin) 100 mg BID PO Last administered on 10/12/18 08:23; Admin Dose 100 MG; Start 10/10/18 at 21:00 Lorazepam (Ativan) 1 mg Q6H PRN IV ANXIETY Last administered on 10/11/18 22:53; Admin Dose 1 MG; Start 10/11/18 at 12:30 SARAH GARCIA MD October 12, 2018 11:59
[2018-10-12] MEDS ORDERED: GABAPENTIN 300 MG CAP PO ONE (12:00)
[2018-10-12] MEDS ORDERED: DEXTROSE 5% IV ONE (13:30)
[2018-10-12] MEDS ORDERED: BUMETANIDE IV ONE (13:30)
--- NOTE | 2018-10-12 13:35 | CONS ---
Assessment/Plan Assessment/Plan Hospital Course (Demo Recall) No events, looks comfortable, no fevers Microbiology: Blood cultures negative wound culture pending Antimicrobials: Doxycycline Physical examination: Well-developed obese 63-year-old woman who is alert in no distress. Head atraumatic normocephalic sclera nonicteric vehicle mucosa dry neck is supple chest rise symmetrical breath sounds clear heart S1-S2 abdomen soft bowel sounds present extremities with bilateral lower extremities edema right leg has a dry wound below knee Assessment: 1. Bilateral lower extremities lymphedema 2. Acute on chronic bilateral lower extremity cellulitis 3. CHF exacerbation 4. Atrial fibrillation 5. History of mitral valve repair 6. COPD Plan: Stable, continue abx, encourage BLE elevation, surgical rec-s noted Consultation Date/Type/Reason Admit Date/Time October 05, 2018 at 19:04 Initial Consult Date Type of Consult id Date/Time of Note DATE: 10/12/18 TIME: 13:33 Exam/Review of Systems Exam Vitals Vital Signs Date Temp Pulse Resp B/P (MAP) Pulse Ox O2 O2 Flow FiO2 Time Delivery Rate 10/12/18 75 18 95 21 12:58 10/12/18 97.6 114/59 Room Air 12:09 (77) 10/11/18 2.0 19:20 Intake and Output 10/11/18 10/11/18 10/12/18 1515:00 23:00 07:00 IntakeIntake Total 640 ml BalanceBalance 640 ml Results Result Diagram: 10/09/18 0940 10/12/18 0558 Results 24hrs Laboratory Tests Test 10/12/18 05:58 Sodium Level 139 Potassium Level 4.3 Chloride Level 99 Carbon Dioxide Level 32 H Anion Gap 8 Blood Urea Nitrogen 29 H Creatinine 1.06 H Est Glomerular Filtrat Rate mL/min 53 L Glucose Level 117 Calcium Level 10.0 Medications Medication Current Medications Apixaban (Eliquis) 5 mg BID PO Last administered on 10/12/18at 08:23; Admin Dose 5 MG; Start 10/06/18 at 09:00 IV Flush (NS 3 ml) 3 ml PER PROTOCOL IV ; Start 10/05/18 at 23:00 Ondansetron HCl (Zofran Inj) 4 mg Q6H PRN IV NAUSEA/VOMITING Last administered on 10/10/18at 05:52; Admin Dose 4 MG; Start 10/05/18 at 23:00 Acetaminophen (Tylenol Tab) 650 mg Q6H PRN PO .PAIN 1-3 OR TEMP; Start 10/05/18 at 23:00 Acetaminophen (Tylenol Supp) 650 mg Q6H PRN [place] .PAIN 1-3 OR TEMP; Start 10/05/18 at 23:00 Docusate Sodium (Colace) 100 mg Q12H PRN PO .CONSTIPATION; Start 10/05/18 at 23:00 Magnesium Hydroxide (Milk Of Mag) 30 ml DAILY PRN PO .CONSTIPATION; Start 10/05/18 at 23:00 Bisacodyl (Dulcolax) 5 mg DAILY PRN PO .CONSTIPATION; Start 10/05/18 at 23:00 Albuterol (Proventil 0.083% (Neb)) 1.25 mg Q6H RESP THERAPY HHN Last admini stered on 10/12/18 12:56; Admin Dose 1.25 MG; Start 10/06/18 at 20:00 Ipratropium [place] (Atrovent 0.02% (Neb)) 0.5 mg Q6H RESP THERAPY HHN Last administered on 10/12/18 12:57; Admin Dose 0.5 MG; Start 10/06/18 at 20:00 Pramipexole (Mirapex) 0.75 mg QHS PO Last administered on 10/11/18 20:08; Admin Dose 0.75 MG; Start 10/06/18 at 21:00 Famotidine (Pepcid) 20 mg BID PO Last administered on 10/12/18 08:23; Admin Dose 20 MG; Start 10/06/18 at 21:00 Collagenase (Santyl) 1 applic BID TOP Last administered on 10/12/18 08:23; Admin Dose 1 APPLIC; Start 10/09/18 at 16:00 Metoclopramide HCl (Reglan) 10 mg Q6H PRN IV NAUSEA; Start 10/10/18 at 12:00 Acetaminophen/ Hydrocodone Bitart ([place] (5/325)) 1 tab Q6 PRN PO PAIN LEVEL 7- 10 Last administered on 10/11/18 20:08; Admin Dose 1 TAB; Start 10/10/18 at 13:00 Alprazolam (Xanax) 0.5 mg BID PRN PO ANXIETY Last administered on 10/11/18at 2 0:08; Admin Dose 0.5 MG; Start 10/10/18 at 13:00 Doxycycline Hyclate (Vibramycin) 100 mg BID PO Last administered on 10/12/18at 08:23; Admin Dose 100 MG; Start 10/10/18 at 21:00 Lorazepam (Ativan) 1 mg Q6H PRN IV ANXIETY Last administered on 10/11/18at 22:53; Admin Dose 1 MG; Start 10/11/18 at 12:30 Lamotrigine (Lamictal) 25 mg DAILY PO ; Start 10/12/18 at 12:00 Bumetanide 4 mg/ Dextrose 52 ml @ 10 mls/hr Q5H12M ONCE IV ; Start 10/12/18 at 13:30; Stop 10/12/18 at 18:41 ALMA ROSA BARNES NP October 12, 2018 13:35
[2018-10-12] MEDS: LAMOTRIGINE 25 MG TAB PO SCH (13:52)
--- NOTE | 2018-10-12 15:47 | CONS ---
Assessment/Plan Cardiology NYHA: II Heart Failure Type: Acute Heart Failure Type: Both Assessment/Plan Hospital Course (Demo Recall) Acute decompensated systolic/diastolic congestive heart failure Cardiomyopathy with left ventricular ejection fraction 50% Atrial fibrillation History of mitral valve repair Psychiatric disorder -Patient with improvement in shortness of breath lower extremity edema after initiation of Bumex drip yesterday. Patient plan for repeat Bumex drip today. We will continue his renal function blood pressure permits -Lower extremity edema likely multifactorial including an element of volume overload as well as possibly lymphedema versus venous insufficiency. Her legs are less tense after diuretics. Would continue diuretics as tolerated -Continue anticoagulation as tolerated Consultation Date/Type/Reason Admit Date/Time October 05, 2018 at 19:04 Initial Consult Date Type of Consult Cardiology Date/Time of Note DATE: 10/12/18 TIME: 15:45 24 HR Interval Summary Free Text/Dictation Patient with improvement shortness of breath and tenseness of lower extremity swelling. Overall feeling better Exam/Review of Systems Vital Signs Vitals Vital Signs Date Temp Pulse Resp B/P (MAP) Pulse Ox O2 O2 Flow FiO2 Time Delivery Rate 10/12/18 75 18 95 21 12:58 10/12/18 97.6 114/59 Room Air 12:09 (77) 10/11/18 2.0 19:20 Intake and Output 10/11/18 10/11/18 10/12/18 1515:00 23:00 07:00 IntakeIntake Total 640 ml BalanceBalance 640 ml Exam Constitutional: alert, oriented (No apparent distress) Head: normocephalic Respiratory: other (Coarse breath sounds bilaterally, no wheezing) Cardiovascular: irregular rhythm, other (S1-S2 heard) Gastrointestinal: soft, non-tender, bowel sounds Extremities: edema Labs Result Diagram: 10/09/18 0940 10/12/18 0558 Results 24hrs Laboratory Tests Test 10/12/18 05:58 Sodium Level 139 Potassium Level 4.3 Chloride Level 99 Carbon Dioxide Level 32 H Anion Gap 8 Blood Urea Nitrogen 29 H Creatinine 1.06 H Est Glomerular Filtrat Rate mL/min 53 L Glucose Level 117 Calcium Level 10.0 Medications Medications Current Medications Apixaban (Eliquis) 5 mg BID PO Last administered on 10/12/18at 08:23; Admin Dose 5 MG; Start 10/06/18 at 09:00 IV Flush (NS 3 ml) 3 ml PER PROTOCOL IV ; Start 10/05/18 at 23:00 Ondansetron HCl (Zofran Inj) 4 mg Q6H PRN IV NAUSEA/VOMITING Last administered on 10/10/18at 05:52; Admin Dose 4 MG; Start 10/05/18 at 23:00 Acetaminophen (Tylenol Tab) 650 mg Q6H PRN PO .PAIN 1-3 OR TEMP; Start 10/05/18 at 23:00 Acetaminophen (Tylenol Supp) 650 mg Q6H PRN [place] .PAIN 1-3 OR TEMP; Start 10/05/18 at 23:00 Docusate Sodium (Colace) 100 mg Q12H PRN PO .CONSTIPATION; Start 10/05/18 at 23:00 Magnesium Hydroxide (Milk Of Mag) 30 ml DAILY PRN PO .CONSTIPATION; Start 10/05/18 at 23:00 Bisacodyl (Dulcolax) 5 mg DAILY PRN PO .CONSTIPATION; Start 10/05/18 at 23:00 Albuterol (Proventil 0.083% (Neb)) 1.25 mg Q6H RESP THERAPY HHN Last administered on 10/12/18 12:56; Admin Dose 1.25 MG; Start 10/06/18 at 20:00 Ipratropium [place] (Atrovent 0.02% (Neb)) 0.5 mg Q6H RESP THERAPY HHN Last administered on 10/12/18at 12:57; Admin Dose 0.5 MG; Start 10/06/18 at 20:00 Pramipexole (Mirapex) 0.75 mg QHS PO Last administered on 10/11/18 20:08; Admin Dose 0.75 MG; Start 10/06/18 at 21:00 Famotidine (Pepcid) 20 mg BID PO Last administered on 10/12/18 08:23; Admin Dose 20 MG; Start 10/06/18 at 21:00 Collagenase (Santyl) 1 applic BID TOP Last administered on 10/12/18 08:23; Admin Dose 1 APPLIC; Start 10/09/18 at 16:00 Metoclopramide HCl (Reglan) 10 mg Q6H PRN IV NAUSEA; Start 10/10/18 at 12:00 Acetaminophen/ Hydrocodone Bitart ([place] (5/325)) 1 tab Q6 PRN PO PAIN LEVEL 7- 10 Last administered on 10/11/18 20:08; Admin Dose 1 TAB; Start 10/10/18 at 13 :00 Alprazolam (Xanax) 0.5 mg BID PRN PO ANXIETY Last administered on 10/11/18 20:08; Admin Dose 0.5 MG; Start 10/10/18 at 13:00 Doxycycline Hyclate (Vibramycin) 100 mg BID PO Last administered on 10/12/18 08:23; Admin Dose 100 MG; Start 10/10/18 at 21:00 Lorazepam (Ativan) 1 mg Q6H PRN IV ANXIETY Last administered on 10/11/18 22:53; Admin Dose 1 MG; Start 10/11/18 at 12:30 Lamotrigine (Lamictal) 25 mg DAILY PO Last administered on 10/12/18 13:52; Admin Dose 25 MG; Start 10/12/18 at 12:00 Bumetanide 4 mg/ Dextrose 52 ml @ 10 mls/hr Q5H12M ONCE IV Last administered on 10/12/18 14:34; Admin Dose 10 MLS/HR; Start 10/12/18 at 13:30; Stop 10/12/18 at 18:41 Juvenal Bond DO October 12, 2018 15:46
[2018-10-12] MEDS ORDERED: PRAMIPEXOLE 0.25 MG TAB PO ONE (16:50)
[2018-10-12] MEDS ORDERED: POLYETHYLENE GLYCOL 17 GM PACKET PO PRN (17:30)
[2018-10-12] MEDS: HYDROCODONE/APAP (5/325) TAB PO PRN ×3 (18:13→19:24)
[2018-10-12] MEDS: PRAMIPEXOLE 0.25 MG TAB PO SCH (21:30)
[2018-10-12] MEDS: ALPRAZOLAM 0.5 MG TAB PO PRN (21:34)
[2018-10-12] MEDS: LORAZEPAM 2 MG INJ IV PRN (21:34)
[2018-10-13] VITALS: BP 110/68; PULSE 73; PULSE 81; RESP 18
[2018-10-13] MEDS: IPRATROPIUM (NEB) 0.5 MG/2.5 ML AMP HHN SCH ×3 (02:29→14:52)
[2018-10-13] MEDS: ALBUTEROL 0.083% (NEB) 2.5 MG/3 ML AMP HHN SCH ×3 (02:30→14:52)
[2018-10-13] MEDS: HYDROCODONE/APAP (5/325) TAB PO PRN (02:53)
[2018-10-13 04:00] VITALS: PULSE 89
[2018-10-13] MEDS: LORAZEPAM 2 MG INJ IV PRN (04:51)
[2018-10-13 07:29] VITALS: BP 118/73; PULSE 78; RESP 22
[2018-10-13 08:03] VITALS: PULSE 77
[2018-10-13] MEDS: LAMOTRIGINE 25 MG TAB PO SCH (08:39)
[2018-10-13] MEDS: DOXYCYCLINE 100 MG TAB PO SCH (08:39)
[2018-10-13] MEDS: FAMOTIDINE 20 MG TAB PO SCH (08:39)
[2018-10-13] MEDS: APIXABAN 5 MG TABLET PO SCH (08:39)
[2018-10-13] MEDS: COLLAGENASE 5 GM (UD JAR) TOP SCH (08:40)
[2018-10-13 11:33] VITALS: BP 123/75; PULSE 74; RESP 22
--- NOTE | 2018-10-13 11:52 | CONS ---
Assessment/Plan Cardiology NYHA: II Heart Failure Type: Acute Heart Failure Type: Both Assessment/Plan Hospital Course (Demo Recall) Acute decompensated systolic/diastolic congestive heart failure Cardiomyopathy with left ventricular ejection fraction 50% Atrial fibrillation History of mitral valve repair Psychiatric disorder -Patient with improvement in shortness of breath lower extremity edema after Bumex drip. Appears comfortable today. Would start p.o. Bumex 1 mg twice daily and titrate as needed -Lower extremity edema likely multifactorial including an element of volume overload as well as possibly lymphedema versus venous insufficiency. Her legs are less tense after diuretics. -Continue anticoagulation as tolerated -DC planning Consultation Date/Type/Reason Admit Date/Time October 05, 2018 at 19:04 Initial Consult Date Type of Consult Cardiology Date/Time of Note DATE: 10/13/18 TIME: 11:51 24 HR Interval Summary Free Text/Dictation Patient seen and examined, sleeping Exam/Review of Systems Vital Signs Vitals Vital Signs Date Temp Pulse Resp B/P (MAP) Pulse Ox O2 O2 Flow FiO2 Time Delivery Rate 10/13/18 97.6 74 22 123/75 96 Room Air 11:33 (91) 10/13/18 21 08:52 10/11/18 2.0 19:20 Intake and Output 10/12/18 10/12/18 10/13/18 1515:00 23:00 07:00 IntakeIntake Total 1052 ml 450 ml OutputOutput Total 1100 ml 1050 ml BalanceBalance -48 ml -600 ml Exam Exam Sleeping, no apparent distress Head: normocephalic Respiratory: other (Coarse breath sounds bilaterally, no wheezing) Cardiovascular: irregular rhythm (S1-S2 heard) Gastrointestinal: soft, non-tender, bowel sounds Extremities: edema Labs Result Diagram: 10/09/18 0940 10/13/18 0640 Results 24hrs Laboratory Tests Test 10/13/18 06:40 Sodium Level 140 Potassium Level 4.3 Chloride Level 100 Carbon Dioxide Level 31 Anion Gap 9 Blood Urea Nitrogen 29 H Creatinine 1.04 H Est Glomerular Filtrat Rate mL/min 54 L Glucose Level 109 Calcium Level 10.1 Phosphorus Level 4.4 Magnesium Level 2.2 Medications Medications Current Medications Apixaban (Eliquis) 5 mg BID PO Last administered on 10/13/18at 08:39; Admin Dose 5 MG; Start 10/06/18 at 09:00 IV Flush (NS 3 ml) 3 ml PER PROTOCOL IV ; Start 10/05/18 at 23:00 Ondansetron HCl (Zofran Inj) 4 mg Q6H PRN IV NAUSEA/VOMITING Last administered on 10/10/18 05:52; Admin Dose 4 MG; Start 10/05/18 at 23:00 Acetaminophen (Tylenol Tab) 650 mg Q6H PRN PO .PAIN 1-3 OR TEMP; Start 10/05/18 at 23:00 Acetaminophen (Tylenol Supp) 650 mg Q6H PRN [place] .PAIN 1-3 OR TEMP; Start 10/05/18 at 23:00 Docusate Sodium (Colace) 100 mg Q12H PRN PO .CONSTIPATION; Start 10/05/18 at 23:00 Magnesium Hydroxide (Milk Of Mag) 30 ml DAILY PRN PO .CONSTIPATION; Start 10/05/18 at 23:00 Bisacodyl (Dulcolax) 5 mg DAILY PRN PO .CONSTIPATION; Start 10/05/18 at 23:00 Albuterol (Proventil 0.083% (Neb)) 1.25 mg Q6H RESP THERAPY HHN Last administered on 10/13/18 08:52; Admin Dose 1.25 MG; Start 10/06/18 at 20:00 Ipratropium [place] (Atrovent 0.02% (Neb)) 0.5 mg Q6H RESP THERAPY HHN Last administered on 10/13/18 08:52; Admin Dose 0.5 MG; Start 10/06/18 at 20:00 Pramipexole (Mirapex) 0.75 mg QHS PO Last administered on 10/12/18at 21:30; Admin Dose 0.75 MG; Start 10/06/18 at 21:00 Famotidine (Pepcid) 20 mg BID PO Last administered on 10/13/18 08:39; Admin Dose 20 MG; Start 10/06/18 at 21:00 Collagenase (Santyl) 1 applic BID TOP Last administered on 10/13/18 08:40; Admin Dose 1 APPLIC; Start 10/09/18 at 16:00 Metoclopramide HCl (Reglan) 10 mg Q6H PRN IV NAUSEA; Start 10/10/18 at 12:00 Acetaminophen/ Hydrocodone Bitart ([place] (5/325)) 1 tab Q6 PRN PO PAIN LEVEL 7- 10 Last administered on 10/13/18 02:53; Admin Dose 1 TAB; Start 10/10/18 at 13:00 Alprazolam (Xanax) 0.5 mg BID PRN PO ANXIETY Last administered on 10/12/18 21:34; Admin Dose 0.5 MG; Start 10/10/18 at 13:00 Doxycycline Hyclate (Vibramycin) 100 mg BID PO Last administered on 10/13/18at 08:39; Admin Dose 100 MG; Start 10/10/18 at 21:00 Lorazepam (Ativan) 1 mg Q6H PRN IV ANXIETY Last administered on 10/13/18 04:51; Admin Dose 1 MG; Start 10/11/18 at 12:30 Lamotrigine (Lamictal) 25 mg DAILY PO Last administered on 10/13/18 08:39; Admin Dose 25 MG; Start 10/12/18 at 12:00 Polyethylene Glycol (Miralax) 17 gm DAILY PRN PO CONSTIPATION; Start 10/12/18 at 17:30 Juvenal Bond DO October 13, 2018 11:52
[2018-10-13] MEDS ORDERED: BUMETANIDE 1 MG TAB PO SCH (12:00)
[2018-10-13 12:01] VITALS: PULSE 72
--- NOTE | 2018-10-13 13:06 | PDOCDIS ---
Discharge Instructions DIAGNOSIS Discharge Diagnosis BLE cellulitis CONDITION [id number] Patient Condition: [id number] Stable ACTIVITY: [id number] Activity Restrictions: [id number] Slowly Increase Activity Rest between Activity Avoid heavy lifting FOLLOW UP/APPOINTMENTS Follow-up Plan cardiology 2 weeks PCP 1 week -plastic surgeon 2 weeks -psychiatry with continuation program KIRTI LORENZO October 13, 2018 13:06
[2018-10-13] MEDS ORDERED: LAMO25TA8 PO (13:13)
[2018-10-13] MEDS ORDERED: BUME1TAB PO (13:13)
[2018-10-13] MEDS ORDERED: GABA300C16 PO (13:13)
[2018-10-13] MEDS ORDERED: DOXY100T2 PO (13:13)
--- NOTE | 2018-10-13 13:15 | CONS ---
Assessment/Plan Assessment/Plan Hospital Course (Demo Recall) No events, sleeping, lookc comfortable, no fevers Microbiology: Blood cultures negative wound culture pending Antimicrobials: Doxycycline Physical examination: Well-developed obese 63-year-old woman who is in no distress. Head atraumatic normocephalic sclera nonicteric vehicle mucosa dry neck is supple chest rise symmetrical breath sounds clear heart S1-S2 abdomen soft bowel sounds present extremities with bilateral lower extremities edema right leg has a dry wound below knee Assessment: 1. Bilateral lower extremities lymphedema 2. Acute on chronic bilateral lower extremity edema/cellulitis 3. CHF exacerbation 4. Atrial fibrillation 5. History of mitral valve repair 6. COPD 7. Psych Plan: Stable, continue abx, encourage BLE elevation, surgical/card rec-s Consultation Date/Type/Reason Admit Date/Time October 05, 2018 at 19:04 Initial Consult Date Type of Consult id Date/Time of Note DATE: 10/13/18 TIME: 13:14 Exam/Review of Systems Exam Vitals Vital Signs Date Temp Pulse Resp B/P (MAP) Pulse Ox O2 O2 Flow FiO2 Time Delivery Rate 10/13/18 72 12:01 10/13/18 97.6 22 123/75 96 Room Air 11:33 (91) 10/13/18 21 08:52 10/11/18 2.0 19:20 Intake and Output 10/12/18 10/12/18 10/13/18 1515:00 23:00 07:00 IntakeIntake Total 1052 ml 450 ml OutputOutput Total 1100 ml 1050 ml BalanceBalance -48 ml -600 ml Results Result Diagram: 10/09/18 0940 10/13/18 0640 Results 24hrs Laboratory Tests Test 10/13/18 06:40 Sodium Level 140 Potassium Level 4.3 Chloride Level 100 Carbon Dioxide Level 31 Anion Gap 9 Blood Urea Nitrogen 29 H Creatinine 1.04 H Est Glomerular Filtrat Rate mL/min 54 L Glucose Level 109 Calcium Level 10.1 Phosphorus Level 4.4 Magnesium Level 2.2 Medications Medication Current Medications Apixaban (Eliquis) 5 mg BID PO Last administered on 10/13/18at 08:39; Admin Dose 5 MG; Start 10/06/18 at 09:00 IV Flush (NS 3 ml) 3 ml PER PROTOCOL IV ; Start 10/05/18 at 23:00 Ondansetron HCl (Zofran Inj) 4 mg Q6H PRN IV NAUSEA/VOMITING Last administered on 10/10/18 05:52; Admin Dose 4 MG; Start 10/05/18 at 23:00 Acetaminophen (Tylenol Tab) 650 mg Q6H PRN PO .PAIN 1-3 OR TEMP; Start 10/05/18 at 23:00 Acetaminophen (Tylenol Supp) 650 mg Q6H PRN [place] .PAIN 1-3 OR TEMP; Start 10/05/18 at 23:00 Docusate Sodium (Colace) 100 mg Q12H PRN PO .CONSTIPATION; Start 10/05/18 at 23:00 Magnesium Hydroxide (Milk Of Mag) 30 ml DAILY PRN PO .CONSTIPATION; Start 10/05/18 at 23:00 Bisacodyl (Dulcolax) 5 mg DAILY PRN PO .CONSTIPATION; Start 10/05/18 at 23:00 Albuterol (Proventil 0.083% (Neb)) 1.25 mg Q6H RESP THERAPY HHN Last administered on 10/13/18 08:52; Admin Dose 1.25 MG; Start 10/06/18 at 20:00 Ipratropium [place] (Atrovent 0.02% (Neb)) 0.5 mg Q6H RESP THERAPY HHN Last administered on 10/13/18 08:52; Admin Dose 0.5 MG; Start 10/06/18 at 20:00 Pramipexole (Mirapex) 0.75 mg QHS PO Last administered on 10/12/18 21:30; Admin Dose 0.75 MG; Start 10/06/18 at 21:00 Famotidine (Pepcid) 20 mg BID PO Last administered on 10/13/18 08:39; Admin Dose 20 MG; Start 10/06/18 at 21:00 Collagenase (Santyl) 1 applic BID TOP Last administered on 10/13/18 08:40; Admin Dose 1 APPLIC; Start 10/09/18 at 16:00 Metoclopramide HCl (Reglan) 10 mg Q6H PRN IV NAUSEA; Start 10/10/18 at 12:00 Acetaminophen/ Hydrocodone Bitart ([place] (5/325)) 1 tab Q6 PRN PO PAIN LEVEL 7- 10 Last administered on 10/13/18 02:53; Admin Dose 1 TAB; Start 10/10/18 at 13:00 Alprazolam (Xanax) 0.5 mg BID PRN PO ANXIETY Last administered on 10/12/18 21:34; Admin Dose 0.5 MG; Start 10/10/18 at 13:00 Doxycycline Hyclate (Vibramycin) 100 mg BID PO Last administered on 10/13/18 08:39; Admin Dose 100 MG; Start 10/10/18 at 21:00 Lorazepam (Ativan) 1 mg Q6H PRN IV ANXIETY Last administered on 10/13/18 04:51; Admin Dose 1 MG; Start 10/11/18 at 12:30 Lamotrigine (Lamictal) 25 mg DAILY PO Last administered on 10/13/18 08:39; Admin Dose 25 MG; Start 10/12/18 at 12:00 Polyethylene Glycol (Miralax) 17 gm DAILY PRN PO CONSTIPATION; Start 10/12/18 at 17:30 Bumetanide (Bumex) 1 mg BID DIURETICS PO Last administered on 10/13/18 12:03; Admin Dose 1 MG; Start 10/13/18 at 12:00 ALMA ROSA BARNES NP October 13, 2018 13:15
--- NOTE | 2018-10-13 13:15 | DS ---
Date/Time of Note Date/Time of Note DATE: 10/13/18 TIME: 13:15 Discharge Summary Admission/Discharge Info Admit Date/Time October 05, 2018 at 19:04 Discharge Date/Time Discharge Diagnosis CHF exacerbation, BLE edema Patient Condition: Stable Consults cardiology, dr Bond, plastic surgeon dr Leos, dr Walter , [place], [facility] pulmonology Hx of Present Illness Hospital Course This is a 63-year-old female who had transgender surgery in past presents with progressive worsening shortness of breath, lower extremity edema and cough over the past few weeks. Patient has initially noticed increased lower extremity edema for 2 weeks. She had a recent biopsy done from the lesion on her right leg by dr Leos. She thinks since then, everything is started. She also complains with exertional shortness of breath. She complains of a dry cough which is been going on for months and occasional wheezing. She feels better after resuming nebulizers in the hospital. She does admit to significant marijuana use daily, she quit smoking cigarettes 2011. PMX: CHF, history of restless legs syndrome, Hx of a.fib. on Eliquiz, history of transgender, currently on estrogen Surgical history: In 1968 tonsillectomy, in 1973, wisdom teeth extraction, 2000, removal of Tellez's neuroma, 2000, left wrist fracture fixed, 1997, open heart surgery, mitral valve repair 05/2009, full facial reconstruction, facelift, neck lift 03/2013 as far as gender reassignment surgery, 2012, leg veins palliative surgery, 2014, facelift, neck lift, breast augmentation, and hair transplants. 1. SOB with acute decompensated congestive heart failure, EF 50% 2. Chronic atrial fibrillation, controlled 3. History of mitral valve repair 4. Cough 5. Obesity 6. History of restless legs syndrome, 7. Lymphedema lower extremities mixed etiology pt had vascular surgery on lower extremities, also abdominal liposuction. 8. History of being transgender , now changed gender, currently on estrogen 9. Keratoacanthoma right leg with cellulitis, s/p biopsy, results are pending 10, S/p tonsillectomy, S.p removal of Tellez's neuroma, 2000, left wrist fracture fixed, 1997, open heart surgery, mitral valve repair 05/2009, full facial reconstruction, facelift, neck lift 03/2013 as far as gender reassignment surgery, 2013, leg veins palliative surgery, 2015, facelift, neck lift, breast augmentation twice, liposuction, and hair transplants. 10. hx of trauma right foot recently 11. Anemia During hospitalization pt was on telemetry service. She was started on Vancomycin IV and Rocephin per dr Walter ID consult. Numerous consultants were called to help pt in her condition. Due to pt lymphedema CT scan of the abdomen and pelvis was reviewed, non specific. Pt was recommended to elevate the legs all the time as per surgery to [address] scan of abdomen was ordered tht was positive for diverticulosis and some changes to after transgender surgery. She was compliant. She was given supp. oxygen with nebulizer treatments to relieve SOB. Bl. cul was resulted as negative. Pt was placed in fluid restrictions [address] of her chest revealed no evidence of significant volume overload, some changes in right lung, pleural effusion. Dr Bond was called to manage pt CHF and A.fib. Echocardiogram was ordered and revealed : Ejection fraction is visually estimated at 50 %. Abnormal Diastolic Function. Lower extremity Dopplers were ordered , it negative for deep vein thrombosis. Pt had adequate pain control with stool softeners. Dr Coy, was consulted pt as a pulmonology due to abnormal chest xray. US of chest showed small pleural effusion. Chest CT ordered and was reviewed, which showed volume loss in the right lung with chronic pleural thickening and atelectasis. He interpreted it as a chronic right lung process which does not require further workup at present. He recommended to continue treatment of cellulitis, repeat CT of the chest in 6 months' time and encourage activity and bronchodilator treatment. Dr Leos, plastic surgeon, was consulted pt regarding her right leg keratoacanthoma. He observed that after few days of treatment her legs are less tense and less tight than before. Apparently, the patient has been started on Bumex diuretic a couple of days ago and appears that initiation of new diuretic plus elevation of foot of the bed 30 degrees at least for longer time, both had some effect on decreasing the edema, lymphedema and pitting edema to some extent. Also patient feels better in regard to shortness of breath; therefore, the decision has been made to discharge the patient home to be followed by director clinical pharmacology. The patient is being discharged on Bumex or bumetanide 1 mg p.o. b.i.d. Additionally pt was recommended to c/w antibiotic doxycycline. The romain ent was given instruction to apply Santyl ointment on wound on the anterior aspect of the right leg b.i.d. and cover it with sterile sponges and also Tegaderm. Especially elevation of foot of bed was emphasized to the patient and patient's friend and she accepted to do so. The patient can also come to Dr. Gerard (Dr. Leos) office clinic next week for followup. Dr Bond, cardiology consulted pt on cardiology. Pt was initially started on Lasix BID with fluid restrictions. There were some improvement. Patient reported improvement in shortness of breath and lower extremity edema after Bumex drip. He started pt on p.o. Bumex [address] Bond ordered to continue anticoagulation as tolerated. Pt also developed mild anemia. Psychiatry evaluation was performed during hospitalization due to pt unstable mood and deprivation of marijuana. and pt was recommended to be started on Lamotrigine as an addition to XAnax. Pt was offered a psychological support due to her depression and for mood stabilization. Prior to d/c pt was ambulating with her partner and did not used any supplemental oxygen nor assistive devices. Home Meds Active Scripts Gabapentin* (Gabapentin*) 300 Mg Capsule, 300 MG PO DAILY, #60 CAP Prov:KIRTI LORENZO 10/13/18 Lamotrigine* (Lamotrigine*) 25 Mg Tablet, 25 MG PO DAILY for 30 Days, TAB Prov:KIRTI LORENZO 10/13/18 Doxycycline* (Vibramycin*) 100 Mg Tab, 100 MG PO BID for 7 Days, TAB Prov:KIRTI LORENZO 10/13/18 Bumetanide* (Bumetanide*) 1 Mg Tablet, 1 MG PO BID DIURETICS for 30 Days, TAB Prov:KIRTI LORENZO 10/13/18 Reported Medications Estradiol (Estradiol) 1 Each Patch.tdwk, 1 EACH TD Q7D 10/05/18 Pramipexole* (Pramipexole*) 0.25 Mg Tablet, 0.25 MG PO TID, TAB 10/05/18 Apixaban* (Eliquis*) 5 Mg Tablet, 5 MG PO BID, TAB 10/05/18 Discontinued Reported Medications Torsemide (Torsemide) 20 Mg Tablet, 20 MG PO DAILY, TAB 10/05/18 Follow-up Plan cardiology 2 weeks PCP 1 week -plastic surgeon 2 weeks -psychiatry with continuation program Primary Care Provider Not On Staff Doctor Time spent on discharge: > 30 minutes (complicated required numerous consultation and notes review) Pending Labs Laboratory Tests Test 10/13/18 06:40 Sodium Level 140 mmol/L (135-144) Potassium Level 4.3 mmol/L (3.5-5.1) Chloride Level 100 mmol/L (97-110) Carbon Dioxide Level 31 mmol/L (21-31) Anion Gap 9 (5-13) Blood Urea Nitrogen 29 mg/dl (7-20) Creatinine 1.04 mg/dl (0.44-1.00) Est Glomerular Filtrat Rate mL/min 54 mL/min (>60) Glucose Level 109 mg/dl (70-220) Calcium Level 10.1 mg/dl (8.4-10.2) Phosphorus Level 4.4 mg/dl (2.5-4.9) Magnesium Level 2.2 mg/dl (1.7-2.5) KIRTI LORENZO October 13, 2018 13:15
--- NOTE | 2018-10-13 16:12 | PN ---
DATE: 10/13/2018 SUBJECTIVE: States that she feels that her legs are less tense and less tight than before. Apparent ly, the patient has been started on Bumex diuretic a couple of days ago and appears that initiation o f new diuretic plus elevation of foot of the bed 45 degrees at least for longer time, both had some e ffect on decreasing the edema, lymphedema and pitting edema to some extent. Also, the patient feels better in regard to shortness of breath; therefore, the decision has been made to discharge the patie nt today home to be followed by side seam tender. The patient is being discharged on Bumex or bumetanide 1 mg p.o. b.i.d. This is a diuretic and also antibiotic doxycycline. The patient was given instruc tion to apply Santyl ointment on wound on the anterior aspect of the right leg b.i.d. and cover it wi th sterile sponges and also Tegaderm. Especially elevation of foot of bed was emphasized to the romain ent and patient's friend and she accepted to do so. The patient can also come to Dr. Gerard (Dr. Lyn saez) office clinic next for followup. OBJECTIVE: VITAL SIGNS: Today reveals temperature of 97.6, heart rate is 74, regular rhythm. HEART: Regular. LUNGS: Clear. ABDOMEN: Soft. EXTREMITIES: As was mentioned lower extremity tightness and erythema has decreased much. Still, the lower part of both legs skin is slightly tight and appears that there is some lymphedema over there, but on the thighs from knee up is much softer and there is wrinkle which shows evidence that the exc ess fluid has been drained from there. LABORATORY DATA: Sodium, potassium are normal. BUN is slightly elevated to 29, has been also 29 yes terday, creatinine 1.04 which is very minimally elevated. PLAN: As was mentioned. Therefore, the patient is being discharged home with medication from cardio logist and also antibiotics from infectious disease colleagues. From surgical point of view, we advi sed her to apply Santyl over the wound b.i.d., cover with sponge and Tegaderm and to come to my surgi buster clinic next . Dictated By: JAYDE DEAL/RAJEEV Conf#: [id number] DID#: [id number] CC: GARDENIA DOSHI MD; BRIDGER K[employer];*EndCC*
== END 2018-10-13 15:20 | disposition home or self-care (01) | DRG 292 ==
LOC: E/R 11:34 → MS3 19:04 → TEL 10-06 16:17
PROVIDERS: ADMIT Internal Medicine Nephrology; ATTEND Internal Medicine Nephrology
DX: I50.41 Acute combined systolic (congestive) and diastolic (congestive) heart failure (principal); J44.1 Chronic obstructive pulmonary disease with (acute) exacerbation; I42.9 Cardiomyopathy, unspecified; L03.115 Cellulitis of right lower limb; R45.851 Suicidal ideations; F31.63 Bipolar disorder, current episode mixed, severe, without psychotic features; E66.9 Obesity, unspecified; Z68.33 Body mass index [BMI] 33.0-33.9, adult; I89.0 Lymphedema, not elsewhere classified; I48.2 Chronic atrial fibrillation; D64.9 Anemia, unspecified; L85.8 Other specified epidermal thickening; Z87.891 Personal history of nicotine dependence; Z79.01 Long term (current) use of anticoagulants
CPT/HCPCS: 36415; 71045; 71275; 74176; 76604; 80048; 80053; 80202; 81001; 82550; 82553; 83036; 83605; 83735; 83880; 84100; 84132; 84235; 84443; 84484; 85025; 85610; 85730; 87070; 87081; 87086; 93005; 93306; 93970; 93971; 94640; 94664; 96374; J0696; J1940; J2060; J2405; J2543; J3370; J7050; Q9967

== ENCOUNTER 2018-11-06 12:55 | Emergency (ER) | payer BC ==
[~2018-11-06] VITALS: Ht 177.8 cm; Wt 102.9 kg
[~2018-11-06 12:55] MED LIST: APIX5TAB PO; BUME1TAB PO; DOXY100T2 PO; ESTR1PAT80 TD; GABA300C16 PO; LAMO25TA8 PO; PRAM0.25 PO
[2018-11-06 13:02] VITALS: Ht 177.8 cm; Wt 102.9 kg
[2018-11-06] MEDS ORDERED: AMOX1TAB10 PO (16:01)
[2018-11-06] MEDS ORDERED: HYDR-4011 PO (16:01)
[2018-11-06] MEDS ORDERED: HYDR-3980 PO (16:07)
[2018-11-06 16:38] VITALS: BP 134/86; PULSE 75; RESP 17
--- NOTE | 2018-11-08 15:29 | ERD ---
ER Documentation Chief Complaint Chief Complaint trip & fall in bedroom 0300. nose & mouth pain & bruising HPI 63-year-old female presenting with facial pain after trip and fall earlier this morning. Patient was walking to the bathroom in the dark room and she caught her foot on a dresser and fell forward into another dresser. She denies any loss of consciousness sustained facial pain and bloody nose. Denies any dental pain. Denies any headaches or vomiting. Denies any visual changes. Patient is concerned she may have fractured her nose. Denies other medical problems. NKDA. Surgical history denies. Social history denies ROS All systems reviewed and are negative except as per history of present illness. Medications Home Meds Active Scripts Hydrocodone/Acetaminophen (Grandin 10-325 Tablet) 1 Each Tablet, 1 EACH PO DAILY, #7 TAB Prov:PHIL HAN PA-C 11/06/18 Amoxicillin/Potassium Clav (Amox-Clav 875-125 mg Tablet) 875-125 mg Tab, 1 TAB PO BID for 7 Days, #14 TAB Prov:PHIL HAN PA-C 11/06/18 Gabapentin* (Gabapentin*) 300 Mg Capsule, 300 MG PO DAILY, #60 CAP Prov:KIRTI LORENZO 10/13/18 Lamotrigine* (Lamotrigine*) 25 Mg Tablet, 25 MG PO DAILY for 30 Days, TAB Prov:KIRTI LORENZO 10/13/18 Doxycycline* (Vibramycin*) 100 Mg Tab, 100 MG PO BID for 7 Days, TAB Prov:KIRTI LORENZO 10/13/18 Bumetanide* (Bumetanide*) 1 Mg Tablet, 1 MG PO BID DIURETICS for 30 Days, TAB Prov:ZENTSKIRIT MERAZ 10/13/18 Reported Medications Estradiol (Estradiol) 1 Each Patch.tdwk, 1 EACH TD Q7D 10/05/18 Pramipexole* (Pramipexole*) 0.25 Mg Tablet, 0.25 MG PO TID, TAB 10/05/18 Apixaban* (Eliquis*) 5 Mg Tablet, 5 MG PO BID, TAB 10/05/18 Allergies Allergies: Coded Allergies: No Known Allergy (Unverified , 10/05/18) spoke with pt, no known allergy PMhx/Soc History of Surgery: Yes (SEX CHANGE ) Anesthesia Reaction: No Hx Neurological Disorder: No Hx Respiratory Disorders: No Hx Cardiac Disorders: Yes (A FIB, MITRAL VALVE REPAIRED) Hx Psychiatric Problems: No Hx Miscellaneous Medical Probl: No Hx Alcohol Use: No Hx Substance Use: No Hx Tobacco Use: No Smoking Status: Never smoker FmHx Family History: No diabetes, No coronary disease, No other Physical Exam Vitals Vital Signs Date Temp Pulse Resp B/P (MAP) Pulse Ox O2 O2 Flow FiO2 Time Delivery Rate 11/06/18 98.1 75 17 134/86 98 Room Air 16:38 (102) 11/06/18 99.1 79 18 118/75 96 13:02 (89) Physical Exam GENERAL: The patient is well-appearing, well-nourished, in no acute distress HEENT: Atraumatic. Conjunctivae are pink. Pupils equal, round, and reactive to light. There is no scleral icterus. Tympanic membranes clear bilaterally. Oropharynx clear. CHEST: Clear to auscultation bilaterally. There are no rales, wheezes or rhonchi. HEART: Regular rate and rhythm. No murmurs, clicks, rubs or gallops. NEUROLOGIC: Alert and oriented. Cranial nerves II through XII intact. Motor strength in all 4 extremities with 5 out of 5 strength. Sensation grossly intact. Normal speech and gait. SKIN: Contusions noted to the face with superficial abrasions. No lacerations. Procedures/MDM DIAGNOSTIC IMAGING REPORT Patient: LAVELL LIM : 1955 Age: 63 Sex: F [id number] DOS: 11/06/18 [facility] Ordering MD: LEROY HAN PA-C Location: [facility] Room/Bed: PROCEDURE: CT face without contrast CLINICAL INDICATION: Fall. Face pain TECHNIQUE: CT of the face without contrast was performed on a multidetector CT scanner, with multiplanar reformats. One or more of the following dose reduction techniques were used: Automated exposure control, adjustment in mA and / or kV according to patient size, use of iterative reconstructive technique. CTDIvol = 29 mGy and DLP = 468 mGy-cm. DICOM images are available. COMPARISON: None available. FINDINGS: No acute fracture is identified. The temporomandibular joints are intact. No injury of the orbital structures is identified. The orbital structures are unremarkable. A chronic fracture is identified involving the bilateral frontal sinus anterior rubio and adjacent bilateral superior - medial orbital rims with overlying fixation plate. Chronic-appearing bilateral nasal fractures are identified involving the frontal processes of the maxilla. The residual right frontal sinus is opacified. Mild mucosal thickening is seen in the left maxillary sinus and residual left frontal sinus, and bilateral anterior ethmoid sinuses. Noted is rightward nasal septal deviation and left manuel bullosa. Small lucencies are identified at the inferior cortex of the parasymphyseal mandible bilaterally without gross destructive osseous change or overlying soft tissue mass or fluid collection seen. There are a couple of punctate adjacent radiodensities. IMPRESSION: 1. No acute facial fracture/orbital injury identified. 2. Chronic fractures of the bilateral anterior frontal sinus rubio and adjacent orbital rims status post fixation, and chronic bilateral nasal fractures. 3. Small relatively nonaggressive appearing lucencies at the parasymphyseal mandibular inferior cortex with adjacent punctate radiodensities of uncertain etiology, query additional sequela of prior trauma. 4. Mild paranasal sinus mucosal disease described above. MDM: 63-year-old female presenting with contusions to the face. Patient will be treated prophylactically for potential facial fracture. She will be treated with antibiotics. I have low suspicion for intracranial hemorrhage or neuro deficit. I have low suspicion for posterior epistaxis. I have low suspicion for orbital or ocular injury. Patient is recommended to follow-up with ENT for further evaluation and discharged with pain medications. Patient is told symptoms change or worsen to return immediately to the ER. All questions answered at discharge Departure Diagnosis: Primary Impression: Facial fracture Condition: Stable Patient Instructions: Facial Fracture Referrals: [facility] YOU HAVE RECEIVED A MEDICAL SCREENING EXAM AND THE RESULTS INDICATE THAT YOU DO NOT HAVE A CONDITION THAT REQUIRES URGENT TREATMENT IN THE EMERGENCY DEPARTMENT. FURTHER EVALUATION AND TREATMENT OF YOUR CONDITION CAN WAIT UNTIL YOU ARE SEEN IN YOUR DOCTORS OFFICE WITHIN THE NEXT 1-2 DAYS. IT IS YOUR RESPONSIBILITY TO MAKE AN APPOINTMENT FOR FOLOW-UP CARE. IF YOU HAVE A PRIMARY DOCTOR --you should call your primary doctor and schedule an appointment IF YOU DO NOT HAVE A PRIMARY DOCTOR YOU CAN CALL OUR PHYSICIAN REFERRAL HOTLINE AT IF YOU CAN NOT AFFORD TO SEE A PHYSICIAN YOU CAN CHOSE FROM THE FOLLOWING [facility] CL[facility] [address] [facility] [address] [facility] [address] [facility] [address] [facility]. [facility] [address] [facility]. [facility] [address] Additional Instructions: FOLLOW UP WITH YOUR PRIMARY CARE PHYSICIAN TOMORROW.Return to this facility if you are not improving as expected. PHIL HAN PA-C Nov 08, 2018 15:29
== END 2018-11-06 16:39 | disposition home or self-care (01) ==
LOC: FTE 12:55
DX: S02.92XA Unspecified fracture of facial bones, initial encounter for closed fracture (principal); W01.0XXA Fall on same level from slipping, tripping and stumbling without subsequent striking against object, initial encounter; Y92.003 Bedroom of unspecified non-institutional (private) residence as the place of occurrence of the external cause; Z79.01 Long term (current) use of anticoagulants
CPT/HCPCS: 70486; Z7502

== ENCOUNTER 2018-11-16 20:42 | Emergency (ER) | payer SELFPAY ==
[~2018-11-16] VITALS: Ht 177.8 cm; Wt 100.0 kg
[~2018-11-16 20:42] MED LIST changes: +AMOX1TAB10 PO; +HYDR-3980 PO
[2018-11-16 20:51] VITALS: BP 137/89; PULSE 68; RESP 18; Ht 177.8 cm; Wt 100.0 kg
== END 2018-11-16 21:46 | disposition left against medical advice (07) ==
LOC: FTE 20:42
DX: Z53.21 Procedure and treatment not carried out due to patient leaving prior to being seen by health care provider (principal)

== ENCOUNTER 2019-03-31 13:57 | Emergency (ER) | payer BC ==
[~2019-03-31] VITALS: Ht 177.8 cm; Wt 98.3 kg
[~2019-03-31 13:57] MED LIST changes: +AZIT250T PO; -BUME1TAB PO; +BUME1TAB3 PO; +D-ME473S2 PO; +MED4DP PO
[2019-03-31 14:15] VITALS: Ht 177.8 cm; Wt 98.3 kg
[2019-03-31] MEDS ORDERED: ALBUTEROL 0.083% (NEB) 2.5 MG/3 ML AMP HHN STA (16:13)
[2019-03-31] MEDS ORDERED: METHYLPREDNISOLONE 125 MG INJ IM ONE (16:30)
[2019-03-31] MEDS ORDERED: IPRATROPIUM (NEB) 0.5 MG/2.5 ML AMP HHN ONE (16:30)
[2019-03-31 17:28] VITALS: BP 141/89; PULSE 89; RESP 20
[2019-03-31] MEDS ORDERED: IBUPROFEN 800 MG TAB PO ONE (17:30)
== END 2019-03-31 17:28 | disposition home or self-care (01) ==
LOC: FTE 13:57
DX: J98.11 Atelectasis (principal); J45.909 Unspecified asthma, uncomplicated; Z79.01 Long term (current) use of anticoagulants
CPT/HCPCS: 71046; 94664; 96372; J2930; Z7502; Z7610